=== PATIENT | female | born 1940 | race Caucasian/White ===

== ENCOUNTER 2019-06-20 12:53 | Outpatient (CLI) | payer MEDICARE, OTHER, SELFPAY ==
--- NOTE | 2019-06-20 13:01 | XR_ITS ---
WS: [id number] Left rib detail, 06/20/2019 Clinical Data: ATYPICAL CHEST PAIN Comparison: PA and lateral chest, 06/20/2019. Findings: No rib fractures are seen. There are clips in the left axilla and the left breast. There is no pneumo thorax or subcutaneous emphysema. There is patchy atelectasis in the left lung base with a possible s mall effusion. XR/XR ribs LT 2V* [id number] Impression: 1. Negative for left rib 2. Atelectasis in the left lung base with minimal left effusion and recommend r epeat PA and lateral chest in 2-3 days.
--- NOTE | 2019-06-20 13:01 | XR_ITS ---
WS: [id number] Chest 2 views, 06/20/2019 Clinical Data: ATYPICAL CHEST PAIN Comparison: AP portable chest, 04/23/2009. Findings: No nodules, masses or effusions are seen. The heart is normal. The pulmonary vascularity is not increased. No pneumonia or pneumothorax is seen. The aortic arch and descending aorta show calci fication and tortuosity. There are clips overlying the left breast and left axilla. There is minimal atelectasis at the left costophrenic angle. XR/XR chest 2V* [id number] Impression: Atherosclerosis.
== END 2019-06-20 12:54 | disposition home or self-care (01) ==
PROVIDERS: Family Provider Family Medicine; PCP Family Medicine; Visit Provider Family Medicine
DX: J98.11 Atelectasis (principal); I70.0 Atherosclerosis of aorta; R07.89 Other chest pain
CPT/HCPCS: 71046; 71100

== ENCOUNTER 2019-07-09 07:41 | Outpatient (CLI) | payer MEDICARE, OTHER, SELFPAY ==
--- NOTE | 2019-07-09 08:12 | CT_ITS ---
WS: [id number] CT CHEST TECHNIQUE: Contrast enhanced CT of the chest with coronal and sagittal reformatted images. CLINICAL INFORMATION: PLEURAL EFFUSION COMPARISON: None. DLP: 737.[address] scans at [facility] use at least one of these dose optimization techniques: automat ed exposure control; mA and/or kV adjustment per patient size (includes targeted exams where dose is matched to clinical indication); or iterative reconstruction. FINDINGS: Prior postoperative changes left lumpectomy with surgical clips in the left axilla. Small left pleura l effusion with compressive atelectasis in the left lung base. Left upper lobe pleural-based pulmonar y lesion measuring 1.6 x 1.4 x 2.1 cm. This is deep to the breasts surgical clips from prior lumpecto my. Some soft tissue thickening in the adjacent chest wall may represent local metastatic spread vers us primary lung lesion. Enlarged numerous lymph nodes in the lower left neck, anterior mediastinum, A P window, and hilum bilaterally. Enlarged paratracheal lymph nodes. Enlarged subcarinal lymph nodes. Largest lymph nodes measure approximately 1.3 CM. Subsegmental atelectasis extending to the left hilum. Calcified granuloma right upper lobe. Calcified hilar and subcarinal lymph nodes. No axillary lymphadenopathy. Proximal main pulmonary arteries appear normal. Normal caliber thoracic aorta. Adrenal glands are normal. Small esophageal hiatal hernia. Low-attenuation lesions within the liver the largest in the left hepatic lobe measuring 12 mm. These most likely represent hepatic cysts but some are too small to characterize. Liver is only partially visualized. CT/CT chest w con* [id number] IMPRESSION: 1. Left upper lobe subpleural pulmonary lesion measuring 1.6 x 1.4 x 2.1 cm wi th subsegmental atelectasis extending to the left hilum. Findings are suspiciou s for neoplasm. Adjacent lumpectomy clips in the overlying breast. This may rep resent local metastatic spread of disease versus primary lung lesion. This is n ot easily amenable to CT-guided biopsy due to subpectoral location. Consider PE T/CT for further evaluation. 2. Small left pleural effusion with compressive atelectasis left lung base. 3. Lymphadenopathy in the lower neck. Lymphadenopathy anterior mediastinal, pa ratracheal, and hilum bilaterally suspicious for metastatic disease. 4. A few low-attenuation lesions in the liver likely represent hepatic cysts h owever some are too small to characterize. This can be followed up with ultraso und and/or CT abdomen pelvis. 5. Small esophageal hiatal hernia.
[2019-07-09 08:36] LABS: Blood Urea Nitrogen 10 mg/dL (8-23)
[2019-07-09] MEDS: iohexol 300 mg/mL 100 mL Btl IV (08:44)
== END 2019-07-09 07:42 | disposition home or self-care (01) ==
LOC: RADWPI 07:45
PROVIDERS: Family Provider Family Medicine; PCP Family Medicine; Visit Provider Family Medicine
DX: J90 Pleural effusion, not elsewhere classified (principal); J98.4 Other disorders of lung; R59.0 Localized enlarged lymph nodes; K44.9 Diaphragmatic hernia without obstruction or gangrene
CPT/HCPCS: 71260; 82565; 84520; Q9967

== ENCOUNTER 2019-08-03 06:34 | Day surgery (SDC) | payer MEDICARE, OTHER, SELFPAY ==
[2019-08-02 13:25] VITALS: BMI 26.4
[2019-08-03] VITALS (14 sets, daily range): BP systolic 121–189; BP diastolic 71–95; PULSE 72–95; RESP 14–26; TEMP 36.1–36.6; O2SAT 91–98
[2019-08-03] MEDS: sodium chloride 0.9% 1,000 ML 30 ML IV (07:15)
[2019-08-03] MEDS: scopolamine 1.5 Patch 1 PATCH TRANSDERMA (07:15)
--- NOTE | 2019-08-03 07:19 | ANES.PREANE2 ---
Pre-Anesthetic Assessment Pre-Anesthetic Assessment: Height/Weight: Height 1.6 m Weight 67.585 kg Temp Pulse Resp BP Pulse Ox 97.7 F 89 16 121/71 95 08/03/19 07:03 08/03/19 07:03 08/03/19 07:03 08/03/19 07:03 08/03/19 07:03 Preop Diagnosis: Possible lung malignancy Proposed Procedure: Operation Date: 08/03/19 08:10 Proposed Procedures p Ebus(Not Applicable) - Jared Sykes MD s navigational Bronchoscopy w para(Not Applicable) - Jared Sykes MD Last intake: Intake Last Liquid Date 08/02/19 Last Liquid Time 22:00 Last Solid Date 08/02/19 Last Solid Time 21:00 Social: Social History: No alcohol and No tobacco Exam: Pre-Anes Outpt Exam: alert, oriented x 3, clear to auscultation bilaterally and regular rate & rhythm Airway: Submandibular: WNL Cervical ROM: WNL MP: 1 Dentition: False (lower) and Other (teeth ok) Additional comments: severe PONV History/ROS: No significant history except as noted Pulmonary: Pulmonary: BRANDT Comments: lung mass CV/HEM: CV/HEM: None reported : : None reported Hepatic: Hepatic: None reported GI: GI: GERD (occ) Metabolic: Metabolic: None reported Musc/skel: Musc/skel: None reported Neuropsych: Neuropsych: Anxiety and Depression Anesthetic Plan: ASA status: 3 Anesthesia: Anesthesia Evaluation and General Risk of > 500 ml blood loss (7ml/kg in children): No Meds/Allergies Current Medications: Current Medications Generic Name Dose Route Start Last Admin Trade Name Freq PRN Reason Stop Dose Admin Sodium Chloride 1,000 mls @ 30 ml s/hr 08/03/19 07:00 08/03/19 07:15 Sodium Chloride 0.9% IV 08/04/19 06:59 30 mls/hr .Q24H MAGDALENA Administration PFSH Anesthesia PFSH: Medical History Breast cancer Breast - Ductal carcinoma Left breast in 2003. Lumpectomy and chemotherapy done in [facility]. she states that she follows up with the oncology department in [facility]. Depression Labial abscess - Anticipated performing a vulvar biopsy, that after the local was injected and purulent drainage returned the procedure was transitioned to an I&D. small amount of pus noted; flushed til clear Still uncertain if abscess versus mass Start clindamycin oral x 10 days Warm water soaks several times/day Vegetable shortening for skin barrier due to incontinence If no improvement after abx, needs biopsy Return in 3 weeks if needed Parathyroid dysfunction Patient denies medical problems Patient denies any past medical history of hypertension, diabetes, heart, lung, liver, kidney, bleeding, or clotting problems. Surgical History History of dilation and curettage Done for heavy bleeding in 1965 History of loop electrical excision procedure (LEEP) Done for an abnormal Pap smear in 1999. She states that all Pap smears since then have been normal. History of lumpectomy of left breast Left breast cancer 2003. She states that she had lymph node removal a month after this procedure. History of parathyroidectomy Done in the Family History Mother Diabetes Thyroid condition Brother Diabetes Father Heart disease Family/Other Patient denies medical problems Patient denies any family history of hypertension, stroke, hypercholesterolemia, breast cancer, ovarian cancer, uterine cancer, colon cancer. Social History Smoking and tobacco status: never smoked Alcohol intake: never Lives independently: Yes Household members: none Marital status: / Current occupational status: retired History of recent travel: No Current gender identity: Female Data Anesthesia Cardiac Studies: No Data to Display
--- NOTE | 2019-08-03 07:35 | CT_ITS ---
WS: [id number] CT CHEST TECHNIQUE: Noncontrast CT of the chest with coronal and sagittal reformatted images. CLINICAL INFORMATION: Lung Nodule COMPARISON: CT July 09, 2019 DLP: 501.[address] scans at [facility] use at least one of these dose optimization techniques: automat ed exposure control; mA and/or kV adjustment per patient size (includes targeted exams where dose is matched to clinical indication); or iterative reconstruction. FINDINGS: Images obtained for planning bronchoscopy. Again seen is the left upper lobe subpleural pulmonary les ion measuring 1.6 x 1.4 x 2.1 cm. Subsegmental atelectasis extends to the left hilum unchanged suspic ious for neoplasm. Adjacent lumpectomy clips in the overlying breast. Small left pleural effusion has improved. Lymphadenopathy in the lower neck and anterior mediastinum, paratracheal, and hilum. Small esophageal hiatal hernia. A few low-attenuation lesions in the liver likely hepatic cyst but some are too small to characterize. Small pericardial effusion. CT/CT chest wo con [id number] IMPRESSION: Images obtained for bronchoscopy guidance.
--- NOTE | 2019-08-03 07:49 | W.PM.OPSUD ---
Surgery/Procedure H&P Update DATE OF PROCEDURE: August 03, 2019 DATE H&P PERFORMED: 07/26/19 H&P UPDATE INFORMATION: I have reviewed H&P completed within last 30 days, I have examined patient prior to procedure and No changes to prior documentation PREOP DIAGNOSIS: Possible lung malignancy PLANNED PROCEDURE: With inspection of the airway, endobronchial; transbronchial swab nodes, and navigational bronchoscopy guided transbronchial biopsies and fine-needle aspiration of the left upper lobe lung nodule and left-sided thoracentesis. Operation Date: 08/03/19 08:10 Proposed Procedures p Ebus(Not Applicable) - Jared Sykes MD s navigational Bronchoscopy w para(Not Applicable) - Jared Sykes MD
--- NOTE | 2019-08-03 08:20 | PM.ACPR ---
Procedure/Consent Time out: Time Out Performed: Yes Consent: Consent for Procedure: Consent obtained from patient Procedure Narrative: Name of the procedure: Left sided thoracentesis. Indication: Suspicion for malignant pleural effusion Anesthetics: Local anesthesia with 1% lidocaine. IV pain medication: None. Description of the procedure: The procedure was explained to the patient in detail including the risks and a consent was obtained. The left hemithorax was scanned with ultrasound to find a safe fluid pocket. Small free-flowing fluid was noted. There was no complexity. Following identification of the fluid pocket the site was marked. The site was cleaned using sterile technique. Lidocaine 1% was injected into the skin and the subcutaneous tissue. Subsequently, the periosteum in the parietal pleural was also anesthetized using lidocaine. The pleural space was entered in the posterior axillary line in the left sixth intercostal space. Straw-colored fluid was aspirated. About 460 cc of fluid was aspirated. Sample: The pleural fluid was sent for cell count and differential, pH, protein, LDH, albumin, Gram stain and culture, fungal stain and culture, AFB stain and culture and cytology. Complications: None. Acute Procedures Epistaxis Control: Time out performed: Yes
[2019-08-03 08:45] LABS: Mononuclear %, Pleural Fluid 96 %; Polynuclear Cells, Pleural % 4 %
[2019-08-03 09:23] LABS: LDH Pleural Fluid 198 U/L; Total Protein Body Fluid 5 g/dL; Triglycerides, Pleural Fluid 14 mg/dL
[2019-08-03 09:24] LABS: Appearance, Pleural Fluid CLEAR (CLEAR); Color, Pleural Fluid Yellow (Pale Yellow)
[2019-08-03] MEDS: EPINEPHrine 1 mg/mL INJ XX (09:28)
[2019-08-03] MEDS: lidocaine 1% INJ 20 mL XX (09:29)
--- NOTE | 2019-08-03 11:39 | SUR.PHASEI ---
1138 PATIENT TO PACU AT THIS TIME FROM OR. RR EVEN AND UNLABORED. ORAL AIRWAY IN PLACE. SPO2 95% ON SIMPLE MASK AT 8L. PATIENT NOTED TO BE SLEEPING, PROTECTING AIRWAY.
--- NOTE | 2019-08-03 11:48 | PM.OP ---
Operative Report Date of procedure: August 03, 2019 Pre-op Diagnosis: Possible lung malignancy Post-op diagnosis: same Brief History: 79-year-old lady with left upper lobe lung nodule and PET positive lymph nodes coming in for bronchoscopy evaluation for suspected lung malignancy. Procedure: Name of the procedure: Bronchoscopy with inspection of the airway, bronchoalveolar lavage, endobronchial biopsies, endobronchial ultrasound-guided transbronchial needle aspiration of lymph nodes, navigational bronchoscopy guided transbronchial biopsies, fine-needle aspiration and control of bleeding. Indication: PET positive left upper lobe pulmonary nodule and mediastinal lymphadenopathy. Anesthesia: General anesthesia. Local anesthesia: The kathleen in the right and left mainstem bronchi were anesthetized with 1% lidocaine, 3 mL. Description of the procedure: The procedure was explained to the patient and the consent was obtained. The patient was brought to the OR. The patient underwent endotracheal intubation for general anesthesia. Following induction of general anesthesia, the bronchoscope was advanced through the ET tube. The lower trachea appeared to be somewhat narrowed due to excessive dynamic airway compression. The kathleen was splayed. The kathleen, the right and left mainstem bronchi are anesthetized with 1% lidocaine. In a systematic manner bilateral bronchial tree was then examined. The bronchoscope was advanced into the left mainstem bronchus. There was mucosal irregularity in the left secondary kathleen. There was also significant mucosal swelling. The bronchoscope can only be advanced up to the third subsegmental level in the anterior and apical posterior segments. The bronchoscope could be passed after the first subsegmental level in the lingular segment. There was some mucosal swelling of the left lower lobe bronchus as well. The bronchoscope was then introduced into the right mainstem bronchus. The right upper lobe, right middle lobe and right lower lobe bronchi were examined up to the third subsegmental level and no abnormalities were identified. Endobronchial biopsies were performed from the left secondary kathleen. 4 samples are obtained. Bronchoalveolar lavage was performed from the left upper lobe. 60 mL of normal saline was instilled, fluid return was 20 mL. Using navigational bronchoscopy, transbronchial biopsies were performed from the left upper lobe nodule. Multiple samples were obtained. Fine-needle aspiration was also obtained. The endobronchial ultrasound was introduced through the ET tube. Mediastinal and hilar lymphadenopathy was identified with the ultrasound. The lymph nodes did not show distinct cortex and Medela. Transbronchial needle aspiration was performed from 7, 4R, 10 R lymph node groups. Samples: 1. Bronchoalveolar lavage specimen was sent for Gram stain and culture, fungal stain and culture, AFB stain and culture, and cytology. 2. The endobronchial biopsies are sent for histopathology. 3. The transbronchial biopsies are sent for histopathology. The fine-needle aspiration was sent for cytology. 4. The transbronchial needle aspiration of the aforementioned lymph node groups were sent for cytology. Complications: There was no immediate complications. Follow-up: 1. Follow-up with me in 2 weeks time as outpatient.
--- NOTE | 2019-08-03 12:02 | SUR.PHASEI ---
1202 ORAL AIRWAY REMOVED AT THIS TIME. SPO2 97% ON SIMPLE MASK AT 8L.
[2019-08-03 12:27] LABS: PATH Referal YES
--- NOTE | 2019-08-03 12:34 | SUR.PHASEI ---
1231 PATIENT TO OPS AT THIS TIME. RR EVEN AND UNLABORED. DENIES PAIN.
== END 2019-08-03 15:15 | disposition home or self-care (01) ==
PROVIDERS: Internal Medicine Critical Care Medicine; Family Provider Family Medicine; PCP Family Medicine; Visit Provider Pathology Anatomic Pathology & Clinical Pathology
PROC: BB4BZZZ Ultrasonography of Pleura (ICD-10-PCS; CPT 31624; principal; 2019-08-03 08:10)
PROC: 0BJ08ZZ Inspection of Tracheobronchial Tree, Via Natural or Artificial Opening Endoscopic (ICD-10-PCS; CPT 31622; 2019-08-03 08:10)
DX: R91.8 Other nonspecific abnormal finding of lung field (principal); K21.9 Gastro-esophageal reflux disease without esophagitis; Z85.3 Personal history of malignant neoplasm of breast; Z82.49 Family history of ischemic heart disease and other diseases of the circulatory system; Z83.3 Family history of diabetes mellitus
CPT/HCPCS: 31624; 31625; 31629; 31653; 32554; 12345; 71250; 80500; 82945; 83615; 83986; 84157; 84478; 87070; 87075; 87186; 87205; 88112; 88173; 88305; 89050; J0171; J1100; J2001; J2405; J2704; J3010; J3490; J7030

== ENCOUNTER 2019-08-17 12:28 | Outpatient (CLI) | payer MEDICARE, OTHER, SELFPAY ==
--- NOTE | 2019-08-19 09:20 | ONC CON_ITS ---
Dr. Pedersen New Patient Note Patient: Melony Chu Unit #: [id number]: 1940 Dicatated By: Parth Pedersen M.D.Date of Visit: August 17, 2019 Onc MED New Patient/Consult Referring Physician: Dr. NICK SYKES M.D. Chief Complaint: Lung cancer. 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 Her disease appears to be stage IIIB (T1c, N3, M0). She has a history of having undergone lumpectomy/axillary lymph node sampling and radiation for left breast cancer in 2003. She also was given adjuvant chemotherapy and adjuvant hormonal therapy. She has had no evidence of recurrence of the breast cancer. In June 2019 she sustained an injury to her left chest after falling out of bed at night. Her chest/rib x-rays on 06/20/2019 showed atelectasis at the left lung base with minimal left effusion. There was no evidence for rib fracture. She continued to have pain, and she then had further evaluation with chest CT on 07/09/2019. That study showed a pleural-based pulmonary lesion in the left upper lobe measuring 1.6 x 1.4 x 2.1 cm. There was some soft tissue thickening in the adjacent chest wall. Numerous enlarged lymph nodes were noted in the lower neck, anterior mediastinum, AP window, and hilum bilaterally. This included enlarged paratracheal and enlarged subcarinal lymph nodes. The largest measured 1.3 cm. PET/CT on 07/21/2019 showed FDG avid subpleural nodule in the anterior left upper lobe measuring 1.9 x 1.5 cm, SUV 4.9. This appeared to most likely represent a primary lung carcinoma. A right lower lobe perihilar nodule measuring 2.7 x 1.7 cm was FDG avid with SUV 5.8. FDG positive lymph nodes were noted in the bilateral paratracheal, prevascular, subaortic, subcarinal, and bilateral hilar territories. Malignant nodes were also evident in the neck bilaterally, including bilateral supraclavicular, bilateral level IV, and left level III jugulodigastric territories. There was no evidence of other metastatic disease. She was referred to Dr. Sykes, and on 08/03/2019 she underwent bronchoscopy/EBUS with FNA biopsies of left upper lobe nodule and multiple lymph nodes. The left upper lobe mass biopsy showed non-small cell carcinoma, with further studies pending. Biopsies of station 4R, station 7, and station 10R nodes were all positive for metastatic non-small cell carcinoma. She is still feeling pretty good generally. She is still having significant pain in her upper left chest/upper back. The pain is worse with coughing. It has been significant enough to restrict her activity. Her ECOG score is 1. Her energy, though, is still pretty good, and she has good appetite. Her weight is stable. She has no fever or night sweats. She has noticed some change in her voice. She has no difficulty swallowing. She has some shortness of breath. She does not complain of cough. She has had no hemoptysis. She sometimes has acid reflux. She has no other GI or complaints. She has no other joint or bone pain. She does not complain of headache or dizziness, and she has no focal neurologic symptoms. Past Medical History: Her medical history includes osteoporosis and anxiety/depression. She has a history of Graves disease, treated medically. She has a history of parathyroid dysfunction, and she underwent treatment for left breast cancer in 2003. Past Surgical History: She underwent navigational bronchoscopy with EBUS and biopsies of left lung mass and mediastinal lymph nodes on 08/03/2019. Her other surgical/procedural history includes bilateral cataract excisions, left breast lumpectomy and axillary lymph node sampling in 2003, LEEP procedure in 1999, D & C in 1995, and parathyroidectomy in 1992. Medications: Calcium + D 1 Tablet (of 500-400 mg - Units) Oral daily, Escitalopram Oxalate 1 Tablet (of 20 mg) Oral daily, Multivitamin Adult 1 Tablet Oral daily, Probiotic Acidophilus 1 Tablet Oral daily Allergies: Codeine Sulfate Social History: Ms. Chu is . 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 She is a non-smoker. She does not drink alcohol. Family History: Father of heart disease at age 76. Mother had diabetes and stroke. She lived age 93. A brother age 73 with complications of diabetes. One sister is still living. She has COPD and history of pulmonary embolism. Her maternal grandmother had some type of GREY TENDER cancer. Review Of Symptoms: Constitutional - She generally feels okay. She has good energy. She is able to do most of her normal activity along with some light walking. Her appetite is good and weight is stable. No fever, chills, hot flashes, or night sweats. ECOG score is 1, Eyes - No recent change in vision, ENMT - She has hearing loss. No tinnitus. No sinus congestion/drainage. No mouth sores. No sore throat or difficulty swallowing. She reports a change in her voice, Hematologic/Lymphatic - No abnormal bruising or bleeding, Respiratory - She has been having shortness of breath with activity. No cough. She has been having significant pleuritic pain. No hemoptysis, Cardiovascular - No angina pain. No palpitations, Gastrointestinal - No nausea or vomiting. She sometimes has acid reflux. No diarrhea or constipation. No blood in the stool or black stools, Genitourinary (F) - No dysuria or hematuria. No urinary frequency. No urgency or incontinence, Musculoskeletal - No other joint or bone pain, Integumentary - No skin complications, Neurologic - No headache or dizziness. No numbness/paresthesias or other focal neurologic symptoms, Psychiatric - She has anxiety/depression that is adequately managed with Lexapro. She occasionally has difficulty sleeping. Vital Signs: Performed on August 17, 2019 12:50: 0, 26.43, 1.71 sq.m, 63.00 in, 95 % (LOW), 92 /min, 22 /min, 125/74 mm(hg), 98.1 F (LOW), and 149.2 lbs (HIGH). Physical Examination: Constitutional - She appears to be in good general health, Eyes - Sclerae nonicteric. Conjunctivae clear, ENMT - No lesions noted in the oral cavity, Neck - No mass or thyromegaly, Hematologic/Lymphatic - There does appear to be a small node palpable in the lower cervical area on the left side. I do not feel any other cervical or clavicular adenopathy, Respiratory - Lungs are clear with good air movement bilaterally, Cardiovascular - Heart rhythm is regular. There is no murmur, gallop, or rub noted, Breasts - There is mild induration of the left breast. There are no breast masses noted. There is no axillary adenopathy noted, Abdomen - Soft and non-tender. Liver and spleen are not enlarged. There is no abdominal mass or ascites noted and there is no inguinal adenopathy, Back/Spine - No spine or CVA tenderness noted, Extremities - No edema. Posterior tibial pulses are palpable bilaterally, Integumentary - No rashes. No suspicious skin lesions noted, Neurologic - No focal neurologic deficits noted. Impression: 1. 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 There is biopsy proven mediastinal lymph node involvement. By PET/CT, her disease appears to be stage IIIB (T1c, N3, M0). 2. She has remote history of left breast cancer for which she underwent lumpectomy/radiation, adjuvant chemotherapy, and adjuvant hormonal therapy. Metastatic breast cancer is not entirely excluded, but it appears unlikely. Based on the location of the left upper lobe lung nodule and the fact that she is a non-smoker, this may be a radiation-induced malignancy. Her other medical illnesses include: 3. She has a history of Graves' disease, treated medically. 4. She has a history of parathyroidectomy for parathyroid dysfunction, I assume hyperparathyroidism. 5. Osteoporosis. 6. Anxiety/depression. Plan: The PET/CT findings and the pathology results were reviewed with the patient. I also reviewed the CT and PET/CT images. She has non-small cell carcinoma involving a subpleural nodule in the upper lobe of the left lung. She does have significant pain associated with it. There is also biopsy proven mediastinal lymph node involvement and PET/CT evidence of numerous involved nodes in the mediastinum, both efraín, and both sides of the neck. At this point I cannot exclude the possibility of metastatic breast cancer, but I think this is most likely a primary non-small cell lung cancer, and it very well may be a radiation-induced malignancy. With his extent of lymph node involvement she is obviously not a surgical candidate, and with her prior breast radiation, it is also unlikely that her disease can be treated with radiation. As such, her treatment will likely be limited to systemic therapy options. Specific treatment recommendations will be dependent on results of additional pathologic studies, and I will first have to confer with the pathologist to see whether there is sufficient material available for IHC studies and for next generation sequencing. In the meantime, she will be given a prescription for meloxicam 15 mg daily, as she does seem to getting some benefit taking aspirin. Signed By: Parth Pedersen M.D. <<Signature on File>>
== END 2019-08-17 12:29 | disposition home or self-care (01) ==
LOC: ONCMED 12:28
PROVIDERS: PCP Family Medicine; Visit Provider Internal Medicine Medical Oncology
DX: C34.12 Malignant neoplasm of upper lobe, left bronchus or lung (principal); C77.8 Secondary and unspecified malignant neoplasm of lymph nodes of multiple regions; Z85.3 Personal history of malignant neoplasm of breast; Z90.12 Acquired absence of left breast and nipple; Z92.3 Personal history of irradiation; Z92.21 Personal history of antineoplastic chemotherapy; Z79.818 Long term (current) use of other agents affecting estrogen receptors and estrogen levels; E05.00 Thyrotoxicosis with diffuse goiter without thyrotoxic crisis or storm; E21.3 Hyperparathyroidism, unspecified; E89.2 Postprocedural hypoparathyroidism; M81.0 Age-related osteoporosis without current pathological fracture; F41.8 Other specified anxiety disorders; Z79.899 Other long term (current) drug therapy
CPT/HCPCS: 99205

== ENCOUNTER 2019-08-24 13:25 | Outpatient (CLI) | payer MEDICARE, OTHER, SELFPAY ==
--- NOTE | 2019-08-24 | US_ITS ---
WS: [id number] ULTRASOUND SOFT TISSUES LEFT neck. HISTORY: LT SIDE OF NECK/, PET/CT positive lymph nodes. Evaluate for safety and possibility of access for fine-needle aspiration. COMPARISON: None available. TECHNIQUE: 2-D and color Doppler imaging is submitted. Multiple abnormal lymph nodes are noted within the LEFT neck. These correspond to the location of the abnormal lymph nodes on the PET/CT. These would be safe for ultrasound-guided fine-needle aspiration . Largest lymph node measures up to 1.2 cm in diameter. US/US soft tissue/extremity [id number] IMPRESSION: Multiple abnormal lymph nodes in the LEFT neck. These would be safer fine-needl e aspiration.
== END 2019-08-24 13:26 | disposition home or self-care (01) ==
LOC: RAD 13:30
PROVIDERS: PCP Family Medicine; Visit Provider Internal Medicine Medical Oncology
DX: R59.0 Localized enlarged lymph nodes (principal)
CPT/HCPCS: 76882

== ENCOUNTER 2019-08-31 12:53 | Outpatient (CLI) | payer MEDICARE, OTHER, SELFPAY ==
--- NOTE | 2019-08-31 13:42 | XR_ITS ---
WS: [id number] PROCEDURE: XR chest 2V* [id number] CLINICAL INFORMATION: SHORT OF BREATH COMPARISON: CT August 03, 2019 and radiograph June 20, 2019 FINDINGS: Heart: Normal cardiac silhouette. Aortic calcification. Lungs: Moderate chronic emphysematous change. Small left pleural effusion with compressive atelectasi s/infiltrate in the left lower lobe. Recommend correlation for pneumonia. Right lung is well aerated. Bones: Osteopenia. Surgical clips left breast and axilla. XR/XR chest 2V* [id number] IMPRESSION: 1. Small left pleural effusion with compressive atelectasis/infiltrate in the left lower lobe. Recommend correlation for pneumonia. This appears increased si nce the prior CT August 02, 2019 2. Right lung is well aerated. 3. Left upper lobe subpleural pulmonary lesion better seen on the prior CTs.
--- NOTE | 2019-09-03 19:21 | ONC FU_ITS ---
Dr. Pedersen Patient Follow-Up Note Patient: Melony Chu Unit #: [id number]: [id number] Dicatated By: Parth Pedersen M.D.Date of Visit:August 31, 2019 Onc Med Follow-up/Prog Note Chief Complaint: Lung cancer. 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 Her disease appears to be stage IIIB (T1c, N3, M0). She has a history of having undergone lumpectomy/axillary lymph node sampling and radiation for left breast cancer in 2003. She also was given adjuvant chemotherapy and adjuvant hormonal therapy. She has had no evidence of recurrence of the breast cancer. In June 2019 she sustained an injury to her left chest after falling out of bed at night. Her chest/rib x-rays on 06/20/2019 showed atelectasis at the left lung base with minimal left effusion. There was no evidence for rib fracture. She continued to have pain, and she then had further evaluation with chest CT on 07/09/2019. That study showed a pleural-based pulmonary lesion in the left upper lobe measuring 1.6 x 1.4 x 2.1 cm. There was some soft tissue thickening in the adjacent chest wall. Numerous enlarged lymph nodes were noted in the lower neck, anterior mediastinum, AP window, and hilum bilaterally. This included enlarged paratracheal and enlarged subcarinal lymph nodes. The largest measured 1.3 cm. PET/CT on 07/21/2019 showed FDG avid subpleural nodule in the anterior left upper lobe measuring 1.9 x 1.5 cm, SUV 4.9. This appeared to most likely represent a primary lung carcinoma. A right lower lobe perihilar nodule measuring 2.7 x 1.7 cm was FDG avid with SUV 5.8. FDG positive lymph nodes were noted in the bilateral paratracheal, prevascular, subaortic, subcarinal, and bilateral hilar territories. Malignant nodes were also evident in the neck bilaterally, including bilateral supraclavicular, bilateral level IV, and left level III jugulodigastric territories. There was no evidence of other metastatic disease. She was referred to Dr. Sykes, and on 08/03/2019 she underwent bronchoscopy/EBUS with FNA biopsies of left upper lobe nodule and multiple lymph nodes. The left upper lobe mass biopsy showed non-small cell carcinoma. Biopsies of station 4R, station 7, and station 10R nodes were all positive for metastatic non-small cell carcinoma. On further pathologic analysis the tumor was felt to be most consistent with poorly differentiated adenocarcinoma, most likely of lung origin. The tumor cells were positive for TTF-1, Napsin, CK-Navdeep, and CK7. The breast markers, including GCDFP and BCA 225 were negative. A next generation sequencing study was requested but was not able to be done because the biopsy sample was insufficient. She is seen for an unplanned visit. She is tentatively scheduled to have additional biopsies obtained from a cervical lymph node for further pathologic analysis in order to determine most appropriate therapy for her. In the meantime, she has been getting more short of breath, to the point that she is having difficulty walking and talking at the same time. She also complains that when she bends over she is unable to get her breath. She has having more pain in her back, particularly when she is sitting and when she is lying in bed. She has had decline in her activity tolerance. Her ECOG score is 1. Her appetite is still pretty good. She has not had fever or cough. She sometimes has sweating at night. She has having a little nausea. Bowel and bladder function remain adequate. She has no focal neurologic symptoms. Medications: Calcium + D 1 Tablet (of 500-400 mg - Units) Oral daily, Escitalopram Oxalate 1 Tablet (of 20 mg) Oral daily, Multivitamin Adult 1 Tablet Oral daily, Probiotic Acidophilus 1 Tablet Oral daily Allergies: Codeine Sulfate Vital Signs: Performed on August 31, 2019 13:03 Height - 63.00 in Weight - 145.8 lbs (LOW) BSA - 1.69 sq.m BMI - 25.83 Temperature - 98.0 F (LOW) Pulse - 83 /min Respiration - 24 /min BP - 117/69 mm(hg) O2 Sat - 97 % Pain - 0 Physical Examination: Constitutional - She does not appear acutely ill, Hematologic/Lymphatic - There is no adenopathy in the neck or axilla, Respiratory - Her lungs sound clear, but with diminished air movement and dullness at the left base, Cardiovascular - Heart rhythm is regular. There is no murmur, gallop, or rub noted, Extremities - Extremities show no edema. Lab/Imaging: Chest x-ray shows a small left pleural effusion with compressive atelectasis/infiltrate in the left lower lobe. Correlation was recommended for pneumonia. Impression: 1. 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 There is biopsy proven mediastinal lymph node involvement. By PET/CT, her disease appears to be stage IIIB (T1c, N3, M0). 2. She has remote history of left breast cancer for which she underwent lumpectomy/radiation, adjuvant chemotherapy, and adjuvant hormonal therapy. Her other medical illnesses include: 3. She has a history of Graves' disease, treated medically. 4. She has a history of parathyroidectomy for parathyroid dysfunction, I assume hyperparathyroidism. 5. Osteoporosis. 6. Anxiety/depression. She comes in with increased shortness of breath. Her chest x-ray does show some pleural effusion on the left, but still relatively small. There also is some consolidation and possible pneumonia. Plan: We will plan to proceed with the biopsy next week, as scheduled. She does not appear to have enough effusion to justify thoracentesis. She will be given empiric antibiotic coverage with Levaquin for the suspected pneumonia. Signed By: Parth Pedersen M.D. <<Signature on File>>
== END 2019-08-31 12:54 | disposition home or self-care (01) ==
PROVIDERS: PCP Family Medicine; Visit Provider Internal Medicine Medical Oncology
DX: C34.12 Malignant neoplasm of upper lobe, left bronchus or lung (principal); C77.1 Secondary and unspecified malignant neoplasm of intrathoracic lymph nodes; J90 Pleural effusion, not elsewhere classified; Z86.39 Personal history of other endocrine, nutritional and metabolic disease; M81.0 Age-related osteoporosis without current pathological fracture; F41.8 Other specified anxiety disorders; Z85.3 Personal history of malignant neoplasm of breast; Z79.2 Long term (current) use of antibiotics; Z92.3 Personal history of irradiation
CPT/HCPCS: 71046; G0463

== ENCOUNTER 2019-09-04 08:09 | Outpatient (CLI) | payer MEDICARE, OTHER, SELFPAY ==
--- NOTE | 2019-09-04 08:31 | US_ITS ---
WS: [id number] ULTRASOUND GUIDED BIOPSY LEFT NECK LYMPH NODE. HISTORY: Possible metastatic disease in the LEFT cervical chain lymph nodes. Biopsy is necessary. Procedure, risks, and complications are explained to the patient. Consent was obtained. Skin is clean sed with ChloraPrep and anesthetized with 1% buffered lidocaine. Core biopsy and fine-needle aspiration or obtain of abnormal lymph node in the LEFT neck. There are m ultiple abnormal lymph nodes. These are low-attenuation lymph nodes which are rounded with loss of th e normal fatty efraín. Biopsy is obtained with a 20-gauge core needle and an aspiration with an 18-gaug e needle also submitted. Skin is cleansed with ChloraPrep and anesthetized with 1% buffered lidocaine . Small dermatome is made. Multiple core biopsies are performed with 20-gauge needle. Specimen is alverto symone in formalin as requested by pathology. Additional aspirate was obtained in a sterile cup for cyto logy. No complications. Patient will be discharged home. US/US biopsy lymph node [id number] IMPRESSION: 1. Uncomplicated 20-gauge core biopsy of abnormal lymph node along the LEFT ce rvical chain and fine-needle aspiration. Specimen is placed within contain as r equested by pathology. 2. Patient discharged home to follow-up with Dr. Pedersen.
[2019-09-04 08:41] VITALS: BMI 26.0
[2019-09-04 09:12] LABS: INR 0.98 (0.8-1.2)
[2019-09-04 10:23] VITALS: BP 131/86; PULSE 93; RESP 18; TEMP 37.1; O2SAT 94
[2019-09-04 10:33] VITALS: BP 128/82; PULSE 93; RESP 18; O2SAT 94
== END 2019-09-04 08:10 | disposition home or self-care (01) ==
LOC: OR 08:18
PROVIDERS: Radiology Diagnostic Radiology; PCP Family Medicine; Visit Provider Internal Medicine Medical Oncology
DX: R59.9 Enlarged lymph nodes, unspecified (principal)
CPT/HCPCS: 10005; 10160; 38505; 76942; 85610; 88173; 88305; J2001

== ENCOUNTER 2019-09-11 13:14 | Outpatient (CLI) | payer MEDICARE, OTHER, SELFPAY ==
--- NOTE | 2019-09-11 13:26 | CT_ITS ---
WS: [id number] CT angio chest PE protcl [id number] REASON FOR EXAM: SHORTNESS OF BREATH TECHNIQUE: Coronal and sagittal 2-D and MIP reformations. IV CONTRAST ADMINISTERED: Omnipaque 350, 60 mL. TOTAL EXAM DLP: 573.[address] scans at [facility] use at least one of these dose optimization techniques: automat ed exposure control; mA and/or kV adjustment per patient size (includes targeted exams where dose is matched to clinical indication); or iterative reconstruction. FINDINGS: Bilateral pleural effusion is noted worse on the left side. Comparisons were made to August 03, 2019. The fluid extends up to the apex of the lung. And there is atelectasis seen in the left lung. The thyroid gland was normal supraclavicular area showed no lymphadenopathy. After the bolus injection of contrast no filling defects in the pulmonary vasculature were noted low probability of pulmonary embolus. A large calcified lymph node is seen in the azygos lymph node regio n. The upper abdomen show normal appearance of the liver lines the left upper lung again shows the area of consolidation suggesting a subpleural lesion that extends down to the right left hilum this again is suspicious of neoplasm. IMPRESSION: Persistent for lobe subpleural pulmonary lesion extends to the hilum. There is marked increased left pleural effusion with increased density weren't sure if this may not b e empyema. There was no evidence to suggest pulmonary embolus.
[2019-09-11 14:21] LABS: Blood Urea Nitrogen 8 mg/dL (8-23)
[2019-09-11] MEDS: iohexol 350 mg/mL 100 mL Btl IV (14:44)
== END 2019-09-11 13:15 | disposition home or self-care (01) ==
PROVIDERS: PCP Family Medicine; Visit Provider Internal Medicine Medical Oncology
DX: R06.02 Shortness of breath (principal); J90 Pleural effusion, not elsewhere classified
CPT/HCPCS: 36415; 71275; 82565; 84520

== ENCOUNTER 2019-09-19 10:19 | Outpatient (CLI) | payer MEDICARE, OTHER, SELFPAY ==
[2019-09-19 11:09] LABS: INR 0.95 (0.8-1.2)
--- NOTE | 2019-09-19 13:42 | US_ITS ---
WS: [id number] ULTRASOUND-GUIDED THORACENTESIS HISTORY: LUNG CA Procedure, risks, and complications were explained to the patient. With the patient in an upright pos ition, the skin over the LEFT posterior thorax was cleansed with ChloraPrep and anesthetized with 1% buffered lidocaine. A 5 Divehi Yueh needle is inserted into the pleural fluid without complication. A pproximately 1200 cc of clear pleural fluid is removed without difficulty. Pleural fluid specimen is collected for analysis as requested. / thoracentesis [id number] IMPRESSION: 1. LEFT thoracentesis yielding 1200 cc of fluid. 2. Chest radiograph to follow to evaluate for pneumothorax. 3. Specimen collected for analysis.
--- NOTE | 2019-09-19 14:44 | XR_ITS ---
WS: [id number] PORTABLE CHEST HISTORY: POST THORACENTESIS COMPARISON: 08/31/2019 Status post LEFT thoracentesis. Small residual LEFT pleural effusion present with areas of atelectasi s in the lower lung field. Small RIGHT pleural effusion. No pneumothorax. Cardiac size: Normal. Mediastinum/Aorta: Mild atherosclerosis aorta. No osseous abnormality seen. XR/XR chest 1V portable [id number] IMPRESSION: 1. Status post LEFT thoracentesis. Small residual pleural effusion and atelect asis. 2. Small RIGHT pleural effusion. 3. No pneumothorax.
== END 2019-09-19 10:20 | disposition home or self-care (01) ==
LOC: RAD 10:21
PROVIDERS: PCP Family Medicine; Visit Provider Internal Medicine Medical Oncology
DX: Z98.890 Other specified postprocedural states (principal); J90 Pleural effusion, not elsewhere classified; J98.11 Atelectasis
CPT/HCPCS: 32555; 36415; 71045; 85610; 87070; 87075; 87205; 88112; 88305

== ENCOUNTER 2019-10-05 11:29 | Outpatient (CLI) | payer MEDICARE, OTHER, SELFPAY ==
[2019-10-05 13:02] LABS: Basophils % 0.4 %; Eosinophils % 0.1 %; Hematocrit 44.1 % (37.0-47.0); Hemoglobin 14.4 g/dL (11.5-15.3); Lymphocytes # 1.3 10^3/uL (0.8-4.8); Lymphocytes % 13.1 %; Mean Corpuscular HGB Conc 32.7 g/dL (30.0-36.0); Mean Corpuscular Hemoglobin 30.5 pg (28.0-34.0); Mean Corpuscular Volume 93.4 fL (81-99); Mean Platelet Volume 8.4 fL (7.4-10.4); Monocytes % 9.7 %; Neutrophils # 7.5 10^3/uL (1.8-7.7); Neutrophils % 76.2 %; Nucleated Red Blood Cells % 0 %; Platelet Count 331 10^3/cmm (130-400); Red Blood Count 4.72 10^6/uL (4.1-5.3); White Blood Count 9.9 10^3/uL (4.0-10.0)
--- NOTE | 2019-10-05 13:19 | CTR_ITS ---
PROCEDURE INFORMATION: Exam: CT Chest With Contrast Exam date and time: 10/05/2019 1:40 PM Age: 79 years old Clinical indication: Shortness of breath; Follow-up oncological assessment; Primary cancer: Stage iiib lung; No known metastasis; Current or recent treatment: Radiation therapy; Prior surgery; Surgery date: 6+ months; Surgery type: Parathyroid; Patient HX: SOB HX of lung CA; Additional info: Lung cancer TECHNIQUE: Imaging protocol: Computed tomography of the chest with intravenous contrast. Radiation optimization: All CT scans at this facility use at least one of these dose optimization techniques: automated exposure control; mA and/or kV adjustment per patient size (includes targeted exams where dose is matched to clinical indication); or iterative reconstruction. Contrast material: OMNI 300; Contrast volume: 95 ml; Contrast route: INTRAVENOUS (IV); COMPARISON: CT chest wo con [id number] 08/03/2019 8:37 AM RADIATION DOSE METRICS: Total DLP (mGy-cm): 422.15 FINDINGS: Lungs: There is a right upper lobe granuloma. There is extensive atelectasis of the left lower lobe similar to prior scan. There is left upper lobe consolidation, increased from prior scan. Consolidated portions of the left lung cannot be evaluated for nodules. Pleural space: There is a large left pleural effusion, increased in size from the prior scan. There is a moderate right pleural effusion, increased in size from prior scan. Heart: There is a pericardial effusion. This is moderate in size, largest along the right cardiac contour where it measures 17 mm in thickness, increased from 12 mm on the prior scan. Pulmonary arteries: No pulmonary emboli. Aorta: No thoracic aortic aneurysm or dissection. Lymph nodes: There is a calcified subcarinal lymph node. Liver: There are small hypodensities in the liver measuring less than 6 mm, too small to further characterize. No change from prior scan. Bones/joints: Unremarkable. No acute fracture. Soft tissues: Unremarkable. CT/CT chest w con* [id number] IMPRESSION: 1. Large left and moderate right pleural effusions, increased in size compared with prior scan. 2. Near complete left lower lobe atelectasis similar to prior scan. Left upper lobe consolidation increased from prior scan. 3. Moderate pericardial effusion, increased from prior scan. Radiation Dose CTDIVOL = (mGy): DLP = 422.15 (mGy-cm)
[2019-10-05 13:25] LABS: Alanine Aminotransferase 27 U/L (0-33); Alkaline Phosphatase 77 IU/L (35-105); Anion Gap 18.6 (5-19); Aspartate Amino Transferase 35 U/L (0-32); Blood Urea Nitrogen 12 mg/dL (8-23); Calcium 9.9 mg/dL (8.5-10.5); Carbon Dioxide 24 mmol/L (22-29); Chloride 95 mmol/L (98-107); Globulin 3.3 g/dL (1.3-4.6); Glucose 116 mg/dL (65-115); Osmolality Calculated 273 mOsm/kg (285-295); Potassium 4.6 mmol/L (3.5-5.1); Sodium 133 mmol/L (136-145); Total Bilirubin 0.4 mg/dL (0.15-1.2); Total Protein 7.3 g/dL (6.6-8.7)
[2019-10-05] MEDS: iohexol 300 mg/mL 100 mL Btl IV (13:59)
--- NOTE | 2019-10-05 20:25 | ONC FU_ITS ---
Dr. Pedersen Patient Follow-Up Note Patient: Melony Chu Unit #: [id number]: [id number] Dicatated By: Parth Pedersen M.D.Date of Visit:Oct 05, 2019 Onc Med Follow-up/Prog Note Chief Complaint: Lung cancer. 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 Her disease appears to be stage IIIB (T1c, N3, M0). She has a history of having undergone lumpectomy/axillary lymph node sampling and radiation for left breast cancer in 2003. She also was given adjuvant chemotherapy and adjuvant hormonal therapy. She has had no evidence of recurrence of the breast cancer. In June 2019 she sustained an injury to her left chest after falling out of bed at night. Her chest/rib x-rays on 06/20/2019 showed atelectasis at the left lung base with minimal left effusion. There was no evidence for rib fracture. She continued to have pain, and she then had further evaluation with chest CT on 07/09/2019. That study showed a pleural-based pulmonary lesion in the left upper lobe measuring 1.6 x 1.4 x 2.1 cm. There was some soft tissue thickening in the adjacent chest wall. Numerous enlarged lymph nodes were noted in the lower neck, anterior mediastinum, AP window, and hilum bilaterally. This included enlarged paratracheal and enlarged subcarinal lymph nodes. The largest measured 1.3 cm. PET/CT on 07/21/2019 showed FDG avid subpleural nodule in the anterior left upper lobe measuring 1.9 x 1.5 cm, SUV 4.9. This appeared to most likely represent a primary lung carcinoma. A right lower lobe perihilar nodule measuring 2.7 x 1.7 cm was FDG avid with SUV 5.8. FDG positive lymph nodes were noted in the bilateral paratracheal, prevascular, subaortic, subcarinal, and bilateral hilar territories. Malignant nodes were also evident in the neck bilaterally, including bilateral supraclavicular, bilateral level IV, and left level III jugulodigastric territories. There was no evidence of other metastatic disease. She was referred to Dr. Sykes, and on 08/03/2019 she underwent bronchoscopy/EBUS with FNA biopsies of left upper lobe nodule and multiple lymph nodes. The left upper lobe mass biopsy showed non-small cell carcinoma. Biopsies of station 4R, station 7, and station 10R nodes were all positive for metastatic non-small cell carcinoma. On further pathologic analysis the tumor was felt to be most consistent with poorly differentiated adenocarcinoma, most likely of lung origin. The tumor cells were positive for TTF-1, Napsin, CK-Navdeep, and CK7. The breast markers, including GCDFP and BCA 225 were negative. A next generation sequencing study was requested but was not able to be done because the biopsy sample was insufficient. Because she is a nonsmoker, I recommended getting another biopsy to obtain additional tissue for analysis. She underwent ultrasound directed needle biopsy of a left cervical lymph node on 09/04/2019. Pathology showed metastatic carcinoma consistent with lung primary. A next generation sequencing study has been in process. Only partial results have been reported. She is seen for a followup visit. She has been feeling progressively worse with weakness and shortness of breath. She is beginning to lose her voice. Her appetite has been poor, but her weight is up a little. She has no fever or night sweats. She has having some cough. She does not complain of chest pain. She has been having nausea and acid reflux, and she also has been having constipation. She has some hesitancy with urination. She has having pain in her back at times. She does not complain of headache. She has some numbness in her toes. She has no other focal neurologic symptoms. Medications: Acetaminophen Extra Strength 2 Tablet (of 500 mg) Oral every am, Calcium + D 1 Tablet (of 500-400 mg - Units) Oral daily, Escitalopram Oxalate 1 Tablet (of 20 mg) Oral daily, Multivitamin Adult 1 Tablet Oral daily Allergies: Codeine Sulfate Review of Systems: Constitutional - She has very limited activity. Appetite is poor. Weight is up a little. No fever, night sweats, or hot flashes. ECOG score is 3, ENMT - She has some sinus drainage. No mouth sores. No sore throat or difficulty swallowing. She is starting to lose her voice, Hematologic/Lymphatic - No abnormal bruising or bleeding, Respiratory - She has shortness of breath and cough. No pleuritic pain or hemoptysis, Cardiovascular - No angina pain. No palpitations, Gastrointestinal - She has kelly having nausea and acid reflux. She has constipation. No blood in the stool or black stools, Genitourinary (F) - She has some hesitancy with urination. No dysuria or hematuria. No urinary frequency. No urgency or incontinence, Musculoskeletal - She sometimes has back pain, Integumentary - No skin rash, Neurologic - No headache or dizziness. She has numbness in her toes. No other focal neurologic symptoms, Psychiatric - She has some depression. She has difficulty sleeping. Vital Signs: Performed on Oct 05, 2019 11:35 Height - 63.00 in Weight - 147.8 lbs (HIGH) BSA - 1.70 sq.m BMI - 26.18 Temperature - 98.2 F (LOW) Pulse - 100 /min Respiration - 24 /min BP - 134/80 mm(hg) O2 Sat - 93 % (LOW) Pain - 0 Physical Examination: Constitutional - She appears generally weak, Eyes - Sclerae nonicteric. Conjunctivae clear, ENMT - No lesions noted in the oral cavity, Hematologic/Lymphatic - No cervical, clavicular, or axillary adenopathy noted, Respiratory - Lungs show markedly diminished air movement on the left, Cardiovascular - Heart rhythm is regular. There is no murmur, gallop, or rub noted, Abdomen - Soft and non-tender. Liver and spleen are not enlarged. There is no abdominal mass or ascites noted and there is no inguinal adenopathy, Extremities - No edema, Neurologic - No focal neurologic deficits noted. Impression: 1. 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 There was biopsy proven mediastinal lymph node involvement. By PET/CT, her disease appeared to be stage IIIB (T1c, N3, M0). 2. She has remote history of left breast cancer for which she underwent lumpectomy/radiation, adjuvant chemotherapy, and adjuvant hormonal therapy. Her other medical illnesses include: 3. She has a history of Graves' disease, treated medically. 4. She has a history of parathyroidectomy for parathyroid dysfunction, I assume hyperparathyroidism. 5. Osteoporosis. 6. Anxiety/depression. She underwent ultrasound directed needle biopsy of a left cervical lymph node on 09/04/2019. Pathology showed metastatic carcinoma consistent with lung primary. A next generation sequencing study has been in process. As yet only partial reports have been reported. In the meantime, her symptoms have worsened significantly. Plan: She is being scheduled for outpatient thoracentesis. She is being scheduled for repeat chest CT today. She will be started on home oxygen, as her saturation dropped to 88% with activity. She will start dexamethasone 4 mg bid along with Protonix 40 mg daily. She is to stop meloxicam. She will be scheduled for brain MRI. Signed By: Parth Pedersen M.D. <<Signature on File>>
== END 2019-10-05 11:30 | disposition home or self-care (01) ==
PROVIDERS: PCP Family Medicine; Visit Provider Internal Medicine Medical Oncology
DX: C34.12 Malignant neoplasm of upper lobe, left bronchus or lung (principal); C77.8 Secondary and unspecified malignant neoplasm of lymph nodes of multiple regions; K21.9 Gastro-esophageal reflux disease without esophagitis; E89.2 Postprocedural hypoparathyroidism; M81.0 Age-related osteoporosis without current pathological fracture; F41.8 Other specified anxiety disorders; Z85.3 Personal history of malignant neoplasm of breast; Z86.39 Personal history of other endocrine, nutritional and metabolic disease; Z99.81 Dependence on supplemental oxygen
CPT/HCPCS: 36415; 71260; 80053; 85025; 99214; Q9967

== ENCOUNTER 2019-10-06 10:44 | Emergency (ER) | payer MEDICARE, OTHER, SELFPAY ==
[2019-10-06] VITALS (13 sets, daily range): BP systolic 94–121; BP diastolic 59–82; PULSE 64–112; RESP 18–22; TEMP 36.6; O2SAT 92–96; BMI 26.2
--- NOTE | 2019-10-06 | XR_ITS ---
October 06, 2019 3:32 PM PROCEDURE: CHEST 1 VIEW COMPARISON: CHEST X-RAY EARLIER TODAY FINDINGS: Status post LEFT thoracentesis. Significant improvement in the pleural effusion from earlier today. Small residual left pleural effusion. Improved aeration left lung. No pneumothorax. Small right pleural effusion is unchanged. MTDD
--- NOTE | 2019-10-06 11:00 | XRR_ITS ---
PROCEDURE INFORMATION: Exam: XR Chest, 1 View Exam date and time: 10/06/2019 11:01 AM Age: 79 years old Clinical indication: Shortness of breath; Additional info: Dyspnea TECHNIQUE: Imaging protocol: XR of the chest Views: 1 view. COMPARISON: CT chest w con* [id number] 10/05/2019 1:50:38 PM FINDINGS: Lungs: Extensive airspace disease in the left lingula, left lower lobe, and inferior left upper lobe. Findings are stable and may represent compressive atelectasis, underlying pneumonia is not ruled out. Pleural space: Stable small right right and large left left pleural effusions. Heart/Mediastinum: The left border of the cardiac silhouette is obscured by pleural fluid and airspace disease. Size of the cardiac silhouette cannot be determined. Vasculature: Vascular calcifications in the aorta. Bones/joints: Unremarkable for age. Soft tissues: Surgical clips in the left chest wall and left axilla. XR/XR chest 1V portable [id number] IMPRESSION: 1. Stable small right right and large left left pleural effusions. 2. Extensive airspace disease in the left lingula, left lower lobe, and inferior left upper lobe. Findings are stable and may represent compressive atelectasis, underlying pneumonia is not ruled out. Recommend followup chest x-ray to ensure resolution. 3. Incidental/nonacute findings are listed in the report.
--- NOTE | 2019-10-06 11:00 | ECG_ITS ---
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 Measurements Intervals United Rate: 105 P: 44 MI: 139 QRS: 21 QRSD: 90 T: 29 QT: 338 QTc: 447 Interpretive Statements SINUS TACHYCARDIA ABNORMAL RHYTHM ECG No previous ECG available for comparison Electronically Signed On 10-06-2019 13:09:23 CDT by Conrad Rosen M.D. [id number]
[2019-10-06] MEDS: ondansetron 2 mg/ML SDV 2 mL 4 MG IVP (11:26)
--- NOTE | 2019-10-06 11:30 | PC.NURSE ---
XR at bedside.
[2019-10-06 11:40] LABS: Basophils % 0.2 %; Eosinophils % 0.1 %; Hematocrit 45.2 % (37.0-47.0); Hemoglobin 14.8 g/dL (11.5-15.3); Lymphocytes # 1.2 10^3/uL (0.8-4.8); Lymphocytes % 9.1 %; Mean Corpuscular HGB Conc 32.7 g/dL (30.0-36.0); Mean Corpuscular Hemoglobin 30.1 pg (28.0-34.0); Mean Corpuscular Volume 92.1 fL (81-99); Mean Platelet Volume 8.4 fL (7.4-10.4); Monocytes # 1.4 10^3/uL (0.2-0.9); Monocytes % 10.6 %; Neutrophils # 10.3 10^3/uL (1.8-7.7); Neutrophils % 79.6 %; Nucleated Red Blood Cells % 0 %; Platelet Count 354 10^3/cmm (130-400); Red Blood Count 4.91 10^6/uL (4.1-5.3); Red Cell Distribution Width 12.2 % (12.1-15.1); White Blood Count 12.9 10^3/uL (4.0-10.0)
[2019-10-06 11:49] LABS: INR 1.02 (0.8-1.2)
--- NOTE | 2019-10-06 11:57 | W.ED.GENADLT ---
HPI - General Adult General: Chief complaint: General Medical Stated complaint: FLUID AROUND HEART AND LUNGS/CA PT Time Seen by Provider: 10/06/19 10:58 History of Present Illness: HPI narrative: This patient is a 79-year-old female presenting today with shortness of breath. She has had symptoms for several months but has become acutely worse in the past week. She saw Dr. Pedersen for this and had a CT scan of her chest done yesterday. This showed recurrence of a large left pleural effusion as well as some right pleural effusion and pericardial effusion. Dr. Pedersen called her and told her to come to the ER to have it drained and hopefully have a drain placed which will remain there. She has had it drained twice already in the past month or 2, most recently just a week or 2 ago. She has not had any fever. She has had a chronic cough but her daughter noticed that she has not been coughing at all since last night. She has discomfort in her chest which she relates to the fluid in the effort of breathing. She also has very severe nausea. She notes that she gets nauseous easily with medications and illness. She was diagnosed with lung cancer in July and at that time had a biopsy. She says they are still waiting for some testing to come back to determine the best course of treatment. She has not started chemotherapy or radiation. MD complaint: Shortness of breath Onset (ago): month(s) Location: chest Associated symptoms: Reports chest pain, cough, decreased appetite, dyspnea, malaise, nausea and vomiting; Deny headache(s) or rash Review of Systems General: Reports: 10 or more systems reviewed and unremarkable except in HPI and below Const: Reports: fatigue and malaise; Denies: fever(s) or chills Eyes: Denies: change in vision ENMT: Denies: odynophagia Card: Reports: chest pain, dyspnea on exertion and orthopnea; Denies: swelling of feet/ankles Resp: Reports: dyspnea and non-productive cough GI: Reports: nausea and vomiting : Denies: flank pain or difficulty voiding Musc: Denies: neck pain or back pain Skin/Breast: Denies: rash Neuro: Denies: headache(s), numbness in extremities or weakness in extremities Jeff/Lymph: Denies: easy bruising or easy bleeding PFS ED PFSH: Medical History Breast cancer Breast - Ductal carcinoma Left breast in 2003. Lumpectomy and chemotherapy done in [facility]. she states that she follows up with the oncology department in [facility]. Depression Labial abscess - Anticipated performing a vulvar biopsy, that after the local was injected and purulent drainage returned the procedure was transitioned to an I&D. small amount of pus noted; flushed til clear Still uncertain if abscess versus mass Start clindamycin oral x 10 days Warm water soaks several times/day Vegetable shortening for skin barrier due to incontinence If no improvement after abx, needs biopsy Return in 3 weeks if needed Parathyroid dysfunction Patient denies medical problems Patient denies any past medical history of hypertension, diabetes, heart, lung, liver, kidney, bleeding, or clotting problems. Surgical History History of dilation and curettage Done for heavy bleeding in 1965 History of loop electrical excision procedure (LEEP) Done for an abnormal Pap smear in 1999. She states that all Pap smears since then have been normal. History of lumpectomy of left breast Left breast cancer 2003. She states that she had lymph node removal a month after this procedure. History of parathyroidectomy Done in the Family History Mother Diabetes Thyroid condition Brother Diabetes Father Heart disease Family/Other Patient denies medical problems Patient denies any family history of hypertension, stroke, hypercholesterolemia, breast cancer, ovarian cancer, uterine cancer, colon cancer. Social History Smoking and tobacco status: never smoked Alcohol intake: never Lives independently: Yes Household members: none Marital status: / Current occupational status: retired History of recent travel: No Current gender identity: Female Physical Exam Const: COMMON NORMALS: no acute distress, patient oriented x3, no limitations and alert GENERAL APPEARANCE: cooperative and comfortable HENMT: HEAD & SCALP: normal to inspection FACE & SINUS: normal facial exam Eye: GENERAL EYE: appearance normal, both eyes and all related structures Neck/C-Spine: COMMON NORMALS: supple, no meningeal signs and no JVD Chest: COMMONS NORMALS: normal inspection of the chest Resp: COMMON NORMALS: normal respiratory effort and No use of accessory muscles AUSCULTATION: diminished lung sounds on the left Cardio: COMMON NORMALS: no JVD, regular rate, regular rhythm and No murmurs present (Cardio) RATE: regular rate RHYTHM: regular rhythm GI: COMMON NORMALS: Normal to inspection, nondistended, normoactive bowel sounds present, Soft to palpation and non-tender INSPECTION: Yes normal to inspection AUSCULTATION: Yes normoactive bowel sounds PALPATION: Yes Soft to palpation Back/Pelvis: COMMON NORMALS: thoracic and lumbar spine normal to inspection Extremity: COMMON NORMALS: normal to inspection Neuro: COMMON NORMALS: patient oriented x3, moves all extremities, no focal motor deficits and no sensory deficits noted SENSORIUM/ORIENTATION: Yes alert MENINGEAL SIGNS: Yes no meningeal signs Psych: COMMON NORMALS: mental status grossly normal, cooperative and normal affect Skin: COMMON NORMALS: no rashes or lesions noted and turgor normal GENERAL SKIN EXAM: no rashes or lesions noted and turgor normal Course ED course: Patient with a large left pleural effusion as well as a pericardial effusion. I spoke with Dr. Pedersen and he requested an echo to be done stat. This was done and did show the pericardial fluid but no evidence of Littcarr nod or any functional issues. We were not able to get a [place] drain placed today but we did have a ultrasound-guided thoracentesis done by radiology. The patient understands that she needs to call Dr. Pedersen on Tuesday to arrange for further management of this effusion. She did feel better after the procedure and will be discharged home. Dr. Pedersen had also put in an order for oxygen and her daughter reported that they had not been able to set that up yet. We contacted home which did have the order and they were able to bring it to her in the ED. Consultations: Consultation #1: Dr. Shelby, radiology. He said interventional radiology is not able to place a [place] drain. Vital Signs: Vital signs: Vital Signs Temperature 97.9 F 10/06/19 11:00 Pulse Rate 96 10/06/19 17:06 Respiratory Rate 20 H 10/06/19 17:06 Blood Pressure 94/72 10/06/19 17:06 Pulse Oximetry 95 10/06/19 17:06 [facility] - General Adult Lab Data: Labs: Lab Results 10/06/19 10/06/19 10/06/19 Range/Units 11:21 11:21 11:21 WBC 12.9 H (4.0-10.0) 10^3/ uL RBC 4.91 (4.1-5.3) 10^6/u L Hgb 14.8 (11.5-15.3) g/dL Hct 45.2 (37.0-47.0) % MCV 92.1 (81-99) fL MCH 30.1 (28.0-34.0) pg MCHC 32.7 (30.0-36.0) g/dL RDW 12.2 (12.1-15.1) % Plt Count 354 (130-400) 10^3/c mm MPV 8.4 (7.4-10.4) fL Neut % (Auto) 79.6 % Lymph % (Auto) 9.1 % Citrus % (Auto) 10.6 % Eos % (Auto) 0.1 % Baso % (Auto) 0.2 % Neut # (Auto) 10.3 H (1.8-7.7) 10^3/u L Lymph # (Auto) 1.2 (0.8-4.8) 10^3/u L Citrus # (Auto) 1.4 H (0.2-0.9) 10^3/u L Eos # (Auto) 0.0 (0.0-0.8) 10^3/u L Baso # (Auto) 0.0 (0.0-0.1) 10^3/u L Nucleated RBC % (a uto) 0 % Nucleated RBCs # 0.0 /100WBC PT 13.70 H (10.5-13.3) SECO NDS INR 1.02 (0.8-1.2) Sodium 138 (136-145) mmol/L Potassium 4.1 (3.5-5.1) mmol/L Chloride 98 (98-107) mmol/L Carbon Dioxide 24 (22-29) mmol/L Anion Gap 20.1 H (5-19) BUN 12 (8-23) mg/dL Creatinine 0.6 (0.5-0.9) mg/dL Glucose 99 (65-115) mg/dL Calculated Osmolal ity 282 L (285-295) mOsm/k g Calcium 10.1 (8.5-10.5) mg/dL Total Bilirubin 0.4 (0.15-1.2) mg/dL AST 33 H (0-32) U/L ALT 32 (0-33) U/L Alkaline Phosphata se 76 (35-105) IU/L NT-Pro-B Natriuret Pep 239 (0-450) pg/mL Total Protein 7.4 (6.6-8.7) g/dL Albumin 4.1 (3.5-5.2) g/dL Globulin 3.3 (1.3-4.6) g/dL Discharge Plan Discharge Patient Disposition: Home, Self-Care Clinical Impression: Pleural effusion, Acute pericardial effusion Condition: Stable Prescriptions: No Action escitalopram oxalate 20 mg tablet 20 mg PO DAILY RF: 0 multivitamin Capsule 1 cap PO QAM RF: 0 calcium carbonate-vitamin D3 [Calcium 500 + D] 500 mg(1,250mg) -400 unit tablet,chewable 1 tab PO DAILY RF: 0 Tylenol Extra Strength 500 mg Tablet 1,000 mg PO PRN RF: 0 Protonix 40 mg Tablet,Delayed Release (Dr/Ec) 40 mg PO DAILY RF: 0 dexamethasone 4 mg Tablet 4 mg PO BID RF: 0 Discharge Orders: Discharge Order (Routine); Ordered 10/06/19 Ordered By: Eli Lazo Referrals: Parth Pedersen MD [Hospitalist] - 1-3 days Eliecer Rodriguez MD [Primary Care Provider] - Discharge Diet: Usual diet Discharge Activity: Resume usual activity Patient Instructions: Pleural Effusion (ED) Activity Restrictions/Additional Instructions: Rest. Use the oxygen as directed. Return to the ED if fever, worsening symptoms, shortness of breath, chest pain. Follow-up with Dr. Pedersen on Tuesday for further management. 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
[2019-10-06 12:04] LABS: Alanine Aminotransferase 32 U/L (0-33); Albumin Level 4.1 g/dL (3.5-5.2); Alkaline Phosphatase 76 IU/L (35-105); Anion Gap 20.1 (5-19); Aspartate Amino Transferase 33 U/L (0-32); Blood Urea Nitrogen 12 mg/dL (8-23); Calcium 10.1 mg/dL (8.5-10.5); Carbon Dioxide 24 mmol/L (22-29); Chloride 98 mmol/L (98-107); Globulin 3.3 g/dL (1.3-4.6); Glucose 99 mg/dL (65-115); NT Pro B Type Natriuretic Pept 239 pg/mL (0-450); Osmolality Calculated 282 mOsm/kg (285-295); Potassium 4.1 mmol/L (3.5-5.1); Sodium 138 mmol/L (136-145); Total Bilirubin 0.4 mg/dL (0.15-1.2); Total Protein 7.4 g/dL (6.6-8.7)
[2019-10-06] MEDS: metoclopramide 5 mg/mL SDV 2 mL IVP (12:29)
--- NOTE | 2019-10-06 12:34 | USCV_ITS ---
Melony Chu Age: 79 Gender: F : 1940 Exam Date: 10/06/2019 12:37 Ordering Phys: Eli Lazo MD Technologist: Jessica Fraga [place] [facility] [place]: Pericardial [place] BP: 111 / 72 HR: 97 Rhythm: Sinus Technical Quality: Fair MEASUREMENTS (Male / Female) Normal Values 2D ECHO LV Diastolic Diameter PLAX 3.2 cm 4.2 - 5.9 / 3.9 - 5.3 cm LV Systolic Diameter PLAX 1.9 cm LV Chamber Size 3.6 cm IVS Diastolic Thickness 1.2 cm 0.6 - 1.0 / 0.6 - 0.9 cm IVS Systolic Thickness 1.3 cm LVPW Diastolic Thickness 0.6 cm 0.6 - 1.0 / 0.6 - 0.9 cm LVPW Systolic Thickness 0.9 cm RV Chamber Size 2.1 cm LVOT Diameter 1.7 cm LV Ejection Fraction 2D Teich 72.6 % LA Diameter 2.1 cm LA Width 1.7 cm LA Height 4.8 cm RA Width 2.6 cm RA Height 3.8 cm Aorta at Sinotubular Diameter 2.2 cm M-MODE LV Diastolic Diameter MM 5.3 cm 4.2 - 5.9 / 3.9 - 5.3 cm LV Systolic Diameter MM 3.7 cm LV Ejection Fraction MM Teich 57.8 % IVS Diastolic Thickness MM 1.1 cm 0.6 - 1.0 / 0.6 - 0.9 cm IVS Systolic Thickness MM 1.3 cm LVPW Diastolic Thickness MM 0.9 cm 0.6 - 1.0 / 0.6 - 0.9 cm LVPW Systolic Thickness MM 1.2 cm Aortic Annulus Diameter 3.2 cm LA Ao Ratio MM 0.7 MV E Point Septal Separation 0.9 cm DOPPLER AV Peak Velocity 160.0 cm/s LVOT Peak Velocity 120.0 cm/s AV Area Cont Eq vti 1.7 cm squared AV Area Cont Eq pk 1.7 cm squared MV Area PHT 3.5 cm squared Mitral E to A Ratio 1.0 MV E' Velocity 11.0 cm/s Mitral E to MV E' Ratio 6.8 Mitral E to LV E' Lateral Ratio 6.7 Mitral E to LV E' Septal Ratio 6.9 TR Peak Velocity 267.0 cm/s TR Peak Gradient 28.5 mmHg TR Mean Velocity 214.6 cm/s TR Mean Gradient 19.7 mmHg TR Velocity Time Integral 69.7 cm TV Peak E Velocity 37.0 cm/s Right Atrial Pressure 15.0 mmHg Pulmonary Artery Systolic Pressu 43.5 mmHg PV Peak Velocity 50.0 cm/s RV Acceleration Time 0.1 s RV Ejection Time 0.2 s RV AcT/ET 0.3 FINDINGS Left Ventricle Normal left ventricular cavity size. Mild left ventricular hypertrophy. Normal left ventricular systolic function. No regional wall motion abnormalities. Left ventricular ejection fraction is estimated at 60%. Right Ventricle Normal right ventricular size and systolic function. Mild pulmonary hypertension, RVSP 43.5 mmHg. Right Atrium Normal right atrial size. Increased right atrial pressure 10 to 15 mmHg Left Atrium Normal left atrial size. Mitral Valve Structurally normal mitral valve. Aortic Valve Thickened aortic valve. Mild aortic valve stenosis, mean gradient 5.7 mmHg, NEEL 1.7 cm squared. No aortic valve regurgitation. Tricuspid Valve Structurally normal tricuspid valve. Pulmonic Valve Pulmonic valve not well visualized. Pericardium There are large bilateral pleural effusions left greater than right. There is a very small pericardial effusion which is NOT hemodynamically significant. The appearance of the pleural effusions with a small associated pericardial effusion has the appearance of a malignant effusion. If this patient has a known malignancy in the chest or a malignancy elsewhere which could metastasize to the chest these effusions are almost certainly malignant. If there is no known malignancy one should be searched for. If this patient is short of breath a thoracentesis should be performed. Aorta Normal size aortic root and proximal ascending aorta. CONCLUSIONS Normal left ventricular cavity size. Mild left ventricular hypertrophy. Normal left ventricular systolic function. No regional wall motion abnormalities. Left ventricular ejection fraction is estimated at 60%. Normal right ventricular size and systolic function. Mild pulmonary hypertension, RVSP 43.5 mmHg. Normal right atrial size. Increased right atrial pressure 10 to 15 mmHg. Thickened aortic valve. Mild aortic valve stenosis, mean gradient 5.7 mmHg, NEEL 1.7 cm squared. No aortic valve regurgitation. There are large bilateral pleural effusions left greater than right. There is a very small pericardial effusion which is NOT hemodynamically significant. The appearance of the pleural effusions with a small associated pericardial effusion has the appearance of a malignant effusion. If this patient has a known malignancy in the chest or a malignancy elsewhere which could metastasize to the chest these effusions are almost certainly malignant. If there is no known malignancy one should be searched for. If this patient is short of breath a thoracentesis should be performed. There are no prior echocardiogram studies to compare. Dr. Conrad Rosen MD (Electronically Signed) Final Date: 06 October 2019 14:08 S
--- NOTE | 2019-10-06 13:21 | PC.NURSE ---
ECHO performed at bedside
--- NOTE | 2019-10-06 13:31 | PC.NURSE ---
Changed telemetry leads d/t continued problems with reading cardiac rhythm. Pt states she is still nauseated not worse than it was, but definitely not better . Requested a scopalomine patch from Dr Lazo. Pt with call light in reach and no other needs at this time. Daughter at bedside.
[2019-10-06] MEDS: scopolamine 1.5 Patch 1 PATCH TRANSDERMA (13:42)
--- NOTE | 2019-10-06 15:03 | US_ITS ---
WS: [id number] ULTRASOUND-GUIDED THORACENTESIS CLINICAL INFORMATION: large left pleural effusion COMPARISON: None. PROCEDURE: Informed consent: The risks, benefits, and alternatives of the procedure were discussed with the yumiko ent. Verbal and written consent was obtained. Timeout: A timeout was performed to confirm the correct patient, procedure, and site. Site: Left Preparation: A suitable skin site was identified. The patient was prepped and draped in usual sterile fashion. Lidocaine 1% was used for local anesthesia. Catheter: 4 Japanese One-Step catheter. Fluid Volume: 1200 ml Color: Cloudy amanda Discarded safely. Complications: None. Portable chest is pending US/ thoracentesis [id number] IMPRESSION: Uncomplicated ultrasound-guided LEFT thoracentesis. Removal of 1200 cc cloudy a mber fluid
[2019-10-06] MEDS: midazolam 1 mg/mL INJ 2 mL 2 MG IVP (15:14)
[2019-10-06] MEDS: fentaNYL 50 mcg/mL INJ 2mL 25 MCG IVP (15:15)
--- NOTE | 2019-10-06 15:19 | PC.NURSE ---
US at bedside to perform thoracentesis. Pt signed surgical permit, pre-medicated per dr order.
[2019-10-06] MEDS: acetaminophen 325 mg Tablet 650 MG PO (15:50)
--- NOTE | 2019-10-06 16:42 | PC.NURSE ---
Discharge pending on delivery of portable home oxygen for pt.
== END 2019-10-06 17:24 | disposition home or self-care (01) ==
PROVIDERS: Emergency Provider Emergency Medicine; PCP Family Medicine
DX: J90 Pleural effusion, not elsewhere classified (principal); I30.9 Acute pericarditis, unspecified; Z85.3 Personal history of malignant neoplasm of breast; I70.0 Atherosclerosis of aorta
CPT/HCPCS: 12345; 32555; 71045; 80053; 83880; 85025; 85610; 93005; 93306; 96374; 96375; 99284; J2250; J2405; J2765; J3010

== ENCOUNTER 2019-10-08 11:09 | Outpatient (CLI) | payer MEDICARE, OTHER, SELFPAY ==
--- NOTE | 2019-10-08 11:16 | MR_ITS ---
WS: [id number] MRI BRAIN WITH AND WITHOUT CONTRAST HISTORY: LUNG CANCER COMPARISON: None available. TECHNIQUE: Multiplanar imaging performed through the brain with Prohance 15 ml's IV. No acute infarcts are seen. Flores-white matter differentiation is well preserved. Numerous scattered T 2 and FLAIR signal hyperintensities appropriate for the patient's age. No mass effect or midline shif t. Prior lacunar infarct RIGHT caudate head. No prior hemorrhage. Ventricles and extra-axial spaces are normal. Clivus and pituitary gland are normal. Visualized posterior fossa and brainstem are also normal. Postcontrast images are negative for masses or vascular malformations. Dural venous sinuses are normal. Paranasal sinuses: Well aerated with no significant disease. Mastoid air cells: Normal. Calvarium and scalp: Normal. MR/MR head wo/w con [id number] IMPRESSION: 1. No evidence for metastatic disease to the brain. 2. Mild chronic microvascular ischemic disease.
== END 2019-10-08 11:10 | disposition home or self-care (01) ==
LOC: RADWPI 11:13
PROVIDERS: Family Provider Family Medicine; PCP Family Medicine; Visit Provider Internal Medicine Medical Oncology
DX: C34.90 Malignant neoplasm of unspecified part of unspecified bronchus or lung (principal)
CPT/HCPCS: 70553; A9579

== ENCOUNTER 2019-10-15 08:07 | Day surgery (SDC) | payer MEDICARE, OTHER, SELFPAY ==
[2019-10-11 10:10] VITALS: BMI 25.7
--- NOTE | 2019-10-11 10:45 | SUR.PREOP ---
Patient presented in ER on 10/06/19. patient had a cmp, cbc, and pt/inr completed. Verified with dr davenport these results are acceptable to not redraw labs before surgery. Patient made aware to not take aspirin containing products until after procedure.
--- NOTE | 2019-10-11 10:49 | ANES.PREANE2 ---
Pre-Anesthetic Assessment Pre-Anesthetic Assessment: Height/Weight: Height 1.6 m Weight 65.771 kg Preop Diagnosis: Possible lung malignancy Proposed Procedure: Operation Date: 10/15/19 09:20 Proposed Procedures p Portacath Insertion(Not Applicable) - Sandoval Hill MD s Ida Pleaural Catheter Insertion(Not Applicable) - Sandoval Hill MD Familial anesthetic complications: PONV even with TIVA (colonoscopy, cataract surgery) - per patient, Dr. Almeida's interventions for lung biopsy in july prevented the PONV. Social: Social History: No alcohol and No tobacco Exam: Pre-Anes Outpt Exam: alert, oriented x 3, clear to auscultation bilaterally and regular rate & rhythm Airway: Cervical ROM: WNL MP: 2 Dentition: Other (plate) Pulmonary: Comments: lung cancer 2 L NC constantly mediastinal lymphadenopathy CV/HEM: CV/HEM: None reported Comments: hx pericardial effusion : : None reported Hepatic: Hepatic: None reported GI: GI: GERD Metabolic: Metabolic: Thyroid Comments: parathyroid removed Musc/skel: Musc/skel: None reported Neuropsych: Neuropsych: None reported Anesthetic Plan: ASA status: 4 Anesthesia: MAC Risk of > 500 ml blood loss (7ml/kg in children): No Other Pertinent Information: Scopolamine patch and multimodal PONV prophylaxis, TIVA PFSH Anesthesia PFSH: Medical History Breast cancer Breast - Ductal carcinoma Left breast in 2003. Lumpectomy and chemotherapy done in [facility]. she states that she follows up with the oncology department in [facility]. Depression Labial abscess - Anticipated performing a vulvar biopsy, that after the local was injected and purulent drainage returned the procedure was transitioned to an I&D. small amount of pus noted; flushed til clear Still uncertain if abscess versus mass Start clindamycin oral x 10 days Warm water soaks several times/day Vegetable shortening for skin barrier due to incontinence If no improvement after abx, needs biopsy Return in 3 weeks if needed Parathyroid dysfunction Patient denies medical problems Patient denies any past medical history of hypertension, diabetes, heart, lung, liver, kidney, bleeding, or clotting problems. Surgical History History of dilation and curettage Done for heavy bleeding in 1965 History of loop electrical excision procedure (LEEP) Done for an abnormal Pap smear in 1999. She states that all Pap smears since then have been normal. History of lumpectomy of left breast Left breast cancer 2003. She states that she had lymph node removal a month after this procedure. History of parathyroidectomy Done in the Family History Mother Diabetes Thyroid condition Brother Diabetes Father Heart disease Family/Other Patient denies medical problems Patient denies any family history of hypertension, stroke, hypercholesterolemia, breast cancer, ovarian cancer, uterine cancer, colon cancer. Social History Smoking and tobacco status: never smoked Alcohol intake: never Lives independently: Yes Household members: none Marital status: / Current occupational status: retired History of recent travel: No Current gender identity: Female Data Anesthesia Cardiac Studies: No Data to Display
[2019-10-11 13:19] LABS: Add Urine Microscopic? NO
[2019-10-11 13:57] LABS: Bilirubin Urine Neg (NEGATIVE); Blood Urine Neg (Negative); Glucose Urine UA Norm (Normal); Ketones Urine Negative (Negative); Leukocyte Esterase Urine Negative (Negative); Nitrate Urine Negative (Negative); Protein Urine Neg (Negative); Specific Gravity, Urine 1.005 (1.005-1.030); Urine Appearance Clear (CLEAR); Urine Color Yellow (Yellow); Urobilinogen Urine Norm (Negative); pH Urine 7 (5-7)
--- NOTE | 2019-10-15 | SCC_ITS ---
Procedure Done: 1. Left tunneled pleural drain placement 2. Left subclavian Port-A-Cath placement 36.5 seconds of fluoroscopic guidance, for a cumulative dose of 4.24 mGy, was provided to Dr. Hill by the radiology department. C-arm images of the chest were saved for the patient's permanent record. [facility]
--- NOTE | 2019-10-15 | SC_ITS ---
WS: [id number] C-ARM RADIOGRAPHS THORAX; 3 IMAGES HISTORY: OR PICS COMPARISON: 10/15/2019 Intraoperative placement of a [place] drain within the LEFT lower thorax. Intraoperative placement of Port-A-Cath through the LEFT subclavian vein. SC/C-arm [place] CVA [id number] IMPRESSION: Intraoperative placement of LEFT subclavian Port-A-Cath and a LEFT [place] drain .
--- NOTE | 2019-10-15 07:19 | XRR_ITS ---
PROCEDURE INFORMATION: Exam: XR Chest, 1 View Exam date and time: 10/15/2019 9:15 AM Age: 79 years old Clinical indication: Other: Recurrent left pleural effusion TECHNIQUE: Imaging protocol: XR of the chest Views: 1 view. COMPARISON: CR (CHEST, ) 10/06/2019 11:24 AM FINDINGS: Lungs: moderate left pleural effusion with left basilar consolidation versus atelectasis. Calcified granuloma right mid lung Surgical clips project over the region of the left lung base Pleural space: Small subpulmonic effusion on the right Heart/Mediastinum: Unremarkable. No cardiomegaly. Bones/joints: Unremarkable. XR/XR chest 1V portable [id number] IMPRESSION: Moderate left pleural effusion with left basilar consolidation versus atelectasis.
[2019-10-15 08:26] VITALS: BP 134/94; PULSE 84; RESP 22; TEMP 36.6; O2SAT 90
--- NOTE | 2019-10-15 08:34 | ECG_ITS ---
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 Measurements Intervals [place] Rate: 78 P: 37 [place]: 139 QRS: 24 QRSD: 87 T: 40 QT: 364 QTc: 416 Interpretive Statements SINUS RHYTHM Compared to ECG 10/06/2019 11:27:28 Sinus tachycardia no longer present Electronically Signed On 10-15-2019 21:45:17 CDT by Ricardo Linares M.D. [id number]
[2019-10-15] MEDS: sodium chloride 0.9% 1,000 ML 30 ML IV (08:44)
[2019-10-15 08:46] LABS: Basophils % 0.2 %; Eosinophils % 0.1 %; Hematocrit 51.6 % (37.0-47.0); Hemoglobin 16.7 g/dL (11.5-15.3); Lymphocytes # 1.2 10^3/uL (0.8-4.8); Lymphocytes % 5.5 %; Mean Corpuscular HGB Conc 32.4 g/dL (30.0-36.0); Mean Corpuscular Volume 92.8 fL (81-99); Mean Platelet Volume 8.3 fL (7.4-10.4); Monocytes # 1.7 10^3/uL (0.2-0.9); Monocytes % 8.2 %; Neutrophils # 17.9 10^3/uL (1.8-7.7); Neutrophils % 85.1 %; Nucleated Red Blood Cells % 0 %; Platelet Count 289 10^3/cmm (130-400); Red Blood Count 5.56 10^6/uL (4.1-5.3); Red Cell Distribution Width 12.6 % (12.1-15.1)
[2019-10-15] MEDS: citric acid-sodium citrate 30 mL UDC PO (09:01)
[2019-10-15] MEDS: scopolamine 1.5 Patch 1 PATCH TRANSDERMA (09:02)
[2019-10-15] MEDS: midazolam 1 mg/mL INJ 2 mL 2 MG IVP (09:04)
[2019-10-15 09:16] LABS: Alanine Aminotransferase 60 U/L (0-33); Albumin Level 4.1 g/dL (3.5-5.2); Alkaline Phosphatase 82 IU/L (35-105); Anion Gap 19.1 (5-19); Aspartate Amino Transferase 25 U/L (0-32); Blood Urea Nitrogen 18 mg/dL (8-23); Calcium 9.8 mg/dL (8.5-10.5); Carbon Dioxide 28 mmol/L (22-29); Chloride 96 mmol/L (98-107); Globulin 3.9 g/dL (1.3-4.6); Glucose 117 mg/dL (65-115); Osmolality Calculated 286 mOsm/kg (285-295); Potassium 4.1 mmol/L (3.5-5.1); Sodium 139 mmol/L (136-145); Thyroid Stimulating Hormone 1.51 uIU/mL (0.27-4.20); Total Bilirubin 0.7 mg/dL (0.15-1.2)
--- NOTE | 2019-10-15 09:47 | W.PM.OPSUD ---
Surgery/Procedure H&P Update DATE OF PROCEDURE: October 15, 2019 DATE H&P PERFORMED: 10/09/19 H&P UPDATE INFORMATION: I have reviewed H&P completed within last 30 days, I have examined patient prior to procedure and No changes to prior documentation PREOP DIAGNOSIS: Recurrent left pleural effusion; lung carcinoma PRIMARY INDICATION FOR PROCEDURE: Recurrent right pleural effusion PLANNED PROCEDURE: Operation Date: 10/15/19 09:20 Proposed Procedures p Portacath Insertion(Not Applicable) - aSndoval Hill MD Edgar Pleaural Catheter Insertion(Not Applicable) - Sandoval Hill MD
[2019-10-15] MEDS: heparin, porcine 1,000 unit/mL INJ 10 mL 10000 UNIT IRRIGATION (10:49)
[2019-10-15] MEDS: lidocaine 1% INJ 50 mL INJECTION (10:50)
[2019-10-15 10:54] LABS: Free T4 Free Thyroxine 1.69 ng/dL (0.82-1.77)
[2019-10-15] MEDS: ceFAZolin 1,000 mg SDV 1000 MG IRRIGATION (11:23)
[2019-10-15 11:43] VITALS: BP 113/80; PULSE 95; RESP 20; TEMP 36.4; O2SAT 95
--- NOTE | 2019-10-15 11:44 | PM.OP ---
Operative Report Date of procedure: October 15, 2019 Pre-op Diagnosis: Recurrent left pleural effusion; lung carcinoma Post-op diagnosis: same Procedure Done: 1. Left tunneled pleural drain placement 2. Left subclavian Port-A-Cath placement Specimens removed/disposition: 60 cc of pleural fluid recovered for cytologic examination Surgeon: Sandoval Hill Anesthesia: MAC and Local Complications: None: Post procedure chest x-ray pending Condition: stable Disposition: PACU Brief History: 79-year-old female with a prior history for breast carcinoma status post chemotherapy/XRT. She has been newly diagnosed with stage III lung carcinoma left upper lobe. She has recurrent pleural effusion. Plan further therapy necessitates need for dependable IV access. We will plan for left pleural drain placement for management of this recurrent effusion as well as Port-A-Cath placement. Details the risk of procedure carefully and frankly discussed. Proper consents have been reviewed and signed. Procedure: 1. Left pleural drain placement The entire left chest was sterilely prepped and draped. 1% lidocaine was infiltrated in the posterior axillary line approximately at the seventh interspace level. Introducer needle was then placed with return of amanda-colored pleural fluid. Fluoroscopy was subsequently utilized throughout the procedure for guidewire and dilator advancement and subsequent introducer positioning and [place] catheter drain placement. Lidocaine was utilized to infiltrate the subcutaneous layer continuing anteriorly. A #11 scalpel blade was used to incise the skin on the guidewire and also anteriorly. Tunneler was utilized to pass the drain anteriorly to posteriorly in the subcutaneous fashion. Dilators were then placed over the guidewire to dilate the tract into the pleural space. Dilator and tear away sheath was then placed. Dilator was removed and pleural drain was placed to the tear-away sheath and the tear-away sheath was then removed. Drain was easily aspirated of large volume of pleural fluid of just over 1 L. 60 cc was collected for cytologic examination. Once completed, the incisions were closed with 3-0 Vicryl suture. A silk suture was utilized to secure the drain to the skin. Patient tolerated procedure well. Sterile dressings were applied. #2. Left subclavian Port-A-Cath placement Ms. Chu's entire left chest and neck had been previously sterilely prepped and draped planned left pleural drain placement and Port-A-Cath placement. Left pleural drain has been placed without difficulty. 1% lidocaine was infiltrated for local anesthesia. The patient was then placed in Trendelenburg position. Utilizing modified Seldinger technique, the left subclavian vein was engaged with needle and aspirated blood. A guidewire was then placed into position. Position was confirmed by fluoroscopy. Needle was withdrawn. The patient was then placed in the supine position. A #15 scalpel blade was used to incise the skin at the exit point from the guidewire and continued laterally and inferiorly. Utilizing cautery for meticulous hemostasis, a subcutaneous pocket was then created to allow for placement of the Port-A-Cath reservoir. Antibiotic-soaked sponge was then placed in the subcutaneous pocket. Port-A-Cath tubing was measured to the appropriate length and then cut. It was then connected to the Port-A-Cath reservoir, secured, and the entire system was flushed with heparin solution. The dilator, followed by tear-a-way sheath, were placed over the guidewire. The guidewire and dilator were removed intact. The Port-A-Cath vascular tubing was then placed through the sheath, which was then removed. The entire system was interrogated by fluoroscopy throughout the procedure. Merchant needle was placed through the Port-A-Cath diaphragm, easily aspirated blood, and flushed with heparin lock solution. The Port-A-Cath reservoir was then secured to the floor of the subcutaneous pocket with suture. The pocket was then carefully irrigated with antibiotic solution. Hemostasis was confirmed. The wound was then closed in 2 layers of 3-0 Vicryl suture subcutaneously. The skin was reapproximated carefully in a subcuticular manner with 4-0 Monocryl suture. A sterile dressing was applied followed by a compressive dressing. At the completion of the procedure there are equal breath sounds bilaterally. Vital signs remained stable. Ms. Chu was then transported to PACU. Chest x-ray is pending. I counseled with the family at the completion of the procedure.
--- NOTE | 2019-10-15 11:51 | XRR_ITS ---
PROCEDURE INFORMATION: Exam: XR Chest, 1 View Exam date and time: 10/15/2019 12:21 PM Age: 79 years old Clinical indication: Screening exam; Other screening; Prior surgery; Surgery date: Post-operative (0-2 days); Surgery type: Post jacob drain and port a cath placement; Additional info: Post jesús drain and port a cath placement TECHNIQUE: Imaging protocol: XR of the chest Views: 1 view. COMPARISON: CR XR chest 1V portable [id number] 10/15/2019 9:23 AM FINDINGS: Tubes, catheters and devices: Chest port via the left subclavian approach with the tip overlying the superior vena cava. Thoracotomy tube inferior aspect left hemithorax. Small amount of fluid in the adjacent costophrenic angle. Small amount of subcutaneous emphysema. No pneumothorax. Lungs: Persistent retrocardiac opacity on the left although significantly improved. Pleural space: See Tubes, catheters and devices finding. Heart/Mediastinum: Unremarkable. No cardiomegaly. Bones/joints: Unremarkable. XR/XR chest 1V portable [id number] IMPRESSION: 1. Thoracotomy tube inferior aspect left hemithorax. Small amount of fluid in the adjacent costophrenic angle. Small amount of subcutaneous emphysema. No pneumothorax. 2. Persistent retrocardiac opacity on the left although significantly improved. Mild apical pleural thickening.
[2019-10-15 12:28] VITALS: BP 126/60; PULSE 84; RESP 18; O2SAT 96
--- NOTE | 2019-10-15 13:39 | PC.SOCIAL ---
Home Health Home health order received. Patient d/c from outpatient surgery. I called and spoke with patient's daughter Kayla. She tells me that HH was arranged to come out on Tuesday from [facility].
== END 2019-10-15 13:06 | disposition home health service (06) ==
PROVIDERS: Internal Medicine Medical Oncology; PCP Family Medicine; Visit Provider Thoracic Surgery (Cardiothoracic Vascular Surgery)
PROC: (CPT 32556; principal; 2019-10-15 09:20)
PROC: (CPT 32550; 2019-10-15 09:20)
DX: J90 Pleural effusion, not elsewhere classified (principal); C34.90 Malignant neoplasm of unspecified part of unspecified bronchus or lung; K21.9 Gastro-esophageal reflux disease without esophagitis; Z85.3 Personal history of malignant neoplasm of breast; E07.9 Disorder of thyroid, unspecified
CPT/HCPCS: 32556; 36561; 12345; 36415; 71045; 77001; 80053; 81003; 84439; 84443; 85025; 88112; 88305; 93005; 96365; 96374; C1729; C1788; J0690; J1644; J2001; J2250; J2405; J2704; J7030

== ENCOUNTER 2019-10-16 09:28 | Outpatient (CLI) | payer MEDICARE, OTHER, SELFPAY ==
[2019-10-16] MEDS: LORazepam 2 mg/mL INJ 1 mL IV (10:53)
[2019-10-16] MEDS: pantoprazole 40 mg SDV IV (10:55)
[2019-10-16] MEDS: sodium chloride 0.9% 250 ML 75 ML IV (10:55)
[2019-10-16] MEDS: cyanocobalamin 1,000 mcg/mL SDV 1000 MCG IM (14:20)
--- NOTE | 2019-11-22 13:16 | ONC FU_ITS ---
[facility] Patient Note Patient: Melony Chu Unit #: [id number]: 1940 Dictated By: Fuad JohnsonDate of Visit: Oct 16, 2019 Onc MED Follow-Up/Prog Note Chief Complaint: Lung cancer. 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 Her disease appears to be stage IIIB (T1c, N3, M0). She has a history of having undergone lumpectomy/axillary lymph node sampling and radiation for left breast cancer in 2003. She also was given adjuvant chemotherapy and adjuvant hormonal therapy. She has had no evidence of recurrence of the breast cancer. In June 2019 she sustained an injury to her left chest after falling out of bed at night. Her chest/rib x-rays on 06/20/2019 showed atelectasis at the left lung base with minimal left effusion. There was no evidence for rib fracture. She continued to have pain, and she then had further evaluation with chest CT on 07/09/2019. That study showed a pleural-based pulmonary lesion in the left upper lobe measuring 1.6 x 1.4 x 2.1 cm. There was some soft tissue thickening in the adjacent chest wall. Numerous enlarged lymph nodes were noted in the lower neck, anterior mediastinum, AP window, and hilum bilaterally. This included enlarged paratracheal and enlarged subcarinal lymph nodes. The largest measured 1.3 cm. PET/CT on 07/21/2019 showed FDG avid subpleural nodule in the anterior left upper lobe measuring 1.9 x 1.5 cm, SUV 4.9. This appeared to most likely represent a primary lung carcinoma. A right lower lobe perihilar nodule measuring 2.7 x 1.7 cm was FDG avid with SUV 5.8. FDG positive lymph nodes were noted in the bilateral paratracheal, prevascular, subaortic, subcarinal, and bilateral hilar territories. Malignant nodes were also evident in the neck bilaterally, including bilateral supraclavicular, bilateral level IV, and left level III jugulodigastric territories. There was no evidence of other metastatic disease. She was referred to Dr. Sykes, and on 08/03/2019 she underwent bronchoscopy/EBUS with FNA biopsies of left upper lobe nodule and multiple lymph nodes. The left upper lobe mass biopsy showed non-small cell carcinoma. Biopsies of station 4R, station 7, and station 10R nodes were all positive for metastatic non-small cell carcinoma. On further pathologic analysis the tumor was felt to be most consistent with poorly differentiated adenocarcinoma, most likely of lung origin. The tumor cells were positive for TTF-1, Napsin, CK-Navdeep, and CK7. The breast markers, including GCDFP and BCA 225 were negative. A next generation sequencing study was requested but was not able to be done because the biopsy sample was insufficient. Because she is a nonsmoker, Dr Pedersen recommended getting another biopsy to obtain additional tissue for analysis. She underwent ultrasound directed needle biopsy of a left cervical lymph node on 09/04/2019. Pathology showed metastatic carcinoma consistent with lung primary. A next generation sequencing study has been in process. Only partial results have been reported. 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 Mrs. Chu had additional staging with MRI of the brain on 10/08/2019 which revealed no evidence for metastatic disease; mild chronic microvascular ischemic disease. She underwent Port-A-Cath placement with Dr. Hill with a left subclavian Port-A-Cath she also had placement of a left tunneled pleural drain placement on October 15, 2019. Ms. Chu has been offered treatment with carboplatin Alimta and Keytruda. She is here today for follow-up and began her first cycle of chemotherapy. She denies any new concerns. She states she continues to be short of breath and requires continuous oxygen supplementation. She tolerated the Port-A-Cath and drain insertion well. Her chest wall still sore although she is aware that she has not had time to recover as it was only placed yesterday. She denies any fever or chills. She said no nausea or vomiting. Her appetite is marginal. Her activity level is very marginal at present. She is accompanied by her daughter who seems very supportive and active in her care. Her ECOG is 3. Past Medical History: Anxiety/depression Graves Disease History of parathyroid dysfunction Osteoporosis History of breast cancer in 2003 (Treated: She recieved 6 rounds of Chemotherapy and 33 rounds of radition from Breast Cancer.) Past Surgical History: Bilateral cataract excisions Left Subclavian Port-A-Cath in 2019 Left Tunneled Pleural Drain in 2019 Navigational bronchoscopy with EBUS and biopsies of left lung mass and mediastinal lymph nodes in 2019 Left breast lumpectomy and axillary lymph node sampling in 2003 LEEP procedure in 1999 D & C in [address] Hill ([facility] [place] for port and left tunnel drain placement Allergies: Codeine Sulfate Medications: Acetaminophen Extra Strength 2 Tablet (of 500 mg) Oral every am Dexamethasone 1 Tablet (of 4 mg) Oral b.i.d. Escitalopram Oxalate 1 Tablet (of 20 mg) Oral daily Folic Acid 1 Tablet (of 400 mcg) Oral daily Pantoprazole Sodium 1 Tablet (of 40 mg) Tablet, enteric coated Oral b.i.d. traMADol HCl 1 Tablet (of 50 mg) Oral t.i.d. PRN Family History: Ms. Chu's mother at age 93: DIABETES MELLITUS, and STROKE. Ms. Chu's father at age 76: HEART DISEASE, and MYOCARDIAL INFARCTION. Ms. Chu has 1 brother who is : diabetes mellitus. She has 1 sister who is alive: chronic obstructive pulmonary disease. Father of heart disease at age 76. Mother had diabetes and stroke. She lived age 93. A brother age 73 with complications of diabetes. One sister is still living. She has COPD and history of pulmonary embolism. Her maternal grandmother had some type of [employer]INE[employer] cancer. Social History: Ms. Chu is and she is retired. Ms. Chu has never smoked. She has no history of drinking. 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 She is a non-smoker. She does not drink alcohol. Review Of Symptoms: Constitutional Denies fevers, chills, night sweats. Has generalized weakness but not new and no worse than what it has been over the last few months. Allergic/Immunologic No reactions. Eyes Denies significant visual changes. No diplopia. No amaurosis. ENMT Denies changes in hearing, sore throat, mouth sores, difficulty or changes in swallowing ability, and/or sinus drainage. Hematologic/Lymphatic Denies easy bruising or bleeding. The patient denies any tender or palpable lymph nodes. Respiratory SOB with exertion. Requires continuous oxygen supplementation and a wheelchair for ambulation. Cardiovascular Denies anginal chest pain, palpitations or orthopnea. Gastrointestinal Denies nausea, vomiting, diarrhea, GI bleeding, or constipation. Denies change in bowel habits and/or stool color, no heartburn or early satiety. Genitourinary (F) No hematuria, hesitancy, incontinence, vaginal bleeding, discharge or other problems with urination. Musculoskeletal Denies joint pain, swelling or redness. No decreased range of motion. Integumentary Denies chronic rashes, inflammation, ulcerations or skin changes. Neurologic Denies headache, blurred vision, and no areas of focal weakness or numbness. No sensory problems. Gait not assessed. Psychiatric Denies insomnia, depression, segundo or mood swings. Vital Signs: Performed on Oct 16, 2019 09:48 Height - 63.00 in Temperature - 97.8 F (LOW) Pulse - 85 /min Respiration - 20 /min BP - 102/62 mm(hg) O2 Sat - 92 % (LOW) Pain - 0,3 - Capable of only limited self-care, confined to bed or chair more than 50% of waking hours. (ECOG) Physical Examination: Constitutional Alert, oriented, no acute distress. Skin pale pink warm and dry. Frail in general appearance. Head Normocephalic; atraumatic. Eyes Conjunctivae and sclerae are clear and without icterus. Pupils are reactive and equal. Neck Supple without masses or thyromegaly. No jugular venous distension. Hematologic/Lymphatic No petechiae or purpura. No tender or palpable lymph nodes in the cervical or supraclavicular areas. Respiratory Lungs are clear to auscultation without rhonchi or wheezing. Cardiovascular Regular rate and rhythm of heart without murmurs,clicks, gallops or rubs. Chest Left chest wall venous access device site is bandaged from placement yesterday. Abdomen Non-tender, non-distended, no masses or ascites. Left tunnel drain is also covered with a dressing but no odor, exudate or other abnormalities noted on quick exam. Home health to come tomorrow. Back/Spine Non-tender to palpation. Extremities No visible deformities, no cyanosis, clubbing or edema. Musculoskeletal No tenderness or swelling, normal range of motion with obvious weakness. Integumentary No rashes or lesions. Neurologic No sensory or motor deficits, normal cerebellar function. Psychiatric Alert and oriented times three. Coherent speech. Verbalizes understanding of our discussions today. Laboratory:Test performed on Nov 19, 2019 20:00 TSH 0.87 uU/mL Glucose 127 mg/dL BUN 26 mg/dL Creatinine 0.4 mg/dL Cr Clearance (Est) 106.86 mL/min Sodium 131 mmol/L Potassium 4.0 mmol/L Chloride 97 mmol/L CO2 26 mmol/L Calcium 8.8 mg/dL Protein, Total 5.8 g/dL Albumin 3.6 g/dL Globulin 2.2 g/dL Bilirubin, Total 0.3 mg/dL Alkaline Phosphatase 123 IU/L AST (SGOT) 21 IU/L ALT (SGPT) 61 IU/L WBC 3.3 10^9/L RBC 3.87 10^12/L HGB 11.4 g/dL HCT 34.5 % MCV 89.1 fl MCH 29.5 pg MCHC 33.0 g/dL RDW 13.8 % Platelet Count 55 10^9/L MPV 9.3 fL Neutrophils (Gran) 1.43 10^9/L Lymphocytes 1.2 10^9/L Monocytes 0.3 10^9/L Eosinophils 0.0 10^9/L Basophils 0.0 10^9/L Manual Lymphocytes 36.2 % Manual Monocytes 9.8 % Manual Eosinophils 0.0 % Manual Basophils 0.6 % Test performed on Nov 05, 2019 15:00 PT 13.40 sec INR 0.99 Test performed on Oct 24, 2019 10:48 Anion Gap 13.1 Neutrophil % 87.9 % Lymphocyte % 6.8 % Monocyte % 3.4 % Eosinophil % 0.4 % Basophils % 0.3 % NRBC % 0 % Test performed on Oct 15, 2019 08:40 T4, Free 1.69 ng/dL NRBCs 0.0 /100 WBC Impression: 1. 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 There was biopsy proven mediastinal lymph node involvement. By PET/CT, her disease appeared to be stage IIIB (T1c, N3, M0). 2. She has remote history of left breast cancer for which she underwent lumpectomy/radiation, adjuvant chemotherapy, and adjuvant hormonal therapy. Her other medical illnesses include: 3. She has a history of Graves' disease, treated medically. 4. She has a history of parathyroidectomy for parathyroid dysfunction, ( assumed hyperparathyroidism). 5. Osteoporosis. 6. Anxiety/depression. She underwent ultrasound directed needle biopsy of a left cervical lymph node on 09/04/2019. Pathology showed metastatic carcinoma consistent with lung primary. A next generation sequencing study has been in process. A next generation sequencing study has been in process. Only partial results have been reported. 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 Mrs. Chu had additional staging with MRI of the brain on 10/08/2019 which revealed no evidence for metastatic disease; mild chronic microvascular ischemic disease. She underwent Port-A-Cath placement with Dr. Hill with a left subclavian Port-A-Cath she also had placement of a left tunneled pleural drain placement on October 15, 2019. Ms. Chu has been offered treatment with carboplatin Alimta and Keytruda. Plan: 1. Proceed with cycle 1 carboplatin AUC 5, Alimta and Keytruda. 2. She was premedicated with dexamethasone 4 mg twice daily and Protonix 40 mg daily for gastritis. 3. She has ondansetron 4 mg ODT tablets on hand for intermittent nausea. She is also wearing scopolamine if she states she gets so nauseated so easily. She states whenever the anesthesiologist did yesterday for placement of her port and drain worked well because she did not have near the nausea that she generally does. It is noted that she states she has very scopolamine patch. 4. She is been utilizing senna S for constipation it sounds as if this is working well. She will continue this for now. 5. Labs from October 15, 2019 were reviewed in detail and discussed with Ms. Chu and a copy was given to her. WBC is 21.0, hemoglobin 16.7, platelets are 289,000 ANC 17,900 potassium 4.1 creatinine 0.5 and LFTs are normal with exception of ALT which is a 60. 5. She will return in 1 week for day 8 follow-up with CBC CMP. She instructed to contact us in the interim should questions or problems arise. 6. (My new patient and family teaching) The patient and family were informed of chemotherapy plan and specific drugs were discussed. We also discussed how chemotherapy works and identified common side effects including alopecia; myelosuppression-including neutropenia, anemia, thrombocytopenia; peripheral neuropathy; fatigue; nausea; diarrhea; constipation; bleeding or bruising; skin changes; mouth sores; drug hypersensitivity/allergic reactions or anaphylaxis and extravasation. They have also been informed how to contact the clinic with side effects or symptoms, including but not limited to fever greater than 100.4???, chills, sore throat, bleeding or bruising that is not explained or mouth sores, cough, nasal discharge, diarrhea, constipation, nausea and/or vomiting not relieved with medications on hand at home, as well as any other concern or question they may have. Our hours are 8:00 a.m. to 4:30 p.m. on Tuesday through and 8-12:00 on Tuesday. However, someone is warehouse distribution associate 24 hours per day and they have been advised to contact the [facility] at if it is after hours. We have also discussed potential long-term side effects of chemotherapy including secondary cancers, infertility, pulmonary complications, cardiac complications, and again peripheral neuropathy. We have discussed that they certainly need to let us know before taking any antioxidants or herbal or further dietary supplements, as we are unsure of how these agents react with chemotherapy and we request that they avoid these products for now. They were informed that it is okay to take multivitamins at normal doses. They verbally state that they understand to take all medications as directed by their healthcare provider unless otherwise indicated. They also verbalized understanding to leave the pressure dressing on the intravenous administration site for at least two hours after treatment. Instructions for oral care with baking soda and salt water rinses as well as a guide for use of [id number] medication were provided with the treatment plan. They have been given a written patient treatment plan, of which a copy is in the chart, as well as specific drug information. They have no questions and verbalized understanding and are willing to proceed with chemotherapy at this time. The majority of this visit (40 minutes) was spent in face to face communication with this patient and/or his/her family in regards to plan of care, side effect identification and management. Signed By: Fuad Johnson-, [facility] Parth Pedersen MD <<Signature on File>>
== END 2019-10-16 09:29 | disposition home or self-care (01) ==
LOC: ONCMED 09:30
PROVIDERS: PCP Family Medicine; Visit Provider Nurse Practitioner
DX: Z51.12 Encounter for antineoplastic immunotherapy (principal); Z51.11 Encounter for antineoplastic chemotherapy; C34.12 Malignant neoplasm of upper lobe, left bronchus or lung; F41.9 Anxiety disorder, unspecified; F32.9 Major depressive disorder, single episode, unspecified; M81.0 Age-related osteoporosis without current pathological fracture; E05.00 Thyrotoxicosis with diffuse goiter without thyrotoxic crisis or storm; Z85.3 Personal history of malignant neoplasm of breast
CPT/HCPCS: 96367; 96372; 96375; 96413; 96417; C9113; J1100; J1200; J1453; J2060; J2469; J3420; J3490; J7050; J9045; J9271; J9305

== ENCOUNTER 2019-10-24 10:23 | Outpatient (CLI) | payer MEDICARE, OTHER, SELFPAY ==
[2019-10-24 10:57] LABS: Basophils % 0.3 %; Eosinophils % 0.4 %; Hematocrit 43.6 % (37.0-47.0); Hemoglobin 14.5 g/dL (11.5-15.3); Lymphocytes # 0.8 10^3/uL (0.8-4.8); Lymphocytes % 6.8 %; Mean Corpuscular HGB Conc 33.3 g/dL (30.0-36.0); Mean Corpuscular Volume 90.1 fL (81-99); Mean Platelet Volume 9.5 fL (7.4-10.4); Monocytes # 0.4 10^3/uL (0.2-0.9); Monocytes % 3.4 %; Neutrophils # 9.72 10^3/uL (1.8-7.7); Neutrophils % 87.9 %; Nucleated Red Blood Cells % 0 %; Platelet Count 72 10^3/cmm (130-400); Red Blood Count 4.84 10^6/uL (4.1-5.3); Red Cell Distribution Width 12.4 % (12.1-15.1)
[2019-10-24 11:11] LABS: Alanine Aminotransferase 50 U/L (0-33); Albumin Level 3.1 g/dL (3.5-5.2); Alkaline Phosphatase 71 IU/L (35-105); Anion Gap 13.1 (5-19); Aspartate Amino Transferase 20 U/L (0-32); Blood Urea Nitrogen 18 mg/dL (8-23); Calcium 8.4 mg/dL (8.5-10.5); Carbon Dioxide 26 mmol/L (22-29); Chloride 94 mmol/L (98-107); Globulin 2.5 g/dL (1.3-4.6); Glucose 108 mg/dL (65-115); Osmolality Calculated 265 mOsm/kg (285-295); Potassium 4.1 mmol/L (3.5-5.1); Sodium 129 mmol/L (136-145); Total Bilirubin 0.6 mg/dL (0.15-1.2); Total Protein 5.6 g/dL (6.6-8.7)
[2019-10-24] MEDS: sodium chloride 0.9% 1,000 ML 75 ML IV (11:15)
[2019-10-24] MEDS: fluconazole premix 200 MG/100 ML PREMIX 100 MG IV (12:30)
--- NOTE | 2019-11-02 12:45 | ONC FU_ITS ---
[facility] Patient Note Patient: Melony Chu Unit #: [id number]: 1940 Dictated By: Fuad JohnsonDate of Visit: Oct 24, 2019 Onc MED Follow-Up/Prog Note Chief Complaint: Lung cancer. 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 Her disease appears to be stage IIIB (T1c, N3, M0). She has a history of having undergone lumpectomy/axillary lymph node sampling and radiation for left breast cancer in 2003. She also was given adjuvant chemotherapy and adjuvant hormonal therapy. She has had no evidence of recurrence of the breast cancer. In June 2019 she sustained an injury to her left chest after falling out of bed at night. Her chest/rib x-rays on 06/20/2019 showed atelectasis at the left lung base with minimal left effusion. There was no evidence for rib fracture. She continued to have pain, and she then had further evaluation with chest CT on 07/09/2019. That study showed a pleural-based pulmonary lesion in the left upper lobe measuring 1.6 x 1.4 x 2.1 cm. There was some soft tissue thickening in the adjacent chest wall. Numerous enlarged lymph nodes were noted in the lower neck, anterior mediastinum, AP window, and hilum bilaterally. This included enlarged paratracheal and enlarged subcarinal lymph nodes. The largest measured 1.3 cm. PET/CT on 07/21/2019 showed FDG avid subpleural nodule in the anterior left upper lobe measuring 1.9 x 1.5 cm, SUV 4.9. This appeared to most likely represent a primary lung carcinoma. A right lower lobe perihilar nodule measuring 2.7 x 1.7 cm was FDG avid with SUV 5.8. FDG positive lymph nodes were noted in the bilateral paratracheal, prevascular, subaortic, subcarinal, and bilateral hilar territories. Malignant nodes were also evident in the neck bilaterally, including bilateral supraclavicular, bilateral level IV, and left level III jugulodigastric territories. There was no evidence of other metastatic disease. She was referred to Dr. Sykes, and on 08/03/2019 she underwent bronchoscopy/EBUS with FNA biopsies of left upper lobe nodule and multiple lymph nodes. The left upper lobe mass biopsy showed non-small cell carcinoma. Biopsies of station 4R, station 7, and station 10R nodes were all positive for metastatic non-small cell carcinoma. On further pathologic analysis the tumor was felt to be most consistent with poorly differentiated adenocarcinoma, most likely of lung origin. The tumor cells were positive for TTF-1, Napsin, CK-Navdeep, and CK7. The breast markers, including GCDFP and BCA 225 were negative. A next generation sequencing study was requested but was not able to be done because the biopsy sample was insufficient. Because she is a nonsmoker, Dr Pedersen recommended getting another biopsy to obtain additional tissue for analysis. She underwent ultrasound directed needle biopsy of a left cervical lymph node on 09/04/2019. Pathology showed metastatic carcinoma consistent with lung primary. A next generation sequencing study has been in process. Only partial results have been reported. 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 Mrs. Chu had additional staging with MRI of the brain on 10/08/2019 which revealed no evidence for metastatic disease; mild chronic microvascular ischemic disease. She underwent Port-A-Cath placement with Dr. Hill with a left subclavian Port-A-Cath she also had placement of a left tunneled pleural drain placement on October 15, 2019. Ms. Chu has been offered treatment with carboplatin Alimta and Keytruda. She is here today for follow-up after starting her first cycle of chemo/immunotherapy on 10/16/2019. She states overall she feels pretty good. She has had some tightness in her ears that started a couple days ago. She denies any actual ear pain. She is had no drainage. She denies any fever or chills. She denies cough. She states that she felt really good after chemo but starting this last Tuesday and then today she has had increasing fatigue. She states she does feel a bit better today but not as good as she did over the weekend. She states that she is having a funny taste in her mouth. Her daughter is concerned that she may have some yeast in her mouth as well. She is had no trouble swallowing other than things just taste weird. She denies any nausea or vomiting. Nausea seems to be well controlled. She is utilizing a scopolamine patch. She wore this the first couple days after treatment. She states she is not wearing 1 now she took it off she believes on Tuesday. She states her nausea has been well controlled and she was concerned about that in the beginning. She denies any diarrhea or constipation. She is had no lower extremity edema. She denies any neuropathy symptoms at present. Her daughter feels that she needs to change her Lexapro to either an increased dose or another agent. Mrs. Curran appetite continues to wax and wane. We did discuss changing her to Zyprexa instead of the Lexapro to see if this will help protect her from nausea, increase her appetite and treat her chronic depression. They state they are willing to try this. Mrs. Chu's ECOG is 2. Past Medical History: Anxiety/depression Graves Disease History of parathyroid dysfunction Osteoporosis History of breast cancer in 2003 (Treated: She recieved 6 rounds of Chemotherapy and 33 rounds of radition from Breast Cancer.) Past Surgical History: Bilateral cataract excisions Left Subclavian Port-A-Cath in 2019 Left Tunneled Pleural Drain in 2019 Navigational bronchoscopy with EBUS and biopsies of left lung mass and mediastinal lymph nodes in 2019 Left breast lumpectomy and axillary lymph node sampling in 2003 LEEP procedure in 1999 D & C in [address] [place] [address] [place] port and left tunnel drain placement Allergies: Codeine Sulfate Medications: Acetaminophen Extra Strength 2 Tablet (of 500 mg) Oral every am Dexamethasone 1 Tablet (of 4 mg) Oral b.i.d. Escitalopram Oxalate 1 Tablet (of 20 mg) Oral daily Folic Acid 1 Tablet (of 400 mcg) Oral daily Pantoprazole Sodium 1 Tablet (of 40 mg) Tablet, enteric coated Oral b.i.d. traMADol HCl 1 Tablet (of 50 mg) Oral t.i.d. PRN Family History: Ms. Chu's mother at age 93: DIABETES MELLITUS, and STROKE. Ms. Chu's father at age 76: HEART DISEASE, and MYOCARDIAL INFARCTION. Ms. Chu has 1 brother who is : diabetes mellitus. She has 1 sister who is alive: chronic obstructive pulmonary disease. Father of heart disease at age 76. Mother had diabetes and stroke. She lived age 93. A brother age 73 with complications of diabetes. One sister is still living. She has COPD and history of pulmonary embolism. Her maternal grandmother had some type of DIETITIAN THERAPEUTIC cancer. Social History: Ms. Chu is and she is retired. Ms. Chu has never smoked. She has no history of drinking. 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 She is a non-smoker. She does not drink alcohol. Review Of Symptoms: Constitutional Denies fevers, chills, night sweats. Has generalized weakness but not new and no worse than what it has been over the last few months. See above. Allergic/Immunologic No reactions. Eyes Denies significant visual changes. No diplopia. No amaurosis. ENND She states she has had some slight trouble swallowing but more of a taste issue than a swallowing issue. She has had ear tightness as above. No actual drainage from the ears. She denies any fever or chills. Hematologic/Lymphatic Denies easy bruising or bleeding. The patient denies any tender or palpable lymph nodes. Respiratory SOB with exertion. Requires continuous oxygen supplementation and a wheelchair for ambulation. Cardiovascular Denies anginal chest pain, palpitations or orthopnea. Gastrointestinal Denies nausea, vomiting, diarrhea, GI bleeding, or constipation. Denies change in bowel habits and/or stool color, no heartburn or early satiety. Genitourinary (F) No hematuria, hesitancy, incontinence, vaginal bleeding, discharge or other problems with urination. Musculoskeletal Denies joint pain, swelling or redness. No decreased range of motion. Integumentary Denies chronic rashes, inflammation, ulcerations or skin changes. Neurologic Denies headache, blurred vision, and no areas of focal weakness or numbness. No sensory problems. Gait not assessed. Psychiatric Denies insomnia, depression, segundo or mood swings. Vital Signs: Performed on Oct 24, 2019 11:47 Height - 63.00 in Weight - 126.7 lbs (LOW) BSA - 1.59 sq.m BMI - 22.44 Temperature - 97.1 F (LOW) Pulse - 82 /min Respiration - 22 /min BP - 99/65 mm(hg) O2 Sat - 97 % Pain - 0,2 - Ambulatory/capable of all self-care, unable to perform any work activities. Up and about more than 50% of waking hours. (ECOG) Physical Examination: Constitutional Alert, oriented, no acute distress. Skin pale pink warm and dry. Frail in general appearance. Head Normocephalic; atraumatic. Eyes Conjunctivae and sclerae are clear and without icterus. Pupils are reactive and equal. ENMT Oral cavity is noted to have scattered white discoloration on several areas especially the top of the palate and the back of the palate. The tongue is noted to have Candidiasis as well. There are no oral lesions. Ears are unremarkable bilaterally. TMs are visualized with good light reflex. Neck Supple without masses or thyromegaly. No jugular venous distension. Hematologic/Lymphatic No petechiae or purpura. No tender or palpable lymph nodes in the cervical or supraclavicular areas. Respiratory Lungs are clear to auscultation without rhonchi or wheezing. Cardiovascular Regular rate and rhythm of heart without murmurs,clicks, gallops or rubs. Chest Left chest wall venous access device site has healed well- it is unremarkable today. Abdomen Non-tender, non-distended, no masses or ascites. Left tunnel drain is also covered with a dressing but no odor, exudate or other abnormalities noted on quick exam. Home health to come tomorrow. Back/Spine Non-tender to palpation. Extremities No visible deformities, no cyanosis, clubbing or edema. Musculoskeletal No tenderness or swelling, normal range of motion with obvious weakness. Integumentary No rashes or lesions. Neurologic No sensory or motor deficits, normal cerebellar function. Psychiatric Alert and oriented times three. Coherent speech. Verbalizes understanding of our discussions today. Laboratory:Test performed on Oct 30, 2019 08:50 Glucose 132 mg/dL BUN 16 mg/dL Creatinine 0.4 mg/dL Cr Clearance (Est) 106.86 mL/min Sodium 133 mmol/L Potassium 3.4 mmol/L Chloride 96 mmol/L CO2 27 mmol/L Calcium 8.4 mg/dL Protein, Total 5.9 g/dL Albumin 3.2 g/dL Globulin 2.7 g/dL Bilirubin, Total 0.3 mg/dL Alkaline Phosphatase 94 IU/L AST (SGOT) 17 IU/L ALT (SGPT) 53 IU/L PT 13.10 sec WBC 3.5 10^9/L INR 0.97 RBC 4.41 10^12/L HGB 13.1 g/dL HCT 40.1 % MCV 90.9 fl MCH 29.7 pg MCHC 32.7 g/dL RDW 12.6 % Platelet Count 49 10^9/L MPV 9.2 fL Neutrophils (Gran) 2.69 10^9/L Lymphocytes 0.6 10^9/L Monocytes 0.1 10^9/L Eosinophils 0.0 10^9/L Basophils 0.0 10^9/L Manual Lymphocytes 18.2 % Manual Monocytes 4.0 % Manual Eosinophils 0.0 % Manual Basophils 0.0 % Test performed on Oct 24, 2019 10:48 Anion Gap 13.1 Neutrophil % 87.9 % Lymphocyte % 6.8 % Monocyte % 3.4 % Eosinophil % 0.4 % Basophils % 0.3 % NRBC % 0 % Test performed on Oct 15, 2019 08:40 T4, Free 1.69 ng/dL TSH 1.51 uU/mL NRBCs 0.0 /100 WBC Impression: 1. 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 There was biopsy proven mediastinal lymph node involvement. By PET/CT, her disease appeared to be stage IIIB (T1c, N3, M0). 2. She has remote history of left breast cancer for which she underwent lumpectomy/radiation, adjuvant chemotherapy, and adjuvant hormonal therapy. Her other medical illnesses include: 3. She has a history of Graves' disease, treated medically. 4. She has a history of parathyroidectomy for parathyroid dysfunction, ( assumed hyperparathyroidism). 5. Osteoporosis. 6. Anxiety/depression. She underwent ultrasound directed needle biopsy of a left cervical lymph node on 09/04/2019. Pathology showed metastatic carcinoma consistent with lung primary. A next generation sequencing study has been in process. A next generation sequencing study has been in process. Only partial results have been reported. 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 Mrs. Chu had additional staging with MRI of the brain on 10/08/2019 which revealed no evidence for metastatic disease; mild chronic microvascular ischemic disease. She underwent Port-A-Cath placement with Dr. Hill with a left subclavian Port-A-Cath she also had placement of a left tunneled pleural drain placement on October 15, 2019. Ms. Chu has been offered treatment with carboplatin Alimta and Keytruda. She began her first cycle on October 16, 2019. She has tolerated it relatively well thus far. Plan: 1. Proceed with cycle 1 carboplatin AUC 5, Alimta and Keytruda-this is day 8. 2. 2. We will have her try Diflucan first dose IV today as she is already receiving anti-medics/hydration. Then she will do 100 mg orally. 3. In regards to the tightness in the ears I am uncertain of the etiology. It is possible it could be related to scopolamine patch. She was encouraged to watch and see if she can define any correlation if she utilizes the patch again prior to her next cycle of chemo. 4. We will going to switch her Lexapro to Zyprexa. The Zyprexa have started at 5 mg and anticipate that we will have to titrate up. However I did want to start her at the smallest dose and work her way up to monitor for side effects. 5. Labs from today were reviewed in detail and discussed with Ms. Chu and her daughter and a copy was given to them. WBC is 11, hemoglobin 14.5, platelets 72,000 (they were to 89 last week) ANC is 9700. Creatinine 0.4 LFTs are normal random glucose was 108. 6. Ms. Chu will have repeat CBC CMP next week. 7. We will plan to see her back in 2 weeks for cycle 2 Alimta/Keytruda. Of asked that she have a CBC CMP and TSH at that time. 8. Mrs. Chu was encouraged to contact us in the interim should questions or problems arise or if she feels she is not tolerating the new medication changes. 9. Mrs. Chu will receive hydration/antiemetics as well as IV Diflucan today. She will let us know how she feels after this. We may need to set her up for couple times a week if needed. Signed By: Fuad Johnson-, AOCNP Parth Pedersen MD <<Signature on File>>
== END 2019-10-24 10:24 | disposition home or self-care (01) ==
PROVIDERS: PCP Family Medicine; Visit Provider Nurse Practitioner
DX: C34.12 Malignant neoplasm of upper lobe, left bronchus or lung (principal); C77.1 Secondary and unspecified malignant neoplasm of intrathoracic lymph nodes; E89.2 Postprocedural hypoparathyroidism; M81.0 Age-related osteoporosis without current pathological fracture; F41.8 Other specified anxiety disorders; H93.93 Unspecified disorder of ear, bilateral; Z85.3 Personal history of malignant neoplasm of breast; Z79.899 Other long term (current) drug therapy; Z92.3 Personal history of irradiation; Z86.39 Personal history of other endocrine, nutritional and metabolic disease; Z92.23 Personal history of estrogen therapy
CPT/HCPCS: 80053; 85025; 96361; 96365; 96367; 99214; J1100; J1450; J3490; J7030

== ENCOUNTER 2019-10-30 10:42 | Outpatient (CLI) | payer MEDICARE, OTHER, SELFPAY ==
[2019-10-30 10:58] LABS: Hematocrit 40.1 % (37.0-47.0); Hemoglobin 13.1 g/dL (11.5-15.3); Lymphocytes # 0.6 10^3/uL (0.8-4.8); Lymphocytes % 18.2 %; Mean Corpuscular HGB Conc 32.7 g/dL (30.0-36.0); Mean Corpuscular Hemoglobin 29.7 pg (28.0-34.0); Mean Corpuscular Volume 90.9 fL (81-99); Mean Platelet Volume 9.2 fL (7.4-10.4); Monocytes # 0.1 10^3/uL (0.2-0.9); Neutrophils # 2.69 10^3/uL (1.8-7.7); Neutrophils % 76.7 %; Nucleated Red Blood Cells % 0 %; Platelet Count 49 10^3/cmm (130-400); Red Blood Count 4.41 10^6/uL (4.1-5.3); Red Cell Distribution Width 12.6 % (12.1-15.1); White Blood Count 3.5 10^3/uL (4.0-10.0)
[2019-10-30 11:10] LABS: INR 0.97 (0.8-1.2)
[2019-10-30 11:15] LABS: Alanine Aminotransferase 53 U/L (0-33); Albumin Level 3.2 g/dL (3.5-5.2); Alkaline Phosphatase 94 IU/L (35-105); Anion Gap 13.4 (5-19); Aspartate Amino Transferase 17 U/L (0-32); Blood Urea Nitrogen 16 mg/dL (8-23); Calcium 8.4 mg/dL (8.5-10.5); Carbon Dioxide 27 mmol/L (22-29); Chloride 96 mmol/L (98-107); Globulin 2.7 g/dL (1.3-4.6); Glucose 132 mg/dL (65-115); Osmolality Calculated 274 mOsm/kg (285-295); Potassium 3.4 mmol/L (3.5-5.1); Sodium 133 mmol/L (136-145); Total Bilirubin 0.3 mg/dL (0.15-1.2); Total Protein 5.9 g/dL (6.6-8.7)
== END 2019-10-30 10:43 | disposition home or self-care (01) ==
LOC: LAB 10:45
PROVIDERS: PCP Family Medicine; Visit Provider Family Medicine
DX: C34.12 Malignant neoplasm of upper lobe, left bronchus or lung (principal)
CPT/HCPCS: 80053; 85025; 85610

== ENCOUNTER 2019-11-05 16:05 | Outpatient (CLI) | payer MEDICARE, OTHER, SELFPAY ==
[2019-11-05 16:18] LABS: Basophils % 0.6 %; Hematocrit 40.4 % (37.0-47.0); Hemoglobin 13.2 g/dL (11.5-15.3); Lymphocytes % 19.5 %; Mean Corpuscular HGB Conc 32.7 g/dL (30.0-36.0); Mean Corpuscular Hemoglobin 29.4 pg (28.0-34.0); Mean Platelet Volume 9.1 fL (7.4-10.4); Monocytes # 0.4 10^3/uL (0.2-0.9); Monocytes % 7.4 %; Neutrophils # 3.24 10^3/uL (1.8-7.7); Nucleated Red Blood Cells % 0 %; Platelet Count 125 10^3/cmm (130-400); Red Blood Count 4.49 10^6/uL (4.1-5.3); Red Cell Distribution Width 13.1 % (12.1-15.1); White Blood Count 5.2 10^3/uL (4.0-10.0)
[2019-11-05 16:21] LABS: Neutrophils % 72.5 %
[2019-11-05 16:26] LABS: INR 0.99 (0.8-1.2)
[2019-11-05 16:29] LABS: Alanine Aminotransferase 49 U/L (0-33); Albumin Level 3.3 g/dL (3.5-5.2); Alkaline Phosphatase 106 IU/L (35-105); Aspartate Amino Transferase 20 U/L (0-32); Blood Urea Nitrogen 19 mg/dL (8-23); Calcium 8.7 mg/dL (8.5-10.5); Carbon Dioxide 26 mmol/L (22-29); Chloride 93 mmol/L (98-107); Globulin 2.4 g/dL (1.3-4.6); Glucose 124 mg/dL (65-115); Osmolality Calculated 270 mOsm/kg (285-295); Sodium 131 mmol/L (136-145); Total Bilirubin 0.2 mg/dL (0.15-1.2); Total Protein 5.7 g/dL (6.6-8.7)
== END 2019-11-05 16:06 | disposition home or self-care (01) ==
LOC: LAB 16:07
PROVIDERS: PCP Family Medicine; Visit Provider Internal Medicine Medical Oncology
DX: C34.10 Malignant neoplasm of upper lobe, unspecified bronchus or lung (principal)
CPT/HCPCS: 80053; 85025; 85610

== ENCOUNTER 2019-11-06 11:05 | Outpatient (CLI) | payer MEDICARE, OTHER, SELFPAY ==
[2019-11-06] MEDS: scopolamine 1.5 Patch 1 PATCH TRANSDERMA (12:40)
[2019-11-06] MEDS: sodium chloride 0.9% 250 ML 999 ML IV (13:14)
--- NOTE | 2019-11-10 16:03 | ONC FU_ITS ---
[facility] Patient Note Patient: Melony Chu Unit #: [id number]: [id number] Dictated By: Fuad JhonsonDate of Visit: Nov 06, 2019 Onc MED Follow-Up/Prog Note Chief Complaint: Lung cancer. 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 Her disease appears to be stage IIIB (T1c, N3, M0). She has a history of having undergone lumpectomy/axillary lymph node sampling and radiation for left breast cancer in 2003. She also was given adjuvant chemotherapy and adjuvant hormonal therapy. She has had no evidence of recurrence of the breast cancer. In June 2019 she sustained an injury to her left chest after falling out of bed at night. Her chest/rib x-rays on 06/20/2019 showed atelectasis at the left lung base with minimal left effusion. There was no evidence for rib fracture. She continued to have pain, and she then had further evaluation with chest CT on 07/09/2019. That study showed a pleural-based pulmonary lesion in the left upper lobe measuring 1.6 x 1.4 x 2.1 cm. There was some soft tissue thickening in the adjacent chest wall. Numerous enlarged lymph nodes were noted in the lower neck, anterior mediastinum, AP window, and hilum bilaterally. This included enlarged paratracheal and enlarged subcarinal lymph nodes. The largest measured 1.3 cm. PET/CT on 07/21/2019 showed FDG avid subpleural nodule in the anterior left upper lobe measuring 1.9 x 1.5 cm, SUV 4.9. This appeared to most likely represent a primary lung carcinoma. A right lower lobe perihilar nodule measuring 2.7 x 1.7 cm was FDG avid with SUV 5.8. FDG positive lymph nodes were noted in the bilateral paratracheal, prevascular, subaortic, subcarinal, and bilateral hilar territories. Malignant nodes were also evident in the neck bilaterally, including bilateral supraclavicular, bilateral level IV, and left level III jugulodigastric territories. There was no evidence of other metastatic disease. She was referred to Dr. Sykes, and on 08/03/2019 she underwent bronchoscopy/EBUS with FNA biopsies of left upper lobe nodule and multiple lymph nodes. The left upper lobe mass biopsy showed non-small cell carcinoma. Biopsies of station 4R, station 7, and station 10R nodes were all positive for metastatic non-small cell carcinoma. On further pathologic analysis the tumor was felt to be most consistent with poorly differentiated adenocarcinoma, most likely of lung origin. The tumor cells were positive for TTF-1, Napsin, CK-Navdeep, and CK7. The breast markers, including GCDFP and BCA 225 were negative. A next generation sequencing study was requested but was not able to be done because the biopsy sample was insufficient. Because she is a nonsmoker, Dr Pedersen recommended getting another biopsy to obtain additional tissue for analysis. She underwent ultrasound directed needle biopsy of a left cervical lymph node on 09/04/2019. Pathology showed metastatic carcinoma consistent with lung primary. A next generation sequencing study has been in process. Only partial results have been reported. 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 Mrs. Chu had additional staging with MRI of the brain on 10/08/2019 which revealed no evidence for metastatic disease; mild chronic microvascular ischemic disease. She underwent Port-A-Cath placement with Dr. Hill with a left subclavian Port-A-Cath she also had placement of a left tunneled pleural drain placement on October 15, 2019. Ms. Chu has been offered treatment with carboplatin Alimta and Keytruda. She started her first cycle of chemo/immunotherapy on 10/16/2019. She is here today for followup and is due for cycle 2. She states overall she feels pretty good. She denies any fever or chills. She denies cough. She denies any nausea or vomiting. Nausea seems to be well controlled. She has been utilizing a scopolamine patch. She wore this the first couple days after treatment. She states she is not wearing 1 now she took it off she believes on Tuesday. She states her nausea has been well controlled and she was concerned about that in the beginning. She states she wants to make sure we do everything the same with this treatment as the last because nausea was not a problem. She denies any diarrhea or constipation. She has had no lower extremity edema. She denies any neuropathy symptoms at present. Mrs. Chu's ECOG is 2. Past Medical History: Anxiety/depression Graves Disease History of parathyroid dysfunction Osteoporosis History of breast cancer in 2003 (Treated: She recieved 6 rounds of Chemotherapy and 33 rounds of radition from Breast Cancer.) Past Surgical History: Bilateral cataract excisions Left Subclavian Port-A-Cath in 2019 Left Tunneled Pleural Drain in 2019 Navigational bronchoscopy with EBUS and biopsies of left lung mass and mediastinal lymph nodes in 2019 Left breast lumpectomy and axillary lymph node sampling in 2003 LEEP procedure in 1999 D & C in [address] Hill ([facility] [place]) for port and left tunnel drain placement Allergies: Codeine Sulfate Medications: Acetaminophen Extra Strength 2 Tablet (of 500 mg) Oral every am Dexamethasone 1 Tablet (of 4 mg) Oral b.i.d. Escitalopram Oxalate 1 Tablet (of 20 mg) Oral daily Folic Acid 1 Tablet (of 400 mcg) Oral daily Pantoprazole Sodium 1 Tablet (of 40 mg) Tablet, enteric coated Oral b.i.d. traMADol HCl 1 Tablet (of 50 mg) Oral t.i.d. PRN Family History: Ms. Chu's mother at age 93: DIABETES MELLITUS, and STROKE. Ms. Chu's father at age 76: HEART DISEASE, and MYOCARDIAL INFARCTION. Ms. Chu has 1 brother who is : diabetes mellitus. She has 1 sister who is alive: chronic obstructive pulmonary disease. Father of heart disease at age 76. Mother had diabetes and stroke. She lived age 93. A brother age 73 with complications of diabetes. One sister is still living. She has COPD and history of pulmonary embolism. Her maternal grandmother had some type of OFFICE MACHINE SERVICER cancer. Social History: Ms. Chu is and she is retired. Ms. Chu has never smoked. She has no history of drinking. 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 She is a non-smoker. She does not drink alcohol. Review Of Symptoms: Constitutional Denies fevers, chills, night sweats. States she is feeling better overall. No new concerns today. Allergic/Immunologic No reactions. Eyes Denies significant visual changes. No diplopia. No amaurosis. ENMT She states she has had some slight trouble swallowing but more of a taste issue than a swallowing issue . She denies any fever or chills. Hematologic/Lymphatic Denies easy bruising or bleeding. The patient denies any tender or palpable lymph nodes. Respiratory SOB with exertion. Requires continuous oxygen supplementation and a wheelchair or walker for ambulation. Cardiovascular Denies anginal chest pain, palpitations or orthopnea. Gastrointestinal Denies nausea, vomiting, diarrhea, GI bleeding, or constipation. Denies change in bowel habits and/or stool color, no heartburn or early satiety. Genitourinary (F) No hematuria, hesitancy, incontinence, vaginal bleeding, discharge or other problems with urination. Musculoskeletal Denies joint pain, swelling or redness. No decreased range of motion. Integumentary Denies chronic rashes, inflammation, ulcerations or skin changes. Neurologic Denies headache, blurred vision, and no areas of focal weakness or numbness. No sensory problems. Gait not assessed. Psychiatric Denies insomnia, depression, segundo or mood swings. Vital Signs: Performed on Nov 06, 2019 11:46 Height - 63.00 in Weight - 130.4 lbs (HIGH) BSA - 1.61 sq.m BMI - 23.10 Temperature - 97.6 F (LOW) Pulse - 86 /min Respiration - 18 /min BP - 114/70 mm(hg) O2 Sat - 98 % Pain - 0,2 - Ambulatory/capable of all self-care, unable to perform any work activities. Up and about more than 50% of waking hours. (ECOG) Physical Examination: Constitutional Alert, oriented, no acute distress. Skin pink warm and dry. Frail in general appearance. Head Normocephalic; atraumatic. Eyes Conjunctivae and sclerae are clear and without icterus. Pupils are reactive and equal. Neck Supple without masses or thyromegaly. No jugular venous distension. Hematologic/Lymphatic No petechiae or purpura. No tender or palpable lymph nodes in the cervical or supraclavicular areas. Respiratory Lungs are clear to auscultation without rhonchi or wheezing. Cardiovascular Regular rate and rhythm of heart without murmurs,clicks, gallops or rubs. Chest Left chest wall venous access device site is unremarkable. Abdomen Non-tender, non-distended, no masses or ascites. Left tunnel drain is also covered with a dressing but no odor, exudate or other abnormalities noted on quick exam. Home health to come tomorrow. Back/Spine Non-tender to palpation. Extremities No visible deformities, no cyanosis, clubbing or edema. Musculoskeletal No tenderness or swelling, normal range of motion with obvious weakness but improved since last visit. Integumentary No rashes or lesions. Neurologic No sensory or motor deficits, normal cerebellar function. Psychiatric Alert and oriented times three. Coherent speech. Verbalizes understanding of our discussions today. Laboratory:Test performed on Nov 06, 2019 12:15 Creatinine 0.4 mg/dL Cr Clearance (Est) 106.86 mL/min Test performed on Nov 05, 2019 15:00 Glucose 124 mg/dL BUN 19 mg/dL Sodium 131 mmol/L Potassium 4.0 mmol/L Chloride 93 mmol/L CO2 26 mmol/L Calcium 8.7 mg/dL Protein, Total 5.7 g/dL Albumin 3.3 g/dL Globulin 2.4 g/dL Bilirubin, Total 0.2 mg/dL Alkaline Phosphatase 106 IU/L AST (SGOT) 20 IU/L ALT (SGPT) 49 IU/L PT 13.40 sec WBC 5.2 10^9/L INR 0.99 RBC 4.49 10^12/L HGB 13.2 g/dL HCT 40.4 % MCV 90.0 fl MCH 29.4 pg MCHC 32.7 g/dL RDW 13.1 % Platelet Count 125 10^9/L MPV 9.1 fL Neutrophils (Gran) 3.24 10^9/L Lymphocytes 1.0 10^9/L Monocytes 0.4 10^9/L Eosinophils 0.0 10^9/L Basophils 0.0 10^9/L Manual Lymphocytes 19.5 % Manual Monocytes 7.4 % Manual Eosinophils 0.0 % Manual Basophils 0.6 % Test performed on Oct 24, 2019 10:48 Anion Gap 13.1 Neutrophil % 87.9 % Lymphocyte % 6.8 % Monocyte % 3.4 % Eosinophil % 0.4 % Basophils % 0.3 % NRBC % 0 % Test performed on Oct 15, 2019 08:40 T4, Free 1.69 ng/dL TSH 1.51 uU/mL NRBCs 0.0 /100 WBC Impression: 1. 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 There was biopsy proven mediastinal lymph node involvement. By PET/CT, her disease appeared to be stage IIIB (T1c, N3, M0). 2. She has remote history of left breast cancer for which she underwent lumpectomy/radiation, adjuvant chemotherapy, and adjuvant hormonal therapy. Her other medical illnesses include: 3. She has a history of Graves' disease, treated medically. 4. She has a history of parathyroidectomy for parathyroid dysfunction, ( assumed hyperparathyroidism). 5. Osteoporosis. 6. Anxiety/depression. She underwent ultrasound directed needle biopsy of a left cervical lymph node on 09/04/2019. Pathology showed metastatic carcinoma consistent with lung primary. A next generation sequencing study has been in process. A next generation sequencing study has been in process. Only partial results have been reported. 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 Mrs. Chu had additional staging with MRI of the brain on 10/08/2019 which revealed no evidence for metastatic disease; mild chronic microvascular ischemic disease. She underwent Port-A-Cath placement with Dr. Hill with a left subclavian Port-A-Cath she also had placement of a left tunneled pleural drain placement on October 15, 2019. Ms. Chu has been offered treatment with carboplatin Alimta and Keytruda. She began her first cycle on October 16, 2019. She has tolerated it relatively well thus far. Plan: 1. Proceed with cycle 2 carboplatin AUC 5, Alimta and Keytruda-this is day 1. 2. Labs from 11/05/2019 were reviewed in detail and discussed with Ms. Chu and her daughter and a copy was given to them. WBC is 5.2, hemoglobin 13.2, platelets 125,000 (they were to 49 last week) ANC is 3200. Creatinine 0.4 LFTs are normal random glucose was 124. 3. Ms. Chu will have interim CBC CMP the next 2 weeks via home health. 4. We will plan to see her back in 3 weeks for cycle 3 Alimta/Keytruda. I have asked that she have a CBC CMP and TSH at that time. 5. We will decrease her drain frequency to 2 times a week as she states that she feels she is getting too much out. We will continue her hydration at home via home health 2-3 times weekly as needed. 6. Mrs. Chu was encouraged to contact us in the interim should questions or problems arise. Signed By: Fuad Johnson-, [facility] Parth Pedersen MD <<Signature on File>>
== END 2019-11-06 11:06 | disposition home or self-care (01) ==
LOC: ONCMED 11:10
PROVIDERS: PCP Family Medicine; Visit Provider Nurse Practitioner
DX: Z51.12 Encounter for antineoplastic immunotherapy (principal); C34.12 Malignant neoplasm of upper lobe, left bronchus or lung; C77.8 Secondary and unspecified malignant neoplasm of lymph nodes of multiple regions; Z85.3 Personal history of malignant neoplasm of breast; E89.2 Postprocedural hypoparathyroidism; M81.0 Age-related osteoporosis without current pathological fracture; F41.8 Other specified anxiety disorders; I99.8 Other disorder of circulatory system; Z92.3 Personal history of irradiation; Z79.899 Other long term (current) drug therapy; Z92.23 Personal history of estrogen therapy; Z86.39 Personal history of other endocrine, nutritional and metabolic disease; Z95.828 Presence of other vascular implants and grafts
CPT/HCPCS: 96367; 96413; 96417; 99214; J1100; J1200; J1453; J2469; J3490; J7050; J9045; J9271; J9305

== ENCOUNTER 2019-11-09 09:37 | Emergency (ER) | payer MEDICARE, OTHER, SELFPAY ==
[2019-11-09 09:45] VITALS: BP 138/86; PULSE 80; RESP 20; TEMP 36.7; O2SAT 99; BMI 23.0
--- NOTE | 2019-11-09 10:24 | ECG_ITS ---
[facility] Test Date: 2019-11-09 Pat Name: Melony Chu Department: Room: Gender: Female Placement Assistant: : 1940 Requested By: Jimbo Munoz Order Number: [id number] Jami MD: Conrad Rosen M.D. Measurements Intervals [place] Rate: 82 P: 46 SD: 144 QRS: 25 QRSD: 91 T: 39 QT: 348 QTc: 408 Interpretive Statements SINUS RHYTHM POSSIBLE LEFT ATRIAL ENLARGEMENT [-0.1mV P WAVE IN V1/V2] POSSIBLE RIGHT VENTRICULAR CONDUCTION DELAY [RSR (QR) IN V1/V2] INTERPRETATION BASED ON A DEFAULT AGE OF 40 YEARS Compared to ECG 10/15/2019 08:57:50 No significant changes Electronically Signed On 11-09-2019 16:04:45 CDT by Conrad Rosen M.D. [email or web address]
--- NOTE | 2019-11-09 10:25 | CT_ITS ---
WS: [id number] CT HEAD TECHNIQUE: Noncontrast CT of the head obtained from the skullbase to the vertex. CLINICAL INFORMATION: leg weakness, lung CA COMPARISON: None. DLP: 747.[address] scans at [facility] use at least one of these dose optimization techniques: automat ed exposure control; mA and/or kV adjustment per patient size (includes targeted exams where dose is matched to clinical indication); or iterative reconstruction. FINDINGS: No evidence of intracranial hemorrhage or mass effect. Ventricular system and basal cisterns are rubi nt. Mild small vessel changes with moderate parenchymal volume loss. No extra-axial fluid collections . No evidence of mass or mass effect. Normal mejía-white differentiation. Paranasal sinuses and mastoid air cells are well aerated. .Normal visualized soft tissues. CT/CT head wo con* [id number] IMPRESSION: 1. No evidence of intracranial hemorrhage or mass effect. 2. Mild small vessel changes. Moderate parenchymal volume loss. 3. No acute intracranial findings.
--- NOTE | 2019-11-09 10:25 | XRR_ITS ---
PROCEDURE INFORMATION: Exam: XR Chest, 1 View Exam date and time: 11/09/2019 10:46 AM Age: 79 years old Clinical indication: Cough and dyspnea; Prior surgery; Surgery type: Breast, thyroid; Patient HX: Current dx of lung cancer; Additional info: Dyspnea/cough TECHNIQUE: Imaging protocol: XR of the chest Views: 1 view. COMPARISON: CR XR chest 1V portable [id number] 10/15/2019 12:31 PM FINDINGS: Tubes, catheters and devices: Thoracotomy tube inferior aspect left hemithorax Lungs: Severe emphysema. mild opacity in the left retrocardiac region-atelectasis versus infiltrate. Pleural space: Unremarkable. No pleural effusion. No pneumothorax. Heart/Mediastinum: Unremarkable. No cardiomegaly. Vasculature: Chest port via the left subclavian approach with the tip overlying the superior vena cava. Bones/joints: Unremarkable. XR/XR chest 1V portable [id number] IMPRESSION: 1. Severe emphysema. 2. Mild opacity in the left retrocardiac region-atelectasis versus infiltrate. Minimal change overall.
--- NOTE | 2019-11-09 10:26 | ED_ITS ---
HPI - Weakness General: Chief complaint: Weakness Stated complaint: poss stroke symptoms Time Seen by Provider: 11/09/19 09:41 History of Present Illness: HPI Narrative: 79-year-old female who has a history of lung cancer received chemo earlier this week 3 days ago last night she felt like she got caught up in some of her bedding she was trying to get out of bed and instead she is essentially slept on the floor. She generally felt so weak she was unable to use either of her legs. Daughter brought her in this morning's concern that she had a stroke. She is awake alert oriented x3 answers questions appropriately. She is rather annoyed with her daughter who brought her to the emergency room and they have conflicting descriptions of the events although they are somewhat near enough it sounds more of her perspective issue. Patient did receive her last round of chemo 3 days ago. Patient denies fever dysuria urgency or frequency there is been no nausea vomiting or diarrhea no respiratory symptoms no abdominal pain. 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 MD Complaint: generalized weakness Onset (ago): hour(s) Duration: intermittent Location: LLE and RLE Migration: none Severity: moderate Relieving factors: none Exacerbating factors: none Context: other (Lung CA with recent chemotherapy treatment) Associated symptoms: Reports no associated symptoms; Denies chest pain, chills, melena, dysuria, fever(s), nausea or vomiting Review of Systems Const: Denies: fever(s), chills, body aches, change in appetite, fatigue or malaise ENMT: Denies: throat pain, ear or mastoid pain, nasal discharge or nasal congestion Card: Denies: chest pain, edema, dyspnea on exertion or orthopnea Resp: Denies: dyspnea, productive cough or non-productive cough GI: Denies: abdominal pain, nausea, vomiting, hematemesis, coffee ground emesis, diarrhea, constipation, bloating, hematochezia or melena : Denies: flank pain, difficulty voiding, dysuria, urinary frequency or urinary urgency Skin/Breast: Denies: rash or pruritus PFSH ED PFSH: Medical History Breast cancer Breast - Ductal carcinoma Left breast in 2003. Lumpectomy and chemotherapy done in [place], [place] Radiation - [facility]. she states that she follows up with the oncology department in [facility]. Depression Labial abscess - Anticipated performing a vulvar biopsy, that after the local was injected and purulent drainage returned the procedure was transitioned to an I&D. small amount of pus noted; flushed til clear Still uncertain if abscess versus mass Start clindamycin oral x 10 days Warm water soaks several times/day Vegetable shortening for skin barrier due to incontinence If no improvement after abx, needs biopsy Return in 3 weeks if needed Parathyroid dysfunction Patient denies medical problems Patient denies any past medical history of hypertension, diabetes, heart, lung, liver, kidney, bleeding, or clotting problems. Surgical History History of dilation and curettage Done for heavy bleeding in 1965 History of loop electrical excision procedure (LEEP) Done for an abnormal Pap smear in 1999. She states that all Pap smears since then have been normal. History of lumpectomy of left breast Left breast cancer 2003. She states that she had lymph node removal a month after this procedure. History of parathyroidectomy Done in the Family History Mother Diabetes Thyroid condition Brother Diabetes Father Heart disease Family/Other Patient denies medical problems Patient denies any family history of hypertension, stroke, hypercholesterolemia, breast cancer, ovarian cancer, uterine cancer, colon cancer. Social History Smoking and tobacco status: never smoked Alcohol intake: never Lives independently: Yes Household members: none Marital status: / Current occupational status: retired History of recent travel: No Current gender identity: Female Physical Exam Const: COMMON NORMALS: no acute distress GENERAL APPEARANCE: cooperative and comfortable ORIENTATION/CONSCIOUSNESS: Yes awake, Yes oriented to person, Yes oriented to place and Yes oriented to time HENMT: COMMON NORMALS: normocephalic, atraumatic, hearing grossly normal bilaterally, external ears normal, EAC's normal, TM's normal bilaterally, Normal nasal mucous membranes and turbinates present, moist oral mucous membranes and oropharynx normal HEAD & SCALP: normocephalic and atraumatic NOSE: Normal nasal mucous membranes and turbinates present EXTERNAL EAR: Yes external ears normal EXTERNAL AUDITORY CANAL: EAC's normal TYMPANIC MEMBRANE: TM's normal bilaterally Eye: COMMON NORMALS: Equal, round and reactive pupils present, EOMs intact bilaterally, conjunctivae normal and no scleral icterus CONJUNCTIVA: Yes conjunctivae normal PUPIL: Yes Equal, round and reactive pupils present Neck/C-Spine: COMMON NORMALS: full ROM, no lymphadenopathy, supple and no JVD Lymph: LYMPHATIC: no lymphadenopathy noted and no lymphedema noted Resp: COMMON NORMALS: normal respiratory effort, No retractions, No use of accessory muscles and clear to auscultation bilaterally AUSCULTATION: clear to auscultation bilaterally Cardio: COMMON NORMALS: no JVD, regular rate, regular rhythm and No murmurs present (Cardio) RATE: regular rate RHYTHM: regular rhythm GI: COMMON NORMALS: Soft to palpation and No hepatosplenomegaly present AUSCULTATION: Yes normoactive bowel sounds PALPATION: Yes Soft to palpation, No Tenderness to palpation present (GI), No Guarding due to palpation present (GI) and Yes No hepatosplenomegaly present Extremity: COMMON NORMALS: normal to inspection, capillary refill normal, no clubbing, cyanosis or edema, no calf tenderness and no pedal edema Neuro: SENSORIUM/ORIENTATION: Yes oriented to person, Yes oriented to place and Yes oriented to time Skin: COMMON NORMALS: no rashes or lesions noted GENERAL SKIN EXAM: no rashes or lesions noted Course Vital Signs: Vital signs: Vital Signs Temperature 98.1 F 11/09/19 09:45 Pulse Rate 98 11/09/19 13:41 Respiratory Rate 18 11/09/19 13:41 Blood Pressure 120/83 11/09/19 13:41 Pulse Oximetry 98 11/09/19 13:41 MDM - Weakness MDM Narrative: Medical decision making narrative: CT and the CT of the head and neck are negative. The only I find on exam she has a little bit of loss of ordination and using her right leg when I asked her to do [id number] everything else is completely normal. We will go ahead and discharge her home c ontinue to follow with oncology and her primary care doctor I think largely this is due to generalized weakness from the treatment for chemo of her lung CA. daughter is very concerned that something else may be going on. We had a long discussion she could benefit from an MRI if Dr. Pedersen is concerned about her continuing on aspirin that may be warranted. At this time she has no significant deficits given the limb ataxia with the right leg has improved slightly. This could be due to weakness or could be due to a previous stroke MRI could delineate this. However discussed with the family that there is not much we would do in terms of intervention given the fact that she is well outside the window for TPA she has no findings on make her a candidate for thrombectomy and at the time of presentation her NIH score was quite low. At this point she is awake alert and articulate I do think that the majority of this is due to weakness generalized deconditioning from her cancer and the effec ts of participating in chemotherapy. Follow-up with Dr. Pedersen return if she has any further problems. Lab Data: Labs: Lab Results 11/09/19 11/09/19 11/09/19 Range/Units 11:07 11:07 11:30 WBC 9.1 (4.0-10.0) 10^3/ uL RBC 4.28 (4.1-5.3) 10^6/u L Hgb 12.8 (11.5-15.3) g/dL Hct 37.6 (37.0-47.0) % MCV 87.9 (81-99) fL MCH 29.9 (28.0-34.0) pg MCHC 34.0 (30.0-36.0) g/dL RDW 13.2 (12.1-15.1) % Plt Count 177 (130-400) 10^3/c mm MPV 8.8 (7.4-10.4) fL Neut % (Auto) 87.4 % Lymph % (Auto) 9.4 % [place] % (Auto) 1.3 % Eos % (Auto) 0.0 % Baso % (Auto) 0.1 % Neut # (Auto) 7.91 H (1.8-7.7) 10^3/u L Lymph # (Auto) 0.9 (0.8-4.8) 10^3/u L [place] # (Auto) 0.1 L (0.2-0.9) 10^3/u L Eos # (Auto) 0.0 (0.0-0.8) 10^3/u L Baso # (Auto) 0.0 (0.0-0.1) 10^3/u L Nucleated RBC % (a uto) 0 % Nucleated RBCs # 0.0 /100WBC Sodium 131 L (136-145) mmol/L Potassium 3.9 (3.5-5.1) mmol/L Chloride 96 L (98-107) mmol/L Carbon Dioxide 25 (22-29) mmol/L Anion Gap 13.9 (5-19) BUN 15 (8-23) mg/dL Creatinine 0.4 L (0.5-0.9) mg/dL GFR Calculation Not Reportable Glucose 122 H (65-115) mg/dL Calculated Osmolal ity 270 L (285-295) mOsm/k g Calcium 8.8 (8.5-10.5) mg/dL Total Bilirubin 0.3 (0.15-1.2) mg/dL AST 25 (0-32) U/L ALT 57 H (0-33) U/L Alkaline Phosphata se 106 H (35-105) IU/L Total Protein 5.6 L (6.6-8.7) g/dL Albumin 3.4 L (3.5-5.2) g/dL Globulin 2.2 (1.3-4.6) g/dL Urine Color Straw (Yellow) Urine Appearance Clear (CLEAR) Urine pH 7.0 (5-7) Ur Specific Gravit y 1.005 (1.005-1.030) Urine Protein Neg (Negative) Urine Glucose (UA) Norm (Normal) Urine Ketones Negative (Negative) Urine Blood Neg (Negative) Urine Nitrate Negative (Negative) Urine Bilirubin Neg (NEGATIVE) Urine Urobilinogen Norm (Negative) mg/dL Ur Leukocyte Luz ase Negative (Negative) Discharge Plan Discharge Patient Disposition: Home Clinical Impression: Weakness, Lung cancer, primary, with metastasis from lung to other site Condition: Stable Prescriptions: No Action escitalopram oxalate 20 mg tablet 20 mg PO DAILY RF: 0 acetaminophen [Tylenol Extra Strength] 500 mg Tablet 1,000 mg PO PRN RF: 0 dexamethasone 4 mg Tablet 4 mg PO BID RF: 0 Protonix 40 mg Tablet,Delayed Release (Dr/Ec) 40 mg PO BID RF: 0 folic acid 1 mg Tablet 1 mg PO DAILY RF: 0 scopolamine base 1 mg over 3 days Patch 3 Day 1 patch TRANSDERMAL Q3D RF: 0 Discharge Orders: Discharge Order (Routine); Ordered 11/09/19 Ordered By: Jimbo Villalobos Referrals: Eliecer Rodriguez MD [Primary Care Provider] - Discharge Diet: Usual diet Discharge Activity: Increase activity as tolerated Activity Restrictions/Additional Instructions: Continue to follow-up as previously scheduled with Dr. Sanchez and with oncology Discharge Date/Time: 11/09/19 13:37 Coding Level of Care Code ED Can Reforming Machine Operator for Chg Fwd Exam Comprehensive NIH stroke score NIHSS Level Of Consciousness - 1a: 0 Level Of Consciousness Questions - 1b: Both Correct Level Of Consciousness Commands - 1c: Both Correct Best Gaze - 2: Normal Visual Travis - 3: No Visual Loss Facial Palsy - 4: Normal Motor Arm Right - 5: No Drift Motor Arm Left - 5: No Drift Motor Leg Right - 6: No Drift Motor Leg Left - 6: No Drift Limb Ataxia - 7: Present In One Limb Sensory - 8: Normal Best Language - 9: No Aphasia Dysarthia - 10: Normal Extinction And Inattention - 11: 0 Score Total Score: 1
[2019-11-09 11:18] LABS: Basophils % 0.1 %; Hematocrit 37.6 % (37.0-47.0); Hemoglobin 12.8 g/dL (11.5-15.3); Lymphocytes # 0.9 10^3/uL (0.8-4.8); Lymphocytes % 9.4 %; Mean Corpuscular Hemoglobin 29.9 pg (28.0-34.0); Mean Corpuscular Volume 87.9 fL (81-99); Mean Platelet Volume 8.8 fL (7.4-10.4); Monocytes # 0.1 10^3/uL (0.2-0.9); Monocytes % 1.3 %; Neutrophils # 7.91 10^3/uL (1.8-7.7); Neutrophils % 87.4 %; Nucleated Red Blood Cells % 0 %; Platelet Count 177 10^3/cmm (130-400); Red Blood Count 4.28 10^6/uL (4.1-5.3); Red Cell Distribution Width 13.2 % (12.1-15.1); White Blood Count 9.1 10^3/uL (4.0-10.0)
--- NOTE | 2019-11-09 11:25 | CT_ITS ---
WS: [id number] CTA HEAD AND NECK TECHNIQUE: Contrast enhanced CTA of the head and neck with coronal and sagittal reformatted images an d maximum intensity projection (MIP) images. NASCET criteria utilized. CLINICAL INFORMATION: CVA COMPARISON: None. DLP: 1463.[address] scans at [facility] use at least one of these dose optimization techniques: automat ed exposure control; mA and/or kV adjustment per patient size (includes targeted exams where dose is matched to clinical indication); or iterative reconstruction. FINDINGS: RIGHT: Right common carotid artery is patent. No significant right ICA stenosis. ICA is patent to the skull base. Tortuous cervical ICA at the skull base. LEFT: Left common carotid artery is patent. No significant left ICA stenosis. Left ICA is patent to t he skull base. INTRACRANIAL CTA: Normal vascularity to the PIEDAD and MCA territories bilaterally. No flow-limiting proximal stenosis. Sm all left A1. No evidence of high-grade proximal stenosis or aneurysm. Right dominant vertebral artery. Tiny but patent left vertebral artery. Small but patent basilar larisa ry with dominant anterior circulation. Normal vascularity to the SPEEDER FRAME TENDER territory bilaterally. 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 Emphysematous changes in the lung apices. Subpleural Focal opacity/fibrosis in the left upper lobe an teriorly appears stable since October 05, 2019. A few prominent lymph nodes in the left lower neck nonsp ecific but likely reactive. Notified Jimbo Villalobos DO at 11/09/2019 1:[address]/CT angio headneck* [id number] IMPRESSION: 1. No significant cervical ICA stenosis. Both ICAs are patent to the skull bas e. 2. No flow-limiting intracranial stenosis. 3. Right dominant vertebral artery. Smaller but patent left vertebral artery. 4. Smaller but patent basilar artery with dominant anterior circulation. 5. Incidental hypoplastic left A1 which remains patent. 6. Normal vascularity to the proximal MCA and PIEDAD territories. 7. Moderate small vessel changes moderate parenchymal volume loss. 8. Moderate spondylitic changes cervical spine
[2019-11-09 11:31] LABS: Alanine Aminotransferase 57 U/L (0-33); Albumin Level 3.4 g/dL (3.5-5.2); Alkaline Phosphatase 106 IU/L (35-105); Anion Gap 13.9 (5-19); Aspartate Amino Transferase 25 U/L (0-32); Blood Urea Nitrogen 15 mg/dL (8-23); Calcium 8.8 mg/dL (8.5-10.5); Carbon Dioxide 25 mmol/L (22-29); Chloride 96 mmol/L (98-107); Globulin 2.2 g/dL (1.3-4.6); Glucose 122 mg/dL (65-115); Osmolality Calculated 270 mOsm/kg (285-295); Potassium 3.9 mmol/L (3.5-5.1); Sodium 131 mmol/L (136-145); Total Bilirubin 0.3 mg/dL (0.15-1.2); Total Protein 5.6 g/dL (6.6-8.7)
[2019-11-09 11:39] LABS: Add Urine Microscopic? NO
[2019-11-09 11:47] LABS: Bilirubin Urine Neg (NEGATIVE); Blood Urine Neg (Negative); Glucose Urine UA Norm (Normal); Ketones Urine Negative (Negative); Leukocyte Esterase Urine Negative (Negative); Nitrate Urine Negative (Negative); Protein Urine Neg (Negative); Specific Gravity, Urine 1.005 (1.005-1.030); Urine Appearance Clear (CLEAR); Urine Color Straw (Yellow); Urobilinogen Urine Norm (Negative)
[2019-11-09 11:56] VITALS: BP 130/82; PULSE 83; RESP 18; O2SAT 97
[2019-11-09] MEDS: iohexol 350 mg/mL 100 mL Btl IV (12:56)
[2019-11-09 13:12] VITALS: PULSE 77; RESP 18; O2SAT 99
[2019-11-09 13:41] VITALS: BP 120/83; PULSE 98; RESP 18; O2SAT 98
== END 2019-11-09 13:37 | disposition home or self-care (01) ==
PROVIDERS: Emergency Provider Family Medicine; PCP Family Medicine
DX: R53.1 Weakness (principal); C34.90 Malignant neoplasm of unspecified part of unspecified bronchus or lung; C79.9 Secondary malignant neoplasm of unspecified site; Z85.3 Personal history of malignant neoplasm of breast
CPT/HCPCS: 12345; 36415; 70450; 70496; 70498; 71045; 80053; 81003; 85025; 93005; 99283; 99284; Q9967

== ENCOUNTER 2019-11-12 11:52 | Outpatient (CLI) | payer MEDICARE, OTHER, SELFPAY ==
[2019-11-12 12:18] LABS: Hematocrit 35.8 % (37.0-47.0); Hemoglobin 11.8 g/dL (11.5-15.3); Lymphocytes # 0.5 10^3/uL (0.8-4.8); Lymphocytes % 29.7 %; Mean Corpuscular Hemoglobin 30.1 pg (28.0-34.0); Mean Corpuscular Volume 91.3 fL (81-99); Mean Platelet Volume 8.6 fL (7.4-10.4); Monocytes % 2.2 %; Neutrophils # 1.17 10^3/uL (1.8-7.7); Neutrophils % 64.3 %; Nucleated Red Blood Cells % 0 %; Platelet Count 82 10^3/cmm (130-400); Red Blood Count 3.92 10^6/uL (4.1-5.3); Red Cell Distribution Width 13.7 % (12.1-15.1); White Blood Count 1.8 10^3/uL (4.0-10.0)
[2019-11-12 12:33] LABS: Alanine Aminotransferase 57 U/L (0-33); Albumin Level 2.8 g/dL (3.5-5.2); Alkaline Phosphatase 88 IU/L (35-105); Anion Gap 16.4 (5-19); Aspartate Amino Transferase 28 U/L (0-32); Blood Urea Nitrogen 13 mg/dL (8-23); Calcium 7.5 mg/dL (8.5-10.5); Carbon Dioxide 25 mmol/L (22-29); Chloride 94 mmol/L (98-107); Globulin 2.5 g/dL (1.3-4.6); Glucose 169 mg/dL (65-115); Osmolality Calculated 274 mOsm/kg (285-295); Potassium 3.4 mmol/L (3.5-5.1); Sodium 132 mmol/L (136-145); Total Bilirubin 0.4 mg/dL (0.15-1.2); Total Protein 5.3 g/dL (6.6-8.7)
== END 2019-11-12 11:53 | disposition home or self-care (01) ==
LOC: LAB 11:54
PROVIDERS: PCP Family Medicine; Visit Provider Internal Medicine Medical Oncology
DX: C34.12 Malignant neoplasm of upper lobe, left bronchus or lung (principal)
CPT/HCPCS: 80053; 85025

== ENCOUNTER 2019-11-19 20:38 | Outpatient (CLI) | payer MEDICARE, OTHER, SELFPAY ==
[2019-11-19 21:22] LABS: Basophils % 0.6 %; Hematocrit 34.5 % (37.0-47.0); Hemoglobin 11.4 g/dL (11.5-15.3); Lymphocytes # 1.2 10^3/uL (0.8-4.8); Lymphocytes % 36.2 %; Mean Corpuscular Hemoglobin 29.5 pg (28.0-34.0); Mean Corpuscular Volume 89.1 fL (81-99); Mean Platelet Volume 9.3 fL (7.4-10.4); Monocytes # 0.3 10^3/uL (0.2-0.9); Monocytes % 9.8 %; Neutrophils # 1.43 10^3/uL (1.8-7.7); Neutrophils % 43.9 %; Nucleated Red Blood Cells # 0.1 /100WBC; Nucleated Red Blood Cells % 1.5 %; Platelet Count 55 10^3/cmm (130-400); Red Blood Count 3.87 10^6/uL (4.1-5.3); Red Cell Distribution Width 13.8 % (12.1-15.1); White Blood Count 3.3 10^3/uL (4.0-10.0)
[2019-11-19 21:33] LABS: Alanine Aminotransferase 61 U/L (0-33); Albumin Level 3.6 g/dL (3.5-5.2); Alkaline Phosphatase 123 IU/L (35-105); Aspartate Amino Transferase 21 U/L (0-32); Blood Urea Nitrogen 26 mg/dL (8-23); Calcium 8.8 mg/dL (8.5-10.5); Carbon Dioxide 26 mmol/L (22-29); Chloride 97 mmol/L (98-107); Globulin 2.2 g/dL (1.3-4.6); Glucose 127 mg/dL (65-115); Osmolality Calculated 270 mOsm/kg (285-295); Sodium 131 mmol/L (136-145); Thyroid Stimulating Hormone 0.87 uIU/mL (0.27-4.20); Total Bilirubin 0.3 mg/dL (0.15-1.2); Total Protein 5.8 g/dL (6.6-8.7)
[2019-11-19 21:58] LABS: Slide Review Slide Review Perform
== END 2019-11-19 20:39 | disposition home or self-care (01) ==
LOC: RADWPI 20:44 → RAD 20:48
PROVIDERS: PCP Family Medicine; Visit Provider Family Medicine
DX: C34.12 Malignant neoplasm of upper lobe, left bronchus or lung (principal)
CPT/HCPCS: 80053; 84443; 85025

== ENCOUNTER 2019-11-26 09:50 | Outpatient (CLI) | payer MEDICARE, OTHER, SELFPAY ==
--- NOTE | 2019-11-26 10:26 | MR_ITS ---
WS: [id number] MRI HEAD WITH CONTRAST TECHNIQUE: Sagittal T1, T2 axial, T2 axial FLAIR, axial susceptibility weighted imaging, axial diffus ion weighted images, and coronal T2 images were obtained. Pre and post-T1 axial and post T1 coronal i mages. ADC and FSPGR images. CLINICAL INFORMATION: HX OF LUNG CANCER COMPARISON: CT November 08 MRI October 08, 2019 FINDINGS: No evidence of restricted diffusion to suggest acute ischemia. Ventricular system and basal cisterns are patent. Moderate small vessel changes. Moderate parenchymal volume loss. Small vessel changes in the alfonso. Normal posterior fossa. Normal vascular flow voids at the skull base. No extra-axial fluid collections. Paranasal sinuses and mastoid air cells are well aerated. No hemosiderin on susceptibly weighted images. Normal optic chiasm and pituitary infundibulum. Moderate symmetric atrophy involving the temporal lobes and hippocampal formations. No abnormal gadolinium enhancement. No evidence of enhancing intracranial metastatic disease. Normal visualized dural venous sinuses. MR/MR head wo/w con [id number] IMPRESSION: 1. No restricted diffusion to suggest acute ischemia. 2. Moderate small vessel changes with moderate parenchymal volume loss. Small vessel changes in the alfonso. 3. No evidence of enhancing intracranial metastatic disease. 4. No hydrocephalus or mass effect. 5. No other significant interval changes.
== END 2019-11-26 09:51 | disposition home or self-care (01) ==
LOC: RADWPI 09:57
PROVIDERS: Family Provider Family Medicine; PCP Family Medicine; Visit Provider Internal Medicine Medical Oncology
DX: Z85.118 Personal history of other malignant neoplasm of bronchus and lung (principal)
CPT/HCPCS: 70553; A9579

== ENCOUNTER 2019-11-27 13:30 | Outpatient (CLI) | payer MEDICARE, OTHER, SELFPAY ==
[2019-11-27 13:48] LABS: Hematocrit 33.5 % (37.0-47.0); Hemoglobin 11.3 g/dL (11.5-15.3); Mean Corpuscular HGB Conc 33.7 g/dL (30.0-36.0); Mean Corpuscular Hemoglobin 29.9 pg (28.0-34.0); Mean Corpuscular Volume 88.6 fL (81-99); Mean Platelet Volume 9.3 fL (7.4-10.4); Platelet Count 182 10^3/cmm (130-400); Red Blood Count 3.78 10^6/uL (4.1-5.3); Red Cell Distribution Width 15.9 % (12.1-15.1); White Blood Count 10.1 10^3/uL (4.0-10.0)
[2019-11-27 14:13] LABS: Alanine Aminotransferase 45 U/L (0-33); Albumin Level 3.4 g/dL (3.5-5.2); Alkaline Phosphatase 103 IU/L (35-105); Anion Gap 15.9 (5-19); Aspartate Amino Transferase 20 U/L (0-32); Blood Urea Nitrogen 20 mg/dL (8-23); Calcium 8.7 mg/dL (8.5-10.5); Carbon Dioxide 25 mmol/L (22-29); Chloride 96 mmol/L (98-107); Globulin 2.4 g/dL (1.3-4.6); Glucose 150 mg/dL (65-115); Osmolality Calculated 275 mOsm/kg (285-295); Potassium 3.9 mmol/L (3.5-5.1); Sodium 133 mmol/L (136-145); Total Bilirubin 0.2 mg/dL (0.15-1.2); Total Protein 5.8 g/dL (6.6-8.7)
[2019-11-27 14:35] LABS: Slide Review Slide Review Perform
[2019-11-27 14:47] LABS: Absolute Neutrophil 6.5 10^3/cmm (1.4-6.5); Absolute Segmented Neutrophil 6.2 10/cmm (1.6-7.1); Anisocytosis Trace; Band Neutrophils Absolute 0.3 10^3/cmm (0.0-1.2); Lymphocytes 8 %; Monocytes Absolute 1.6 10^3/cmm (0.1-0.6); Platelet Estimate Normal (Normal); Segmented Neutrophils 61 %; Total Cells Counted 100 (0-100)
== END 2019-11-27 13:31 | disposition home or self-care (01) ==
LOC: LAB 13:34
PROVIDERS: PCP Family Medicine; Visit Provider Internal Medicine Medical Oncology
DX: C34.10 Malignant neoplasm of upper lobe, unspecified bronchus or lung (principal)
CPT/HCPCS: 80053; 85007; 85025

== ENCOUNTER 2019-11-28 11:58 | Outpatient (CLI) | payer MEDICARE, OTHER, SELFPAY ==
--- NOTE | 2019-11-28 20:54 | ONC FU_ITS ---
Dr. Pedersen Patient Follow-Up Note Patient: Melony Chu Unit #: [id number]: 1940 Dicatated By: Parth Pedersen M.D.Date of Visit:Nov 28, 2019 Onc Med Follow-up/Prog Note Chief Complaint: Lung cancer. 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 By clinical evaluation her disease appeared to be stage IIIB (T1c, N3, M0). In June 2019 she sustained an injury to her left chest after falling out of bed at night. Her chest/rib x-rays on 06/20/2019 showed atelectasis at the left lung base with minimal left effusion. There was no evidence for rib fracture. She continued to have pain, and she then had further evaluation with chest CT on 07/09/2019. That study showed a pleural-based pulmonary lesion in the left upper lobe measuring 1.6 x 1.4 x 2.1 cm. There was some soft tissue thickening in the adjacent chest wall. Numerous enlarged lymph nodes were noted in the lower neck, anterior mediastinum, AP window, and hilum bilaterally. This included enlarged paratracheal and enlarged subcarinal lymph nodes. The largest measured 1.3 cm. PET/CT on 07/21/2019 showed FDG avid subpleural nodule in the anterior left upper lobe measuring 1.9 x 1.5 cm, SUV 4.9. This appeared to most likely represent a primary lung carcinoma. A right lower lobe perihilar nodule measuring 2.7 x 1.7 cm was FDG avid with SUV 5.8. FDG positive lymph nodes were noted in the bilateral paratracheal, prevascular, subaortic, subcarinal, and bilateral hilar territories. Malignant nodes were also evident in the neck bilaterally, including bilateral supraclavicular, bilateral level IV, and left level III jugulodigastric territories. There was no evidence of other metastatic disease. She was referred to Dr. Sykes, and on 08/03/2019 she underwent bronchoscopy/EBUS with FNA biopsies of left upper lobe nodule and multiple lymph nodes. The left upper lobe mass biopsy showed non-small cell carcinoma. Biopsies of station 4R, station 7, and station 10R nodes were all positive for metastatic non-small cell carcinoma. On further pathologic analysis the tumor was felt to be most consistent with poorly differentiated adenocarcinoma, most likely of lung origin. The tumor cells were positive for TTF-1, Napsin, CK-Navdeep, and CK7. The breast markers, including GCDFP and BCA 225 were negative. A next generation sequencing study was requested but was not able to be done because the biopsy sample was insufficient. Because she is a nonsmoker, I had recommended getting another biopsy to obtain additional tissue for analysis. She underwent ultrasound directed needle biopsy of a left cervical lymph node on 09/04/2019. Pathology showed metastatic carcinoma consistent with lung primary. The next generation sequencing study on that specimen still did not yield a high quality interpretable results. However, the tumor was reported to be negative for EGFR, BRAF, and KRAS mutations and it was negative for the ALK and ROS1 gene rearrangements. It was negative for PD-L1 expression, and it was MSI stable. With those findings, she was recommended to undergo trial of combined chemotherapy/immunotherapy with carboplatin/pemetrexed in combination with pembrolizumab. She has a history of having undergone lumpectomy/axillary lymph node sampling and radiation for left breast cancer in 2004. She also was given adjuvant chemotherapy and adjuvant hormonal therapy. She has had no evidence of recurrence of the breast cancer. She has additional history T2, N0 infiltrating ductal carcinoma of the left breast, which was ER negative/OH positive and HER-2/fatuma negative. Her treatment included lumpectomy/radiation, 6 cycles of FEC adjuvant chemotherapy, and adjuvant hormonal therapy, she has had no evidence of recurrence. She has a history of Graves' disease which was treated medically and she has a history of parathyroidectomy for hyperparathyroidism. Other medical illnesses include osteoporosis and anxiety/depression. She is a non-smoker. INTERIM HISTORY: Following her second biopsy, she had complained of worsening shortness of breath, and she was found to have increasing left pleural effusion for which she ultimately underwent placement of a left tunneled pleural drain on 10/15/2019. She then began cycle 1 of carboplatin/pemetrexed and pembrolizumab on 10/16/2019. She tolerated the treatment reasonably well, and she was able to continue with cycle 2 on 11/06/2019. She is seen for a followup visit. She has been generally weak and shaky since her last chemotherapy treatment. On the third day following the treatment she had developed an episode of severe weakness in the lower extremities, to the point that she was not able to use her legs. Her daughter indicates that she was talking funny and she also seemed more agitated than normal. She was evaluated in the emergency room and a CT angiogram of the head and neck was unrevealing. The episode lasted a few hours. She is better now, though she says she is still very weak. She does get up and around at home at least every hour, but she is unable to do any kind of work activity. She has good appetite. She does not have fever or night sweats. She required treatment with acyclovir for a herpes simplex lesion, and that is getting better now. Her breathing is pretty good on oxygen. She does not complain of cough and she has not been having chest pain. She has no GI or complaints, and she has no significant joint or bone pain. She does not complain of headache. She has some orthostatic lightheadedness. She has some numbness in her feet/toes following her previous chemotherapy. That has not gotten any worse. Medications: Acetaminophen Extra Strength 2 Tablet (of 500 mg) Oral every am, Dexamethasone 1 Tablet (of 4 mg) Oral b.i.d., Escitalopram Oxalate 1 Tablet (of 20 mg) Oral daily, Folic Acid 1 Tablet (of 400 mcg) Oral daily, Pantoprazole Sodium 1 Tablet (of 40 mg) Tablet, enteric coated Oral b.i.d., traMADol HCl 1 Tablet (of 50 mg) Oral t.i.d. PRN Allergies: Codeine Sulfate Review of Systems: Constitutional - She has alot of weakness and her energy is low, but she is making herself get up and walk every hour. She has a slow and unsteady gait, and she is using a walker. Her appetite is good and weight is up a few pounds. No fever, night sweats, or hot flashes. ECOG score is 2, ENMT - No sinus congestion/drainage. She has mouth sores. No sore throat or difficulty swallowing, Hematologic/Lymphatic - She bruises easily, Respiratory - No shortness of breath. No cough. No pleuritic pain or hemoptysis, Cardiovascular - No angina pain. No palpitations, Gastrointestinal - No nausea or vomiting. Her heartburn is adequately managed with pantoprazole. No diarrhea or constipation. No blood in the stool or black stools, Genitourinary (F) - No dysuria or hematuria. No urinary frequency. No urgency or incontinence, Musculoskeletal - No joint or bone pain, Integumentary - She has some pressure ulcers to her buttocks, Neurologic - No headaches. She has intermittent dizziness. She has numbness and tingling in her feet. On 11/08 she had an episode of complete loss of the usage of her legs as well as garbled speech. She was also acting very aggressive, Psychiatric - She is having some anxiety and increased depression. No insomnia. Vital Signs: Performed on Nov 28, 2019 12:18 Height - 63.00 in Weight - 132.2 lbs (HIGH) BSA - 1.62 sq.m BMI - 23.42 Temperature - 98.2 F (LOW) Pulse - 94 /min Respiration - 16 /min BP - 121/72 mm(hg) O2 Sat - 97 % Pain - 0 Physical Examination: Constitutional - She appears generally weak, Eyes - Sclerae nonicteric. Conjunctivae clear, ENMT - There is a resolving herpes simplex lesion near the corner of her mouth on the right side. There are no lesions noted in the oral cavity, Hematologic/Lymphatic - No cervical, clavicular, or axillary adenopathy noted, Respiratory - Lungs show diminished air movement at the left base, Cardiovascular - Heart rhythm is regular. There is no murmur, gallop, or rub noted, Abdomen - Soft. Liver and spleen are not enlarged. There is no abdominal mass or ascites noted and there is no inguinal adenopathy, Extremities - Trace edema, Integumentary - There is a fairly large but superficial decubitus ulceration in the right gluteal region, near the gluteal fold. There is a smaller but slightly deeper lesion in a similar location on the left side, Neurologic - No focal neurologic deficits noted. Lab/Imaging: Test performed on Nov 19, 2019 20:00 TSH 0.87 uU/mL Glucose 127 mg/dL BUN 26 mg/dL Creatinine 0.4 mg/dL Cr Clearance (Est) 106.86 mL/min Sodium 131 mmol/L Potassium 4.0 mmol/L Chloride 97 mmol/L CO2 26 mmol/L Calcium 8.8 mg/dL Protein, Total 5.8 g/dL Albumin 3.6 g/dL Globulin 2.2 g/dL Bilirubin, Total 0.3 mg/dL Alkaline Phosphatase 123 IU/L AST (SGOT) 21 IU/L ALT (SGPT) 61 IU/L WBC 3.3 10^9/L RBC 3.87 10^12/L HGB 11.4 g/dL HCT 34.5 % MCV 89.1 fl MCH 29.5 pg MCHC 33.0 g/dL RDW 13.8 % Platelet Count 55 10^9/L MPV 9.3 fL Neutrophils (Gran) 1.43 10^9/L Lymphocytes 1.2 10^9/L Monocytes 0.3 10^9/L Eosinophils 0.0 10^9/L Basophils 0.0 10^9/L Manual Lymphocytes 36.2 % Manual Monocytes 9.8 % Manual Eosinophils 0.0 % Manual Basophils 0.6 % Impression: 1. 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 There was biopsy proven mediastinal lymph node involvement. By PET/CT, her disease appeared to be stage IIIB (T1c, N3, M0). 2. She underwent ultrasound directed core needle biopsy of left cervical lymph node on 09/04/2019. Her molecular studies by next generation sequencing were unrevealing, and the tumor was negative for PD-L1 expression. 3. She subsequently developed increased left pleural effusion, requiring placement of [place] drain in the left chest. Her other medical illnesses include: 4. She has a history of Graves' disease, treated medically. 5. She has a history of parathyroidectomy for parathyroid dysfunction, ( assumed hyperparathyroidism). 6. Osteoporosis. 7. Anxiety/depression. 8. She has remote history of left breast cancer for which she underwent lumpectomy/radiation, adjuvant chemotherapy, and adjuvant hormonal therapy. She was recommended to undergo trial of combined chemotherapy/immunotherapy with carboplatin/pemetrexed in combination with pembrolizumab. She began cycle 1 on 10/16/2019. She tolerated it reasonably well, and she continue with cycle 2 on 11/06/2019. On the third day following that treatment, she had an acute episode in which she lost use of both legs. The episode lasted for several hours. A specific cause for it was not determined. Since then she has remained generally weak and shaky. She has been requiring IV hydration through home health. She also is getting treatment for 2 decubitus skin ulcerations. She has not yet been evaluated for response to the treatment. Plan: She is scheduled for restaging CT scans tomorrow. Depending on the results, we will decide whether or not to proceed with a third cycle of treatment. However, at a minimum, I will want to delay it until next week. Signed By: Parth Pedersen M.D. <<Signature on File>>
== END 2019-11-28 11:59 | disposition home or self-care (01) ==
LOC: ONCMED 12:02
PROVIDERS: PCP Family Medicine; Visit Provider Internal Medicine Medical Oncology
DX: C34.12 Malignant neoplasm of upper lobe, left bronchus or lung (principal); C77.1 Secondary and unspecified malignant neoplasm of intrathoracic lymph nodes; R53.1 Weakness; L89.329 Pressure ulcer of left buttock, unspecified stage; L89.319 Pressure ulcer of right buttock, unspecified stage; E05.00 Thyrotoxicosis with diffuse goiter without thyrotoxic crisis or storm; E89.2 Postprocedural hypoparathyroidism; M81.0 Age-related osteoporosis without current pathological fracture; F41.8 Other specified anxiety disorders; Z85.3 Personal history of malignant neoplasm of breast; Z92.3 Personal history of irradiation; Z92.23 Personal history of estrogen therapy
CPT/HCPCS: 99214

== ENCOUNTER 2019-11-29 12:53 | Outpatient (CLI) | payer MEDICARE, OTHER, SELFPAY ==
--- NOTE | 2019-11-29 13:03 | CT_ITS ---
WS: [id number] EXAM: CT chest w con* [id number] DATE OF EXAMINATION: 11/29/2019, 1325 hours COMPARISON: CT of the chest from 10/05/2019 HISTORY: 79 years old with a history of breast and lung cancer. TECHNIQUE: Transaxial computed tomography images obtained through the chest utilizing 95 mL of Omnipa que 300 IV contrast with images acquired in the bolus phase and viewed in multiple windows with recon structions. DLP: 682.[address] scans at [facility] use at least one of these dose optimization techniques: automat ed exposure control; mA and/or kV adjustment per patient size (includes targeted exams where dose is matched to clinical indication); or iterative reconstruction. FINDINGS: Since the prior examination a percutaneous drain has been placed in the left hemithorax entering the chest between the anterior lateral T7 and T8 ribs with the catheter extending posterior inferior and medially with evacuation of the largest component of the massive left pleural effusion. A small amoun t of pleural fluid remains. Slight pleural thickening noted. No complication associated with the perc utaneous drainage catheter noted. Calcified granuloma noted in the right upper lobe on the anterior inferior segment. Small amount of s ubpleural infiltrate seen in the right upper outer chest new since the prior examination suggesting a small area of pneumonitis. No new right-sided pulmonary nodules are seen. No right effusion or pneum othorax. Left chest from shows marked interval reexpansion. Subpleural infiltrate is less apparent overlying t he anterior chest wall. Area of previous infiltrate has markedly regressed. There is a small pleural- based area of soft tissue nodularity which is presumably an area of trapped lung is demonstrated. I s uspect this also may be may be within the port for radiation fibrosis change. Pleural-based neoplasti c mass not completely excluded but definitely is less likely. Overall appearance is better than on th e prior examination. Left lower lobe 4 the most part is clear other than some minimal dependent atele ctasis or scarring. No mediastinal mass is seen. No adenopathy. Thoracic and upper abdominal aorta is normal in caliber. Heart size is normal. Previously noted pericardial effusion has resolved. There are findings of interval development of right main pulmonary artery embolic phenomenon extendin g into the right upper lobe, middle lobe and right lower lobe. Not seen on the prior examination. Axillary regions are normal in appearance. Post surgical changes in the left breast noted with surgic al clips. Liver attenuation is normal with what appears to be several small cysts. Spleen, pancreas, adrenals and upper aspect of both kidneys are unremarkable. Slightly increased stool noted within the colon. Scattered degenerative changes are seen in the spine. CT/CT chest w con* [id number] IMPRESSION: Interval placement of a left pleural drainage catheter with marked evacuation o f previously noted left pleural fluid. Minimal pleural fluid remaining with nataliya e slight pleural thickening. Marked interval improvement in aeration in the left lung. Small amount of pleur al thickening and nodularity which which appears to be trapped lung or scarred lung abutting the anterior lateral pleura in the left upper chest. Soft tissue mass lesion of malignancy not completely excluded but considered unlikely. Shor t-term follow-up in 2-3 months recommended. Interval development of right main pulmonary artery, right upper lobe, middle l obe and right lower lobe embolic phenomenon. Slight patchy infiltrate right upper lobe. Suspected inflammatory process/pneum onitis rather than related to atelectasis related to the pulmonary embolic phen omena. Other nonemergent findings as described in the body of the report. Critical value findings of pulmonary embolic phenomenon relayed to Dr. Pedersen's office and nurse 11/29/2019, 1349 hours.
[2019-11-29] MEDS: iohexol 300 mg/mL 100 mL Btl IV (13:36)
== END 2019-11-29 12:54 | disposition home or self-care (01) ==
LOC: RADWPI 12:53
PROVIDERS: Family Provider Family Medicine; PCP Family Medicine; Visit Provider Internal Medicine Medical Oncology
DX: Z85.3 Personal history of malignant neoplasm of breast (principal); Z85.118 Personal history of other malignant neoplasm of bronchus and lung; I26.99 Other pulmonary embolism without acute cor pulmonale
CPT/HCPCS: 71260; Q9967

== ENCOUNTER 2019-12-05 11:48 | Outpatient (CLI) | payer MEDICARE, OTHER, SELFPAY ==
--- NOTE | 2019-12-09 10:45 | ONC FU_ITS ---
Dr. Pedersen Patient Follow-Up Note Patient: Melony Chu Unit #: [id number]: 1940 Dicatated By: Parth Pedersen M.D.Date of Visit:Dec 05, 2019 Onc Med Follow-up/Prog Note Chief Complaint: Lung cancer. 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 By clinical evaluation her disease appeared to be stage IIIB (T1c, N3, M0). In June 2019 she sustained an injury to her left chest after falling out of bed at night. Her chest/rib x-rays on 06/20/2019 showed atelectasis at the left lung base with minimal left effusion. There was no evidence for rib fracture. She continued to have pain, and she then had further evaluation with chest CT on 07/09/2019. That study showed a pleural-based pulmonary lesion in the left upper lobe measuring 1.6 x 1.4 x 2.1 cm. There was some soft tissue thickening in the adjacent chest wall. Numerous enlarged lymph nodes were noted in the lower neck, anterior mediastinum, AP window, and hilum bilaterally. This included enlarged paratracheal and enlarged subcarinal lymph nodes. The largest measured 1.3 cm. PET/CT on 07/21/2019 showed FDG avid subpleural nodule in the anterior left upper lobe measuring 1.9 x 1.5 cm, SUV 4.9. This appeared to most likely represent a primary lung carcinoma. A right lower lobe perihilar nodule measuring 2.7 x 1.7 cm was FDG avid with SUV 5.8. FDG positive lymph nodes were noted in the bilateral paratracheal, prevascular, subaortic, subcarinal, and bilateral hilar territories. Malignant nodes were also evident in the neck bilaterally, including bilateral supraclavicular, bilateral level IV, and left level III jugulodigastric territories. There was no evidence of other metastatic disease. She was referred to Dr. Sykes, and on 08/03/2019 she underwent bronchoscopy/EBUS with FNA biopsies of left upper lobe nodule and multiple lymph nodes. The left upper lobe mass biopsy showed non-small cell carcinoma. Biopsies of station 4R, station 7, and station 10R nodes were all positive for metastatic non-small cell carcinoma. On further pathologic analysis the tumor was felt to be most consistent with poorly differentiated adenocarcinoma, most likely of lung origin. The tumor cells were positive for TTF-1, Napsin, CK-Navdeep, and CK7. The breast markers, including GCDFP and BCA 225 were negative. A next generation sequencing study was requested but was not able to be done because the biopsy sample was insufficient. Because she is a nonsmoker, I had recommended getting another biopsy to obtain additional tissue for analysis. She underwent ultrasound directed needle biopsy of a left cervical lymph node on 09/04/2019. Pathology showed metastatic carcinoma consistent with lung primary. The next generation sequencing study on that specimen still did not yield a high quality interpretable results. However, the tumor was reported to be negative for EGFR, BRAF, and KRAS mutations and it was negative for the ALK and ROS1 gene rearrangements. It was negative for PD-L1 expression, and it was MSI stable. With those findings, she was recommended to undergo trial of combined chemotherapy/immunotherapy with carboplatin/pemetrexed in combination with pembrolizumab. She has a history of having undergone lumpectomy/axillary lymph node sampling and radiation for left breast cancer in 2004. She also was given adjuvant chemotherapy and adjuvant hormonal therapy. She has had no evidence of recurrence of the breast cancer. She has additional history T2, N0 infiltrating ductal carcinoma of the left breast, which was ER negative/OH positive and HER-2/fatuma negative. Her treatment included lumpectomy/radiation, 6 cycles of FEC adjuvant chemotherapy, and adjuvant hormonal therapy, she has had no evidence of recurrence. She has a history of Graves' disease which was treated medically and she has a history of parathyroidectomy for hyperparathyroidism. Other medical illnesses include osteoporosis and anxiety/depression. She is a non-smoker. INTERIM HISTORY: Following her second biopsy, she had complained of worsening shortness of breath, and she was found to have increasing left pleural effusion for which she ultimately underwent placement of a left tunneled pleural drain on 10/15/2019. She then began cycle 1 of carboplatin/pemetrexed and pembrolizumab on 10/16/2019. She tolerated the treatment reasonably well, and she was able to continue with cycle 2 on 11/06/2019. On the 3rd day following that treatment she had developed an episode of severe weakness in the lower extremities, to the point that she was not able to use her legs. Her daughter indicates that she was talking funny and she also seemed more agitated than normal. She was evaluated in the emergency room and a CT angiogram of the head and neck was unrevealing. The episode lasted a few hours. She had further evaluation with brain MRI on 11/26/2019. It showed no evidence of acute ischemia and no evidence of metastatic disease. I had seen for a follow-up visit on 11/28/2019. At that point she was still feeling very weak. She had a repeat chest CT on 11/29/2019. The most significant finding was interval development of right main pulmonary artery, right upper lobe, middle lobe, and right lower lobe emboli. Also noted was marked improvement in the aeration of the left lung with a small amount of pleural thickening and nodularity which appear to be trapped lung versus scarred lung abutting the anterior lateral pleura in the left upper chest. Soft tissue mass lesion was not completely excluded but considered to be less likely. There was slight patchy infiltrate in the right upper lobe. This was suspected to be inflammatory. There was only minimal residual pleural fluid. She is seen for a follow-up visit. She is still pretty weak generally, but she is getting up with physical therapy and she is now ambulating with a walker. Her ECOG score is 2. She has good appetite. She has no fever or night sweats. She has shortness of breath, and she is still on oxygen. She does not complain of cough and she has not been having chest pain. She currently has no GI or complaints. She has no significant joint or bone pain. She does not complain of headache. She does have some dizziness when she first gets up. She has some numbness in her feet. She has been getting treatment for sacral decubitus skin ulcerations, but those are healing. Medications: Acetaminophen Extra Strength 2 Tablet (of 500 mg) Oral every am PRN, Dexamethasone 1 Tablet (of 4 mg) Oral b.i.d., Eliquis 2 Tablet (of 5 mg) Oral b.i.d., Escitalopram Oxalate 1 Tablet (of 20 mg) Oral daily, Folic Acid 1 Tablet (of 400 mcg) Oral daily, LORazepam 0.5 - 1 Tablet (of 1 mg) Oral t.i.d., Pantoprazole Sodium 1 Tablet (of 40 mg) Tablet, enteric coated Oral b.i.d., traMADol HCl 1 Tablet (of 50 mg) Oral t.i.d. PRN Allergies: Codeine Sulfate Review of Systems: Constitutional - She continues to have alot of weakness and unsteady gait. She is trying to get up an ambulate more. Her appetite is good and her weight is up a few pounds. No fever, night sweats, or hot flashes. ECOG score is 2, ENMT - No sinus congestion/drainage. No mouth sores. No sore throat or difficulty swallowing, Hematologic/Lymphatic - She bruises easily, Respiratory - She has shortness of breath, and she is wearing continuous oxygen. No cough. No pleuritic pain or hemoptysis, Cardiovascular - No angina pain. No palpitations, Gastrointestinal - No nausea or vomiting. Her heartburn is adequately managed with pantoprazole twice daily. No diarrhea or constipation. No blood in the stool or black stools, Genitourinary (F) - No dysuria or hematuria. No urinary frequency. No urgency or incontinence, Musculoskeletal - No joint or bone pain, Integumentary - No skin complications, Neurologic - No headache. She gets dizzy with positional changes. No numbness or tingling. No other focal neurologic symptoms, Psychiatric - She has some anxiety. No depression. She does have some difficulty sleeping. Vital Signs: Blood pressure 134/76, pulse 82, respirations 20, temp 97.0 degrees, oxygen saturation 97%. Physical Examination: Constitutional - She appears generally weak, Eyes - Sclerae nonicteric. There is a small scleral hemorrhage in the right eye. Conjunctivae appear clear, ENMT - No lesions noted in the oral cavity, Hematologic/Lymphatic - No cervical, clavicular, or axillary adenopathy noted, Respiratory - Lungs show diminished air movement at the left base, Cardiovascular - Heart rhythm is regular. There is no murmur, gallop, or rub noted, Abdomen - Soft. Liver and spleen are not enlarged. There is no abdominal mass or ascites noted and there is no inguinal adenopathy, Extremities - No edema, Neurologic - No focal neurologic deficits noted. Impression: 1. 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 There was biopsy proven mediastinal lymph node involvement. By PET/CT, her disease appeared to be stage IIIB (T1c, N3, M0). 2. She underwent ultrasound directed core needle biopsy of left cervical lymph node on 09/04/2019. Her molecular studies by next generation sequencing were unrevealing, and the tumor was negative for PD-L1 expression. 3. She subsequently developed increased left pleural effusion, requiring placement of [place] drain in the left chest. Her other medical illnesses include: 4. She has a history of Graves' disease, treated medically. 5. She has a history of parathyroidectomy for parathyroid dysfunction, ( assumed hyperparathyroidism). 6. Osteoporosis. 7. Anxiety/depression. 8. She has remote history of left breast cancer for which she underwent lumpectomy/radiation, adjuvant chemotherapy, and adjuvant hormonal therapy. She was recommended to undergo trial of combined chemotherapy/immunotherapy with carboplatin/pemetrexed in combination with pembrolizumab. She began cycle 1 on 10/16/2019. She tolerated it reasonably well, and she continue with cycle 2 on 11/06/2019. On the third day following that treatment, she had an acute episode in which she lost use of both legs. The episode lasted for several hours. A specific cause was initially not determined. In retrospect, this was most likely due to pulmonary embolism, which became evident on her restaging chest CT from 11/29/2019. That study otherwise showed significant improvement in aeration of the left lung. There is only minimal residual pleural effusion and only a small amount of pleural thickening and nodularity in the left upper chest. Plan: Although she does appear to have had a good response to her chemotherapy/immunotherapy, her treatment has been complicated by the pulmonary emboli, and at this point she continues to have very marginal performance status. As such, I am going to stop the chemotherapy after 2 cycles and just continue with maintenance immunotherapy. I will tentatively plan to continue her treatment with pembrolizumab next week. In the meantime, she has on anticoagulation with rivaroxaban at 15 mg twice daily. The dosage will change to 20 mg daily after 21 days of treatment. Signed By: Parth Pedersen M.D. <<Signature on File>>
== END 2019-12-05 11:49 | disposition home or self-care (01) ==
LOC: ONCMED 11:52
PROVIDERS: PCP Family Medicine; Visit Provider Internal Medicine Medical Oncology
DX: C34.12 Malignant neoplasm of upper lobe, left bronchus or lung (principal); C77.1 Secondary and unspecified malignant neoplasm of intrathoracic lymph nodes; J90 Pleural effusion, not elsewhere classified; I26.99 Other pulmonary embolism without acute cor pulmonale; E05.00 Thyrotoxicosis with diffuse goiter without thyrotoxic crisis or storm; E89.2 Postprocedural hypoparathyroidism; M81.0 Age-related osteoporosis without current pathological fracture; F41.8 Other specified anxiety disorders; Z97.8 Presence of other specified devices; Z85.3 Personal history of malignant neoplasm of breast; Z92.3 Personal history of irradiation; Z92.23 Personal history of estrogen therapy; Z79.899 Other long term (current) drug therapy; Z79.01 Long term (current) use of anticoagulants
CPT/HCPCS: 99214

== ENCOUNTER → 2019-12-12 08:29 | Outpatient (BNVA) | payer MEDICARE, OTHER, SELFPAY | PROVIDERS: PCP Family Medicine; Visit Provider Internal Medicine | DX: J90 Pleural effusion, not elsewhere classified (principal) | CPT/HCPCS: 87635 ==

== ENCOUNTER 2019-12-24 09:37 | Emergency (ER) | payer MEDICARE, OTHER, SELFPAY ==
--- NOTE | 2019-12-24 09:46 | XR_ITS ---
WS: [id number] EXAM: AP CHEST: PORTABLE UPRIGHT DATE OF EXAM: 12/24/2019, 1017 hours COMPARISON: Chest x-ray from 11/09/2019. HISTORY: Patient is 79 years old with known pulmonary embolus. Trouble breathing for the last week. History of lung and breast cancer. FINDINGS: The cardiac silhouette is normal in size. The mediastinal contours are similar. Left subclavian po rt remains in place with catheter ending in the SVC region. Calcified plaque in the aorta. The pulm onary vascularity is normal. Calcified granuloma right outer hilar region. Calcified lymph nodes rig ht hilum. The right lung is clear. There is minimal infiltrate in the medial left lung base. Left douglas inage tube costophrenic angle similar. Moderate infiltrate in the left lung base is similar. Chronic lung changes seen. Apical capping bilaterally. Surgical clips left axillary region. No pneumothorax No acute bony abnormality is seen. XR/XR chest 1V portable [id number] IMPRESSION: No real change in left base infiltrate. Left drainage tube remains in place. Ri ght lung is clear.
--- NOTE | 2019-12-24 09:46 | ECG_ITS ---
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 Measurements Intervals [place] Rate: 113 P: 35 UT: 132 QRS: 19 QRSD: 84 T: 44 QT: 310 QTc: 425 Interpretive Statements SINUS TACHYCARDIA WITH FREQUENT SUPRAVENTRICULAR PREMATURE COMPLEXES ABNORMAL RHYTHM ECG Compared to ECG 11/09/2019 10:38:24 Sinus rhythm no longer present Electronically Signed On 12-24-2019 20:52:16 CDT by Kari Shelton M.D. [id number]
[2019-12-24 09:48] VITALS: BP 124/79; PULSE 116; RESP 16; TEMP 36.6; O2SAT 98; BMI 23.1
--- NOTE | 2019-12-24 09:51 | W.ED.WEAKNES ---
HPI - Weakness General: Chief complaint: Epistaxis Stated complaint: NOSE BLEED/WEAKNESS/CA PT Time Seen by Provider: 12/24/19 09:41 History of Present Illness: HPI Narrative: 79-year-old female who was diagnosed earlier this year with non-small cell lung CA stage IIIb according to oncology notes. She has initiated treatment has a pleural effusion. She presents today with complaints of generalized weakness and epistaxis. MD Complaint: generalized weakness Onset (ago): day(s) Duration: intermittent Location: generalized Migration: none Relieving factors: none Exacerbating factors: none Context: other (Xarelto) Associated symptoms: Reports decreased appetite, easy bruising, headache(s), myalgias and nausea; Denies chest pain, chills, confusion, melena, diaphoresis, dysuria, fever(s), rash, short of breath, syncope or vomiting Review of Systems Const: Denies: fever(s), chills or diaphoresis ENMT: Reports: nasal discharge and nasal congestion; Denies: throat pain or ear or mastoid pain Card: Denies: chest pain or syncope Resp: Denies: dyspnea, productive cough or non-productive cough GI: Reports: nausea; Denies: vomiting or melena : Denies: dysuria Skin/Breast: Denies: rash or pruritus Neuro: Reports: headache(s); Denies: confusion Jeff/Lymph: Reports: easy bruising PFS ED PFSH: Medical History (Updated 12/24/19 @ 11:36 by Jimbo Villalobos DO) Breast cancer Breast - Ductal carcinoma Left breast in 2003. Lumpectomy and chemotherapy done in [facility]. she states that she follows up with the oncology department in [facility]. Depression Labial abscess - Anticipated performing a vulvar biopsy, that after the local was injected and purulent drainage returned the procedure was transitioned to an I&D. small amount of pus noted; flushed til clear Still uncertain if abscess versus mass Start clindamycin oral x 10 days Warm water soaks several times/day Vegetable shortening for skin barrier due to incontinence If no improvement after abx, needs biopsy Return in 3 weeks if needed Parathyroid dysfunction Patient denies medical problems Patient denies any past medical history of hypertension, diabetes, heart, lung, liver, kidney, bleeding, or clotting problems. Surgical History History of dilation and curettage Done for heavy bleeding in 1965 History of loop electrical excision procedure (LEEP) Done for an abnormal Pap smear in 1999. She states that all Pap smears since then have been normal. History of lumpectomy of left breast Left breast cancer 2003. She states that she had lymph node removal a month after this procedure. History of parathyroidectomy Done in the Family History Mother Diabetes Thyroid condition Brother Diabetes Father Heart disease Family/Other Patient denies medical problems Patient denies any family history of hypertension, stroke, hypercholesterolemia, breast cancer, ovarian cancer, uterine cancer, colon cancer. Social History Smoking and tobacco status: never smoked Alcohol intake: never Lives independently: Yes Household members: none Marital status: / Current occupational status: retired History of recent travel: No Current gender identity: Female Physical Exam Const: COMMON NORMALS: no acute distress GENERAL APPEARANCE: cooperative and comfortable ORIENTATION/CONSCIOUSNESS: Yes awake, Yes oriented to person, Yes oriented to place and Yes oriented to time HENMT: COMMON NORMALS: normocephalic, atraumatic and hearing grossly normal bilaterally HEAD & SCALP: normocephalic and atraumatic OTHER: Amount of bloody crust within each nares no active bleeding crusts were not disturbed to prevent recurrence of bleeding. Eye: COMMON NORMALS: Equal, round and reactive pupils present, EOMs intact bilaterally, conjunctivae normal and no scleral icterus CONJUNCTIVA: Yes conjunctivae normal PUPIL: Yes Equal, round and reactive pupils present Neck/C-Spine: COMMON NORMALS: full ROM, no lymphadenopathy, supple and no JVD Lymph: LYMPHATIC: no lymphadenopathy noted and no lymphedema noted Resp: COMMON NORMALS: normal respiratory effort, No retractions, No use of accessory muscles and clear to auscultation bilaterally AUSCULTATION: clear to auscultation bilaterally Cardio: COMMON NORMALS: no JVD, regular rate, regular rhythm and No murmurs present (Cardio) RATE: regular rate RHYTHM: regular rhythm GI: COMMON NORMALS: Soft to palpation and No hepatosplenomegaly present AUSCULTATION: Yes normoactive bowel sounds PALPATION: Yes Soft to palpation, No Tenderness to palpation present (GI), No Guarding due to palpation present (GI) and Yes No hepatosplenomegaly present Extremity: COMMON NORMALS: normal to inspection, capillary refill normal, no clubbing, cyanosis or edema, no calf tenderness and no pedal edema Neuro: SENSORIUM/ORIENTATION: Yes oriented to person, Yes oriented to place and Yes oriented to time Skin: COMMON NORMALS: no rashes or lesions noted GENERAL SKIN EXAM: no rashes or lesions noted Course Vital Signs: Vital signs: Vital Signs Temperature 97.9 F 12/24/19 09:48 Pulse Rate 104 H 12/24/19 11:57 Respiratory Rate 26 H 12/24/19 11:57 Blood Pressure 132/87 12/24/19 11:57 Pulse Oximetry 96 12/24/19 11:57 MDM - Weakness MDM Narrative: Medical decision making narrative: Cussed with Dr. Bain. He recommends starting on Afrin nasal spray 4 sprays 4 times a day he will see the patient in the next day or 2 at the office. We discussed doing a nasal packing but since she is not actively bleeding now decided against it. Her hemoglobin remained stable. If she has recurrence of epistaxis or unstoppable epistaxis she should return to the emergency room will have case management call and get her an appointment with Dr. Bain within the next day or 2. Lab Data: Labs: Lab Results 12/24/19 12/24/19 Range/Units 10:11 10:11 WBC 12.7 H (4.0-10.0) 10^3/ uL RBC 3.43 L (4.1-5.3) 10^6/u L Hgb 11.1 L (11.5-15.3) g/dL Hct 33.7 L (37.0-47.0) % MCV 98.3 (81-99) fL MCH 32.4 (28.0-34.0) pg MCHC 32.9 (30.0-36.0) g/dL RDW 21.1 H (12.1-15.1) % Plt Count 124 L (130-400) 10^3/c mm MPV 8.7 (7.4-10.4) fL Neut % (Auto) 86.2 % Lymph % (Auto) 6.9 % Loving % (Auto) 4.8 % Eos % (Auto) 0.9 % Baso % (Auto) 0.4 % Neut # (Auto) 9.96 H (1.8-7.7) 10^3/u L Lymph # (Auto) 0.9 (0.8-4.8) 10^3/u L Loving # (Auto) 0.6 (0.2-0.9) 10^3/u L Eos # (Auto) 0.1 (0.0-0.8) 10^3/u L Baso # (Auto) 0.1 (0.0-0.1) 10^3/u L Nucleated RBC % (a uto) 0.7 % Nucleated RBCs # 0.1 /100WBC Sodium 133 L (136-145) mmol/L Potassium 4.0 (3.5-5.1) mmol/L Chloride 95 L (98-107) mmol/L Carbon Dioxide 27 (22-29) mmol/L Anion Gap 15.0 (5-19) BUN 22 (8-23) mg/dL Creatinine 0.5 (0.5-0.9) mg/dL GFR Calculation Not Reportable Glucose 181 H (65-115) mg/dL Calculated Osmolal ity 277 L (285-295) mOsm/k g Calcium 8.5 (8.5-10.5) mg/dL Total Bilirubin 0.3 (0.15-1.2) mg/dL AST 13 (0-32) U/L ALT 37 H (0-33) U/L Alkaline Phosphata se 72 (35-105) IU/L Total Protein 6.0 L (6.6-8.7) g/dL Albumin 3.5 (3.5-5.2) g/dL Globulin 2.5 (1.3-4.6) g/dL Discharge Plan Discharge Patient Disposition: Home Clinical Impression: Epistaxis, Non-small cell carcinoma of lung Condition: Stable Prescriptions: New Afrin (oxymetazoline) 0.05 % mist 4 spray INTRANASAL QID 3 Days RF: 0 No Action escitalopram oxalate 20 mg tablet 20 mg PO DAILY RF: 0 acetaminophen [Tylenol Extra Strength] 500 mg Tablet 1,000 mg PO Q8H PRN (Reason: Pain) RF: 0 dexamethasone 4 mg Tablet 4 mg PO BID RF: 0 pantoprazole [Protonix] 40 mg Tablet,Delayed Release (Dr/Ec) 40 mg PO BID RF: 0 folic acid 1 mg Tablet 1 mg PO DAILY RF: 0 scopolamine base 1 mg over 3 days Patch 3 Day 1 patch TRANSDERMAL Q3D PRN (Reason: Nausea) RF: 0 tramadol 50 mg Tablet 50 mg PO Q6H PRN (Reason: Pain) RF: 0 Ativan 1 mg Tablet 0.5 mg PO BEDTIME PRN (Reason: Anxiety) RF: 0 Xarelto 20 mg Tablet 20 mg PO DAILY RF: 0 Discharge Orders: Discharge Order (Routine); Ordered 12/24/19 Ordered By: Jimbo Villalobos Referrals: Eliecer Rodriguez MD [Primary Care Provider] - Discharge Diet: Clear Liquid Discharge Activity: Limit activity as instructed Activity Restrictions/Additional Instructions: Dr. 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
[2019-12-24 10:21] LABS: Basophils # 0.1 10^3/uL (0.0-0.1); Basophils % 0.4 %; Eosinophils # 0.1 10^3/uL (0.0-0.8); Eosinophils % 0.9 %; Hematocrit 33.7 % (37.0-47.0); Hemoglobin 11.1 g/dL (11.5-15.3); Lymphocytes # 0.9 10^3/uL (0.8-4.8); Lymphocytes % 6.9 %; Mean Corpuscular HGB Conc 32.9 g/dL (30.0-36.0); Mean Corpuscular Hemoglobin 32.4 pg (28.0-34.0); Mean Corpuscular Volume 98.3 fL (81-99); Mean Platelet Volume 8.7 fL (7.4-10.4); Monocytes # 0.6 10^3/uL (0.2-0.9); Monocytes % 4.8 %; Neutrophils # 9.96 10^3/uL (1.8-7.7); Nucleated Red Blood Cells # 0.1 /100WBC; Nucleated Red Blood Cells % 0.7 %; Platelet Count 124 10^3/cmm (130-400); Red Blood Count 3.43 10^6/uL (4.1-5.3); Red Cell Distribution Width 21.1 % (12.1-15.1); White Blood Count 12.7 10^3/uL (4.0-10.0)
[2019-12-24 10:26] VITALS: BP 106/77; BP 108/67; BP 116/78; PULSE 106; PULSE 122; PULSE 130
[2019-12-24 10:39] LABS: Neutrophils % 86.2 %
[2019-12-24 10:41] LABS: Alanine Aminotransferase 37 U/L (0-33); Albumin Level 3.5 g/dL (3.5-5.2); Alkaline Phosphatase 72 IU/L (35-105); Aspartate Amino Transferase 13 U/L (0-32); Blood Urea Nitrogen 22 mg/dL (8-23); Calcium 8.5 mg/dL (8.5-10.5); Carbon Dioxide 27 mmol/L (22-29); Chloride 95 mmol/L (98-107); Globulin 2.5 g/dL (1.3-4.6); Glucose 181 mg/dL (65-115); Osmolality Calculated 277 mOsm/kg (285-295); Sodium 133 mmol/L (136-145); Total Bilirubin 0.3 mg/dL (0.15-1.2)
[2019-12-24] MEDS: sodium chloride 0.9% 1,000 ML 999 ML IV (10:58)
[2019-12-24 11:34] VITALS: BP 104/78; PULSE 104; RESP 21; O2SAT 95
[2019-12-24 11:57] VITALS: BP 132/87; PULSE 104; RESP 26; O2SAT 96
--- NOTE | 2019-12-24 12:16 | DCPLANNER ---
manager general was asked to schedule a follow up appointment for patient with Dr. Osorio, ENT. manager general called the office of Dr. Osorio, spoke with Ijeoma, a follow up appointment is scheduled for Tuesday, December 24, 2019 at 3:20. Clinic will call patient with appointment information.
--- NOTE | 2019-12-27 14:53 | DCPLANNER ---
Patient had an appointment scheduled for 12.24.[address] Osorio - patient did attend the appointment.
== END 2019-12-24 12:03 | disposition home or self-care (01) ==
PROVIDERS: Emergency Provider Family Medicine; PCP Family Medicine
DX: R04.0 Epistaxis (principal); C34.90 Malignant neoplasm of unspecified part of unspecified bronchus or lung; Z85.3 Personal history of malignant neoplasm of breast
CPT/HCPCS: 12345; 71045; 80053; 85025; 93005; 96360; 99283; J7030

== ENCOUNTER 2019-12-31 20:44 | Outpatient (CLI) | payer MEDICARE, OTHER, SELFPAY ==
[2019-12-31 20:58] LABS: Basophils % 0.4 %; Hematocrit 34.7 % (37.0-47.0); Hemoglobin 11.3 g/dL (11.5-15.3); Lymphocytes # 0.9 10^3/uL (0.8-4.8); Lymphocytes % 9.1 %; Mean Corpuscular HGB Conc 32.6 g/dL (30.0-36.0); Mean Corpuscular Hemoglobin 32.6 pg (28.0-34.0); Monocytes # 0.5 10^3/uL (0.2-0.9); Monocytes % 4.5 %; Neutrophils # 7.93 10^3/uL (1.8-7.7); Neutrophils % 76.8 %; Nucleated Red Blood Cells # 0.1 /100WBC; Nucleated Red Blood Cells % 1.1 %; Platelet Count 119 10^3/cmm (130-400); Red Blood Count 3.47 10^6/uL (4.1-5.3); Red Cell Distribution Width 20.5 % (12.1-15.1); White Blood Count 10.3 10^3/uL (4.0-10.0)
[2019-12-31 21:24] LABS: Alanine Aminotransferase 39 U/L (0-33); Albumin Level 3.5 g/dL (3.5-5.2); Alkaline Phosphatase 77 IU/L (35-105); Anion Gap 14.8 (5-19); Aspartate Amino Transferase 15 U/L (0-32); Blood Urea Nitrogen 11 mg/dL (8-23); Calcium 8.7 mg/dL (8.5-10.5); Carbon Dioxide 25 mmol/L (22-29); Chloride 96 mmol/L (98-107); Globulin 2.6 g/dL (1.3-4.6); Glucose 162 mg/dL (65-115); Osmolality Calculated 277 mOsm/kg (285-295); Potassium 3.8 mmol/L (3.5-5.1); Sodium 132 mmol/L (136-145); Total Bilirubin 0.3 mg/dL (0.15-1.2); Total Protein 6.1 g/dL (6.6-8.7)
[2019-12-31 23:03] LABS: Slide Review Slide Review Perform
== END 2019-12-31 20:45 | disposition home or self-care (01) ==
LOC: LAB 20:47
PROVIDERS: PCP Family Medicine; Visit Provider Internal Medicine Medical Oncology
DX: D38.1 Neoplasm of uncertain behavior of trachea, bronchus and lung (principal)
CPT/HCPCS: 80053; 85025